=== PATIENT | male | born 1960 | race Two or more races ===

== ENCOUNTER 2016-03-02 14:31 | Inpatient (IN) | payer OTHER ==
[2016-03-02] VITALS: BP 91/69
[~2016-03-02] VITALS: Ht 165.1 cm; Wt 65.8 kg
[2016-03-02 15:06] LABS: BASOPHILS # (AUTO) 0.1 /CMM (0.0-0.2); BASOPHILS % (AUTO) 0.6 % (0.0-2.0); DIFF TOTAL % 100 %; EOSINOPHILS # (AUTO) 0.1 /CMM (0.0-0.7); EOSINOPHILS % (AUTO) 0.8 % (0.0-6.0); HEMATOCRIT 34 % (39-51); HEMOGLOBIN 10.7 g/dL (13.5-17.5); LYMPHOCYTES # (AUTO) 1.5 /CMM (0.8-4.8); MEAN CORPUSCULAR HEMOGLOBIN 27 PG (26.0-33.0); MEAN CORPUSCULAR HGB CONC 32 g/dl (31.0-36.0); MEAN CORPUSCULAR VOLUME 86 fL (80-96); MONOCYTES # (AUTO) 0.6 /CMM (0.1-1.30); MONOCYTES % (AUTO) 4.7 % (2.0-12.0); NEUTROPHILS # (AUTO) 11.3 /CMM (1.8-8.9); NEUTROPHILS % (AUTO) 82.9 % (43.0-81.0); PLATELET COUNT (AUTO) 480 /CMM (150-450); RED BLOOD CELL COUNT(AUTO) 3.92 MIL/uL (4.5-6.0); WHITE BLOOD COUNT (AUTO) 13.6 K/uL (4.3-11.0)
[2016-03-02] MEDS ORDERED: AMIN30LI4 PO (15:14)
[2016-03-02] MEDS ORDERED: ACET-868 PO (15:14)
[2016-03-02] MEDS ORDERED: GABA-532 PO (15:14)
[2016-03-02] MEDS ORDERED: HYDR-3028 PO (15:14)
[2016-03-02] MEDS ORDERED: ASCO500T8 PO (15:14)
[2016-03-02] MEDS ORDERED: MELA3TAB PO (15:14)
[2016-03-02] MEDS ORDERED: FERR325T28 PO (15:14)
[2016-03-02] MEDS ORDERED: HYDR-3326 PO (15:14)
[2016-03-02] MEDS ORDERED: ACET-2605 PO (15:14)
[2016-03-02] MEDS ORDERED: ALBU2.5V12 IH (15:14)
[2016-03-02] MEDS ORDERED: SUMA25TA PO (15:14)
[2016-03-02] MEDS ORDERED: HEPA10009 SQ (15:14)
[2016-03-02] MEDS ORDERED: FINA5TAB11 PO (15:14)
[2016-03-02] MEDS ORDERED: TRAM50TA2 PO (15:14)
[2016-03-02] MEDS ORDERED: CHLO15MO2 MM (15:14)
[2016-03-02] MEDS ORDERED: MAGN400O6 PO (15:14)
[2016-03-02] MEDS ORDERED: LANS30CA56 PO (15:14)
[2016-03-02] MEDS ORDERED: MIDO5TAB PO (15:14)
[2016-03-02] MEDS ORDERED: MULT-24 PO (15:14)
[2016-03-02] MEDS ORDERED: DOCU-270 PO (15:14)
[2016-03-02 15:16] LABS: CALCIUM, SERUM 8.9 mg/dL (8.5-10.1); CREATININE 1.4 mg/dL (0.6-1.3)
[2016-03-02 15:20] LABS: INR 1.05 (0.87-1.13)
[2016-03-02 15:22] LABS: BILIRUBIN,DIRECT 0.1 mg/dL (0.0-0.2); BILIRUBIN,TOTAL 0.4 mg/dL (0.2-1.0); INDIRECT BILIRUBIN 0.3 mg/dL (0.0-1.1); TOTAL PROTEIN, SERUM 8.1 g/dL (6.4-8.2)
[2016-03-02 15:23] LABS: KETONES,URINE Negative (NEGATIVE); LEUKOCYTE ESTERASE ,URINE Large (NEGATIVE); PH,URINE 6.5 (5.0-8.0)
[2016-03-02 15:24] LABS: TROPONIN I 0.021 ng/mL (0.00-0.056)
[2016-03-02 15:24] LABS: ADD UA MICROSCOPIC YES
[2016-03-02 15:25] LABS: ADD URINE CULTURE YES
[2016-03-02] MEDS ORDERED: IV NS 0.9% 500 ML BAG IV ONE ×2 (15:30→17:00)
[2016-03-02] MEDS ORDERED: IV NS 0.9% 500 ML IV ONE (15:30)
[2016-03-02 15:40] LABS: LACTIC ACID 1.6 mmol/L (0.4-2.0)
[2016-03-02] MEDS ORDERED: IV NS 0.9% 1,000 ML ONE ×2 (16:37→21:54)
[2016-03-02] MEDS ORDERED: IV NS 0.9% 1,000 ML BAG IV ONE (17:00)
[2016-03-02 17:45] LABS: CALCIUM, SERUM 8.3 mg/dL (8.5-10.1); CREATININE 1.5 mg/dL (0.6-1.3)
[2016-03-02] MEDS ORDERED: CEFTRIAXONE 1GM BAG (ER ONLY) 1 GM/50 ML PIGGYBACK IV ONE (18:00)
[2016-03-02] MEDS ORDERED: CEFTRIAXONE 1GM BAG (ER ONLY) 50 ML IV ONE (18:03)
[2016-03-02] MEDS ORDERED: DOSING PER PHARMACY-TOBRA INHALATION 1 EA XX PRN ×2 (18:30→19:30)
[2016-03-02] MEDS ORDERED: IV NS 0.9% 1,000 ML IV PRN (18:35)
[2016-03-02] MEDS ORDERED: MAG HYDROX/AL HYDROX/SIMETH 30 ML UDC PO PRN (19:00)
[2016-03-02] MEDS ORDERED: ONDANSETRON HCL/PF 4 MG/2 ML VIAL IVP PRN (19:00)
[2016-03-02] MEDS ORDERED: hydrOXYzine PAMOATE 50 MG CAPSULE PO PRN (19:00)
[2016-03-02] MEDS ORDERED: TOBRAMYCIN 80 MG/2 ML VIAL INH ONE (19:00)
[2016-03-02] MEDS ORDERED: PIPERACILLIN /TAZOBACTAM 3.375 G in IV D5W 50 ML IV ONE (19:00)
[2016-03-02] MEDS ORDERED: MAGNESIUM HYDROXIDE 30 ML UDC PO PRN (19:00)
[2016-03-02] MEDS ORDERED: ZOLPIDEM TARTRATE 5 MG TABLET PO PRN (19:00)
[2016-03-02] MEDS ORDERED: Z GUARD REMEDY 2 OZ OINT TP PRN (19:00)
[2016-03-02] MEDS ORDERED: FEE PK DOSING 1 MIN EA MC ONE (19:12)
[2016-03-02] MEDS ORDERED: hydrOXYzine PAMOATE 25 MG CAPSULE PO PRN (20:18)
[2016-03-02 21:00] VITALS: BP 71/37
[2016-03-02] MEDS: GABAPENTIN 100 MG CAPSULE PO SCH (21:29)
[2016-03-02] MEDS: MIDODRINE HCL (5MG) 5 MG TABLET PO SCH (21:29)
[2016-03-02] MEDS: CHLORHEXIDINE GLUCONATE 15 ML UDC MM SCH (21:29)
[2016-03-02] MEDS: DOCUSATE SODIUM 100 MG CAPSULE PO SCH (21:30)
[2016-03-02] MEDS: ENOXAPARIN SODIUM 40 MG/0.4 ML DISP.SYRIN SQ SCH (21:31)
[2016-03-02] MEDS ORDERED: SECONDARY IV SET 1 EA INFUS.SET MC ONE (21:45)
[2016-03-02] MEDS ORDERED: IV SET PRIMARY PUMP SET 1 EA INFUS.SET MC ONE (21:45)
[2016-03-02] MEDS: VANCOMYCIN 0.75 GM in IV D5W 250 ML IV SCH (21:58)
[2016-03-02] MEDS: ALBUTEROL FS 2.5 MG/0.5 ML VIAL.NEB IH SCH (23:17)
[2016-03-02 23:57] VITALS: BP 91/69
[2016-03-03] VITALS (9 sets, daily range): BP systolic 71–136; BP diastolic 41–76
[2016-03-03] MEDS: ACETAMINOPHEN 325 MG TABLET PO PRN ×4 (00:04→21:01)
[2016-03-03] MEDS ORDERED: SECONDARY IV SET 1 EA INFUS.SET MC ONE ×2 (00:13→14:50)
[2016-03-03] MEDS: PIPERACILLIN /TAZOBACTAM 3.375 G in IV D5W 50 ML IV SCH ×4 (00:37→17:17)
[2016-03-03] MEDS: GABAPENTIN 100 MG CAPSULE PO SCH ×3 (05:46→21:01)
[2016-03-03] MEDS: MIDODRINE HCL (5MG) 5 MG TABLET PO SCH ×3 (05:46→21:01)
[2016-03-03] MEDS: HYDROCODONE/APAP 5/325MG 1 EACH TABLET PO PRN (06:11)
[2016-03-03 06:48] LABS: BASOPHILS # (AUTO) 0.1 /CMM (0.0-0.2); BASOPHILS % (AUTO) 0.4 % (0.0-2.0); DIFF TOTAL % 100 %; EOSINOPHILS % (AUTO) 0.3 % (0.0-6.0); HEMATOCRIT 31 % (39-51); HEMOGLOBIN 10.6 g/dL (13.5-17.5); LYMPHOCYTES # (AUTO) 1.6 /CMM (0.8-4.8); LYMPHOCYTES % (AUTO) 10.1 % (20.0-44.0); MEAN CORPUSCULAR HEMOGLOBIN 29 PG (26.0-33.0); MEAN CORPUSCULAR HGB CONC 34 g/dl (31.0-36.0); MEAN CORPUSCULAR VOLUME 85 fL (80-96); MONOCYTES # (AUTO) 0.8 /CMM (0.1-1.30); MONOCYTES % (AUTO) 5.2 % (2.0-12.0); NEUTROPHILS # (AUTO) 13.3 /CMM (1.8-8.9); PLATELET COUNT (AUTO) 298 /CMM (150-450); RED BLOOD CELL COUNT(AUTO) 3.62 MIL/uL (4.5-6.0); WHITE BLOOD COUNT (AUTO) 15.8 K/uL (4.3-11.0)
[2016-03-03 07:06] LABS: CALCIUM, SERUM 8.8 mg/dL (8.5-10.1); CREATININE 1.1 mg/dL (0.6-1.3); POTASSIUM 3.9 mmol/L (3.5-5.1)
[2016-03-03] MEDS: ALBUTEROL FS 2.5 MG/0.5 ML VIAL.NEB IH SCH ×3 (07:30→23:16)
[2016-03-03] MEDS: TOBRAMYCIN 80 MG/2 ML VIAL INH SCH ×2 (07:30→19:34)
[2016-03-03] MEDS: PROSOURCE / PROSTAT (PYXIS) 30 ML UDC PO SCH ×2 (08:32→16:30)
[2016-03-03] MEDS: FINASTERIDE (5 MG) 5 MG TABLET PO SCH (08:32)
[2016-03-03] MEDS: PANTOPRAZOLE 40 MG TABLET.DR PO SCH (08:32)
[2016-03-03] MEDS: FERROUS SULFATE (325 MG) 325 MG/TAB TABLET PO SCH ×3 (08:32→16:30)
[2016-03-03] MEDS: ASCORBIC ACID 500 MG TABLET PO SCH (08:32)
[2016-03-03] MEDS: CHLORHEXIDINE GLUCONATE 15 ML UDC MM SCH ×2 (08:32→21:00)
[2016-03-03] MEDS: TRAMADOL HCL 50 MG TABLET PO SCH ×3 (08:32→16:30)
[2016-03-03] MEDS: VANCOMYCIN 0.75 GM in IV D5W 250 ML IV SCH (08:35)
[2016-03-03] MEDS: IV NS 0.9% 1,000 ML IV PRN ×2 (08:43→11:26)
[2016-03-03 09:15] LABS: CHOLESTEROL 114 mg/dL (<200); HDL CHOLESTEROL 39 mg/dL (40-60); IRON, SERUM 13 ug/dl (50-175); LDL 57 mg/dL (0-99); PERCENT SATURATION 6 % (14-33); THYROID STIMULATING HORMONE 0.465 uIU/mL (0.358-3.74); TOTAL IRON BINDING CAPACITY 227 ug/dl (250-450); TRIGLYCERIDES 74 mg/dL (30-150)
[2016-03-03 09:22] LABS: TROPONIN I < 0.017 ng/mL (0.00-0.056)
[2016-03-03] MEDS ORDERED: HYDROGEL DRESSING 90 GM TUBE TP PRN (11:00)
[2016-03-03] MEDS: METRONIDAZOLE 500MG/ NS 100ML 250 MG in PREMIX 1 EA IV SCH ×2 (12:47→18:28)
[2016-03-03] MEDS: HYDROGEL DRESSING 90 GM TUBE TP SCH (14:25)
[2016-03-03] MEDS: SOD FERRIC GLUC 125 MG in IV NS 0.9% 100 ML IV SCH (14:57)
[2016-03-03] MEDS: MEROPENEM 500 MG in IV NS 0.9% 50 ML IV SCH (20:58)
[2016-03-03] MEDS: DOCUSATE SODIUM 100 MG CAPSULE PO SCH (21:00)
[2016-03-03] MEDS: ACIDOPHILUS/BULGARICUS 1 EACH TAB.CHEW PO SCH (21:00)
[2016-03-03] MEDS: ENOXAPARIN SODIUM 40 MG/0.4 ML DISP.SYRIN SQ SCH (21:03)
[2016-03-03] MEDS: VANCOMYCIN HCL 125 MG/2.5 ML ORAL.SUSP PO SCH (21:05)
[2016-03-04] MEDS: IV NS 0.9% 1,000 ML IV PRN ×3 (00:11→21:45)
[2016-03-04] MEDS: METRONIDAZOLE 500MG/ NS 100ML 250 MG in PREMIX 1 EA IV SCH ×4 (00:14→17:09)
[2016-03-04] MEDS: HYDROCODONE/APAP 5/325MG 1 EACH TABLET PO PRN ×3 (00:19→21:47)
[2016-03-04] MEDS: MEROPENEM 500 MG in IV NS 0.9% 50 ML IV SCH ×3 (04:12→21:49)
[2016-03-04] MEDS: GABAPENTIN 100 MG CAPSULE PO SCH ×3 (04:15→21:47)
[2016-03-04] MEDS: MIDODRINE HCL (5MG) 5 MG TABLET PO SCH ×3 (04:15→21:46)
[2016-03-04 07:11] LABS: TROPONIN I < 0.017 ng/mL (0.00-0.056)
[2016-03-04] MEDS: ALBUTEROL FS 2.5 MG/0.5 ML VIAL.NEB IH SCH ×3 (07:15→23:33)
[2016-03-04 07:16] LABS: ALANINE AMINOTRANSFERASE 16 U/L (12-78); ALBUMIN 2.5 g/dL (3.4-5.0); ANION GAP 12 (5-14); ASPARTATE AMINOTRANSFERASE 21 U/L (15-37); BILIRUBIN,TOTAL 0.2 mg/dL (0.2-1.0); CALCIUM, SERUM 8.4 mg/dL (8.5-10.1); CARBON DIOXIDE 24 mmol/L (21-32); CHLORIDE 107 mmol/L (98-107); CREATININE 0.7 mg/dL (0.6-1.3); GFR 117 mL/min (>60); GLUCOSE 111 mg/dL (74-106); PHOSPHORUS 2.7 mg/dL (2.5-4.9); SODIUM SERUM 141 mmol/L (136-145); TOTAL PROTEIN, SERUM 7.2 g/dL (6.4-8.2); UREA NITROGEN, BLOOD 13 mg/dL (7-18)
[2016-03-04 07:25] LABS: BASOPHILS % (AUTO) 0.4 % (0.0-2.0); DIFF TOTAL % 100 %; EOSINOPHILS # (AUTO) 0.1 /CMM (0.0-0.7); EOSINOPHILS % (AUTO) 1.5 % (0.0-6.0); HEMATOCRIT 27 % (39-51); LYMPHOCYTES # (AUTO) 1.1 /CMM (0.8-4.8); LYMPHOCYTES % (AUTO) 15.8 % (20.0-44.0); MEAN CORPUSCULAR HEMOGLOBIN 29 PG (26.0-33.0); MEAN CORPUSCULAR HGB CONC 34 g/dl (31.0-36.0); MEAN CORPUSCULAR VOLUME 86 fL (80-96); MONOCYTES # (AUTO) 0.6 /CMM (0.1-1.30); MONOCYTES % (AUTO) 8.5 % (2.0-12.0); NEUTROPHILS # (AUTO) 5.3 /CMM (1.8-8.9); NEUTROPHILS % (AUTO) 73.8 % (43.0-81.0); PLATELET COUNT (AUTO) 235 /CMM (150-450); WHITE BLOOD COUNT (AUTO) 7.2 K/uL (4.3-11.0)
[2016-03-04] MEDS: TOBRAMYCIN 80 MG/2 ML VIAL INH SCH ×2 (07:35→23:33)
[2016-03-04 07:50] LABS: POTASSIUM 2.7 mmol/L (3.5-5.1)
[2016-03-04 08:00] VITALS: BP 99/54
[2016-03-04] MEDS: ACIDOPHILUS/BULGARICUS 1 EACH TAB.CHEW PO SCH ×3 (08:30→17:08)
[2016-03-04] MEDS: FINASTERIDE (5 MG) 5 MG TABLET PO SCH (08:31)
[2016-03-04] MEDS: PANTOPRAZOLE 40 MG TABLET.DR PO SCH (08:31)
[2016-03-04] MEDS: TRAMADOL HCL 50 MG TABLET PO SCH ×3 (08:31→17:09)
[2016-03-04] MEDS: ASCORBIC ACID 500 MG TABLET PO SCH (08:31)
[2016-03-04] MEDS: FERROUS SULFATE (325 MG) 325 MG/TAB TABLET PO SCH (08:31)
[2016-03-04] MEDS: CHLORHEXIDINE GLUCONATE 15 ML UDC MM SCH ×2 (08:31→21:45)
[2016-03-04] MEDS: PROSOURCE / PROSTAT (PYXIS) 30 ML UDC PO SCH ×2 (08:34→17:00)
[2016-03-04] MEDS: VANCOMYCIN HCL 125 MG/2.5 ML ORAL.SUSP PO SCH ×5 (08:34→17:00)
[2016-03-04] MEDS: POTASSIUM CHLORIDE 20 MEQ TAB.PRT.SR PO SCH ×4 (09:16→13:12)
[2016-03-04 09:35] VITALS: BP 99/54
[2016-03-04] MEDS: HYDROGEL DRESSING 90 GM TUBE TP SCH (11:46)
[2016-03-04] MEDS ORDERED: SECONDARY IV SET 1 EA INFUS.SET MC ONE (12:20)
[2016-03-04] MEDS: SOD FERRIC GLUC 125 MG in IV NS 0.9% 100 ML IV SCH (13:51)
[2016-03-04 16:00] VITALS: BP 129/79
[2016-03-04 20:00] VITALS: BP 126/75
[2016-03-04 20:19] VITALS: BP 126/75
[2016-03-04] MEDS: DOCUSATE SODIUM 100 MG CAPSULE PO SCH (21:47)
[2016-03-04] MEDS: ENOXAPARIN SODIUM 40 MG/0.4 ML DISP.SYRIN SQ SCH (21:52)
[2016-03-05] MEDS: GABAPENTIN 100 MG CAPSULE PO SCH ×3 (04:55→22:20)
[2016-03-05] MEDS: HYDROCODONE/APAP 5/325MG 1 EACH TABLET PO PRN (04:56)
[2016-03-05] MEDS: MEROPENEM 500 MG in IV NS 0.9% 50 ML IV SCH ×2 (04:57→13:23)
[2016-03-05] MEDS: MIDODRINE HCL (5MG) 5 MG TABLET PO SCH ×3 (04:57→22:22)
[2016-03-05 06:44] LABS: BASOPHILS % (AUTO) 0.3 % (0.0-2.0); DIFF TOTAL % 100 %; EOSINOPHILS # (AUTO) 0.2 /CMM (0.0-0.7); EOSINOPHILS % (AUTO) 3.2 % (0.0-6.0); HEMATOCRIT 29 % (39-51); HEMOGLOBIN 9.6 g/dL (13.5-17.5); LYMPHOCYTES # (AUTO) 1.4 /CMM (0.8-4.8); LYMPHOCYTES % (AUTO) 19.8 % (20.0-44.0); MEAN CORPUSCULAR HEMOGLOBIN 29 PG (26.0-33.0); MEAN CORPUSCULAR HGB CONC 33 g/dl (31.0-36.0); MEAN CORPUSCULAR VOLUME 86 fL (80-96); MONOCYTES # (AUTO) 0.5 /CMM (0.1-1.30); MONOCYTES % (AUTO) 7.1 % (2.0-12.0); NEUTROPHILS # (AUTO) 4.8 /CMM (1.8-8.9); NEUTROPHILS % (AUTO) 69.6 % (43.0-81.0); PLATELET COUNT (AUTO) 322 /CMM (150-450); RED BLOOD CELL COUNT(AUTO) 3.37 MIL/uL (4.5-6.0); WHITE BLOOD COUNT (AUTO) 6.9 K/uL (4.3-11.0)
[2016-03-05 06:47] LABS: CALCIUM, SERUM 8.9 mg/dL (8.5-10.1); CREATININE 0.7 mg/dL (0.6-1.3); POTASSIUM 3.3 mmol/L (3.5-5.1)
[2016-03-05] MEDS: ALBUTEROL FS 2.5 MG/0.5 ML VIAL.NEB IH SCH ×3 (07:01→23:27)
[2016-03-05] MEDS: IV NS 0.9% 1,000 ML IV PRN (07:07)
[2016-03-05] MEDS: TOBRAMYCIN 80 MG/2 ML VIAL INH SCH (07:19)
[2016-03-05 08:00] VITALS: BP 132/87
[2016-03-05] MEDS: PANTOPRAZOLE 40 MG TABLET.DR PO SCH (08:03)
[2016-03-05] MEDS: CHLORHEXIDINE GLUCONATE 15 ML UDC MM SCH ×2 (08:55→22:20)
[2016-03-05] MEDS: ASCORBIC ACID 500 MG TABLET PO SCH (08:55)
[2016-03-05] MEDS: ACIDOPHILUS/BULGARICUS 1 EACH TAB.CHEW PO SCH ×3 (08:55→17:22)
[2016-03-05] MEDS: TRAMADOL HCL 50 MG TABLET PO SCH ×3 (08:55→17:22)
[2016-03-05] MEDS: FINASTERIDE (5 MG) 5 MG TABLET PO SCH (08:55)
[2016-03-05] MEDS: PROSOURCE / PROSTAT (PYXIS) 30 ML UDC PO SCH ×2 (08:57→17:00)
[2016-03-05] MEDS: POTASSIUM CHLORIDE 20 MEQ TAB.PRT.SR PO SCH ×3 (08:58→11:00)
[2016-03-05] MEDS ORDERED: POTASSIUM CHLORIDE 20 MEQ TAB.PRT.SR PO ONE (09:30)
[2016-03-05] MEDS: HYDROGEL DRESSING 90 GM TUBE TP SCH (13:24)
[2016-03-05 16:00] VITALS: BP 125/85
[2016-03-05] MEDS ORDERED: IV NS 0.9% 250 ML IV ONE (16:07)
[2016-03-05] MEDS: SOD FERRIC GLUC 125 MG in IV NS 0.9% 100 ML IV SCH (16:08)
[2016-03-05] MEDS ORDERED: ACIDOPHILUS/BULGARICUS 1 EACH TAB.CHEW PO SCH (17:00)
[2016-03-05] MEDS: LEVOFLOXACIN (500MG) 500 MG TABLET PO SCH (17:22)
[2016-03-05 20:00] VITALS: BP 129/90
[2016-03-05] MEDS: DOCUSATE SODIUM 100 MG CAPSULE PO SCH (22:22)
[2016-03-05] MEDS: ENOXAPARIN SODIUM 40 MG/0.4 ML DISP.SYRIN SQ SCH (22:23)
[2016-03-06] MEDS: GABAPENTIN 100 MG CAPSULE PO SCH ×3 (05:50→21:01)
[2016-03-06] MEDS: MIDODRINE HCL (5MG) 5 MG TABLET PO SCH ×3 (05:51→21:00)
[2016-03-06 06:00] VITALS: BP 116/72
[2016-03-06] MEDS: HYDROCODONE/APAP 5/325MG 1 EACH TABLET PO PRN ×2 (06:09→20:10)
[2016-03-06 06:39] LABS: BASOPHILS % (AUTO) 0.4 % (0.0-2.0); DIFF TOTAL % 100 %; EOSINOPHILS # (AUTO) 0.2 /CMM (0.0-0.7); EOSINOPHILS % (AUTO) 3.8 % (0.0-6.0); HEMATOCRIT 33 % (39-51); HEMOGLOBIN 10.7 g/dL (13.5-17.5); LYMPHOCYTES # (AUTO) 1.5 /CMM (0.8-4.8); LYMPHOCYTES % (AUTO) 24.4 % (20.0-44.0); MEAN CORPUSCULAR HEMOGLOBIN 28 PG (26.0-33.0); MEAN CORPUSCULAR HGB CONC 33 g/dl (31.0-36.0); MEAN CORPUSCULAR VOLUME 86 fL (80-96); MONOCYTES # (AUTO) 0.4 /CMM (0.1-1.30); MONOCYTES % (AUTO) 6.9 % (2.0-12.0); NEUTROPHILS % (AUTO) 64.5 % (43.0-81.0); PLATELET COUNT (AUTO) 319 /CMM (150-450); RED BLOOD CELL COUNT(AUTO) 3.81 MIL/uL (4.5-6.0); WHITE BLOOD COUNT (AUTO) 6.2 K/uL (4.3-11.0)
[2016-03-06 06:40] LABS: CALCIUM, SERUM 9.4 mg/dL (8.5-10.1); CREATININE 0.6 mg/dL (0.6-1.3); POTASSIUM 3.2 mmol/L (3.5-5.1)
[2016-03-06 08:00] VITALS: BP 118/71
[2016-03-06] MEDS: ALBUTEROL FS 2.5 MG/0.5 ML VIAL.NEB IH SCH ×3 (08:01→20:30)
[2016-03-06] MEDS: PROSOURCE / PROSTAT (PYXIS) 30 ML UDC PO SCH ×2 (09:00→17:00)
[2016-03-06] MEDS: ASCORBIC ACID 500 MG TABLET PO SCH (09:24)
[2016-03-06] MEDS: ACIDOPHILUS/BULGARICUS 1 EACH TAB.CHEW PO SCH ×3 (09:24→17:13)
[2016-03-06] MEDS: CHLORHEXIDINE GLUCONATE 15 ML UDC MM SCH ×2 (09:24→21:00)
[2016-03-06] MEDS: PANTOPRAZOLE 40 MG TABLET.DR PO SCH (09:25)
[2016-03-06] MEDS: FINASTERIDE (5 MG) 5 MG TABLET PO SCH (09:25)
[2016-03-06] MEDS: TRAMADOL HCL 50 MG TABLET PO SCH ×3 (09:25→17:14)
[2016-03-06] MEDS: HYDROGEL DRESSING 90 GM TUBE TP SCH (09:26)
[2016-03-06] MEDS: POTASSIUM CHLORIDE 20 MEQ TAB.PRT.SR PO SCH ×3 (10:08→12:36)
[2016-03-06] MEDS: SOD FERRIC GLUC 125 MG in IV NS 0.9% 100 ML IV SCH (14:29)
[2016-03-06 16:00] VITALS: BP 130/81
[2016-03-06] MEDS: LEVOFLOXACIN (500MG) 500 MG TABLET PO SCH (17:13)
[2016-03-06 20:00] VITALS: BP 118/78
[2016-03-06] MEDS: DOCUSATE SODIUM 100 MG CAPSULE PO SCH (21:00)
[2016-03-06] MEDS: ENOXAPARIN SODIUM 40 MG/0.4 ML DISP.SYRIN SQ SCH (21:01)
[2016-03-07] MEDS: GABAPENTIN 100 MG CAPSULE PO SCH ×2 (05:01→12:29)
[2016-03-07] MEDS: MIDODRINE HCL (5MG) 5 MG TABLET PO SCH ×2 (05:02→12:33)
[2016-03-07] MEDS: HYDROCODONE/APAP 5/325MG 1 EACH TABLET PO PRN (05:05)
[2016-03-07 06:59] LABS: CALCIUM, SERUM 9.7 mg/dL (8.5-10.1); CREATININE 0.7 mg/dL (0.6-1.3); PHOSPHORUS 4.6 mg/dL (2.5-4.9); POTASSIUM 3.4 mmol/L (3.5-5.1)
[2016-03-07] MEDS: ALBUTEROL FS 2.5 MG/0.5 ML VIAL.NEB IH SCH (07:31)
[2016-03-07 08:00] VITALS: BP 105/70
[2016-03-07] MEDS: ASCORBIC ACID 500 MG TABLET PO SCH (08:44)
[2016-03-07] MEDS: PANTOPRAZOLE 40 MG TABLET.DR PO SCH (08:44)
[2016-03-07] MEDS: CHLORHEXIDINE GLUCONATE 15 ML UDC MM SCH (08:44)
[2016-03-07] MEDS: ACIDOPHILUS/BULGARICUS 1 EACH TAB.CHEW PO SCH ×2 (08:44→12:33)
[2016-03-07] MEDS: TRAMADOL HCL 50 MG TABLET PO SCH ×2 (08:44→12:33)
[2016-03-07] MEDS: PROSOURCE / PROSTAT (PYXIS) 30 ML UDC PO SCH (08:44)
[2016-03-07] MEDS: FINASTERIDE (5 MG) 5 MG TABLET PO SCH (08:44)
[2016-03-07] MEDS: HYDROGEL DRESSING 90 GM TUBE TP SCH (08:45)
[2016-03-07] MEDS ORDERED: POTASSIUM CHLORIDE 20 MEQ TAB.PRT.SR PO SCH (12:30)
[2016-03-07 12:33] VITALS: BP 90/55
[2016-03-07] MEDS ORDERED: LEVO500T15 PO (13:22)
== END 2016-03-07 16:30 | DRG 871 ==
LOC: ER 14:38 → TELE 20:05 → MED 03-03 11:51
PROVIDERS: ADMIT Internal Medicine; ATTEND Internal Medicine
DX: A41.9 Sepsis, unspecified organism (principal); N17.0 Acute kidney failure with tubular necrosis; R53.2 Functional quadriplegia; L89.153 Pressure ulcer of sacral region, stage 3; N39.0 Urinary tract infection, site not specified; J96.10 Chronic respiratory failure, unspecified whether with hypoxia or hypercapnia; E44.0 Moderate protein-calorie malnutrition; J44.9 Chronic obstructive pulmonary disease, unspecified; Z86.73 Personal history of transient ischemic attack (TIA), and cerebral infarction without residual deficits; J40 Bronchitis, not specified as acute or chronic; Z93.0 Tracheostomy status; Z93.1 Gastrostomy status; D63.8 Anemia in other chronic diseases classified elsewhere; E86.0 Dehydration; B96.20 Unspecified Escherichia coli [E. coli] as the cause of diseases classified elsewhere; E78.5 Hyperlipidemia, unspecified; E87.6 Hypokalemia; I10 Essential (primary) hypertension; I25.10 Atherosclerotic heart disease of native coronary artery without angina pectoris; K21.9 Gastro-esophageal reflux disease without esophagitis; R13.10 Dysphagia, unspecified; Z87.891 Personal history of nicotine dependence; D50.9 Iron deficiency anemia, unspecified; I95.9 Hypotension, unspecified; L89.619 Pressure ulcer of right heel, unspecified stage; Y24.9XXS Unspecified firearm discharge, undetermined intent, sequela; Z87.898 Personal history of other specified conditions; J04.10 Acute tracheitis without obstruction; Z68.24 Body mass index [BMI] 24.0-24.9, adult; R65.20 Severe sepsis without septic shock
CPT/HCPCS: 31720; 36415; 71010-TC; 80048-TC; 80053-TC; 80061-TC; 80076-TC; 80202-TC; 81000-TC; 82272-TC; 82306; 82728-TC; 83540-TC; 83605-TC; 83735-TC; 84100-TC; 84439-TC; 84443-TC; 84484-TC; 85025-TC; 85730-TC; 87040-TC; 87045-TC; 87081-TC; 87086-TC; 87186-TC; 93307-TC; 97001-TC; A4216; A4606; A4623; A6248; A6253; A6402; J0696; J1650; J2185; J2543; J2916; J3260; J3370; J3490; J7030; J7040; J7050; J7060; Q0177; Z7610

== ENCOUNTER 2016-09-05 01:01 | Inpatient (IN) | payer MEDICAID, OTHER ==
[~2016-09-05] VITALS: Ht 172.7 cm; Wt 72.6 kg
[2016-09-05] VITALS (72 sets, daily range): BP systolic 52–154; BP diastolic 28–92
[~2016-09-05 01:01] MED LIST: ACET-2605 PO; ACET-868 PO; ALBU2.5V13 IH; AMIN30LI4 PO; ASCO500T8 PO; CHLO15MO2 MM; DOCU-270 PO; FERR325T28 PO; FINA5TAB11 PO; GABA-532 PO; HEPA10009 SQ; HYDR-3028 PO; HYDR-3326 PO; LANS30CA56 PO; LEVO500T15 PO; MAGN400O6 PO; MELA3TAB PO; MIDO5TAB PO; MULT-24 PO; SUMA25TA PO; TRAM50TA2 PO
--- NOTE | 2016-09-05 01:05 | NUR ---
56 yo female bb ra from [facility]. pt is alert x o, non verbal. pt skin is warm, pt is noted to be tachy in the 120's, hypotensive. md notified. pt gowned, place don teletypesetter monitor. rr even and unlabored. noted trachea. 20g left fa iv started by ems. awaiting orders from provider, will continue to monitor
[2016-09-05] MEDS ORDERED: IV NS 0.9% 500 ML IV ONE (01:11)
[2016-09-05] MEDS ORDERED: IV NS 0.9% 2,000 ML ONE (01:11)
[2016-09-05] MEDS ORDERED: SECONDARY IV SET 1 EA INFUS.SET MC ONE (01:12)
[2016-09-05] MEDS ORDERED: IV SET PRIMARY PUMP SET 1 EA INFUS.SET MC ONE ×5 (01:12→05:25)
--- NOTE | 2016-09-05 01:12 | NUR ---
md glenroy elias bed side for eval
--- NOTE | 2016-09-05 01:21 | NUR ---
medicated pt as ordered
[2016-09-05] MEDS ORDERED: CEFTRIAXONE 1GM BAG (ER ONLY) 50 ML IV ONE ×2 (01:25→01:30)
[2016-09-05] MEDS ORDERED: IV NS 0.9% 1,000 ML BAG IV ONE ×3 (01:30→10:00)
[2016-09-05 01:39] LABS: BASOPHILS % (AUTO) 0.1 % (0.0-2.0); HEMATOCRIT 34 % (39-51); HEMOGLOBIN 11.5 g/dL (13.5-17.5); LYMPHOCYTES # (AUTO) 1.7 /CMM (0.8-4.8); LYMPHOCYTES % (AUTO) 5.5 % (20.0-44.0); MEAN CORPUSCULAR HEMOGLOBIN 29 PG (26.0-33.0); MEAN CORPUSCULAR HGB CONC 34 g/dl (31.0-36.0); MEAN CORPUSCULAR VOLUME 87 fL (80-96); MONOCYTES % (AUTO) 3.2 % (2.0-12.0); NEUTROPHILS % (AUTO) 91.2 % (43.0-81.0); PLATELET COUNT (AUTO) 458 /CMM (150-450); RDW COEFFICIENT OF VARIATION 14.8 (11.5-15.0); RED BLOOD CELL COUNT(AUTO) 3.94 MIL/uL (4.5-6.0)
[2016-09-05 01:44] LABS: WHITE BLOOD COUNT (AUTO) 30.7 K/uL (4.3-11.0)
[2016-09-05 01:47] LABS: ABG BASE EXCESS -5.1 mmol/L; ABG OXYGEN SATURATION 95.5 % (92.0-98.5); ABG PCO2 28.7 mmHg (35.0-45.0); ABG PH 7.421 (7.350-7.450); ABG PO2 85.8 mmHg (75.0-100.0); COHb 0.1 % (0.5-1.5); MetHb 0.7 % (0.0-1.5); O2Hb 94.7 % (94.0-97.0); SITE, ABG Right Radial; VENT MODE, BG Nasal Cannula; VT, ABG 24 mL
[2016-09-05 01:49] LABS: APPEARANCE,URINE SL CLOUDY (CLEAR); BILIRUBIN,URINE NEGATIVE (NEGATIVE); BLOOD, URINE NEGATIVE Ery/uL (NEGATIVE); COLOR,URINE YELLOW (YELLOW); KETONES,URINE NEGATIVE (NEGATIVE); LEUKOCYTE ESTERASE ,URINE 1+ (NEGATIVE); NITRITE, URINE POSITIVE (NEGATIVE); PROTEIN,URINE NEGATIVE (NEGATIVE); UGLUCOSE NEGATIVE (NEGATIVE); UROBILINOGEN,URINE 0.2 EU/dL (0.2)
--- NOTE | 2016-09-05 01:51 | NUR ---
pt transported to ct via gurney by radiology team
[2016-09-05 01:54] LABS: CALCIUM, SERUM 8.5 mg/dL (8.5-10.1); CARBON DIOXIDE 18 mmol/L (21-32); CHLORIDE 104 mmol/L (98-107); CREATININE 2.9 mg/dL (0.6-1.3); GLUCOSE 137 mg/dL (74-106); POTASSIUM 4.2 mmol/L (3.5-5.1); SODIUM SERUM 136 mmol/L (136-145); UREA NITROGEN, BLOOD 31 mg/dL (7-18)
[2016-09-05 01:55] LABS: INR 1.18 (0.87-1.13); PROTHROMBIN TIME 12.8 SECS (9.5-12.7)
[2016-09-05 01:57] LABS: BACTERIA,URINE 3+ /HPF (None Seen); CALCIUM OXALATE CRYSTALS,UR Many /HPF (None Seen); RBC,URINE 0-2 /HPF (0-2); SQUAMOUS EPITHELIAL CELL,UR Rare /HPF (None Seen)
[2016-09-05 01:58] LABS: MUCUS,URINE Few /LPF (None Seen)
[2016-09-05 01:59] LABS: TROPONIN I < 0.017 ng/mL (0.00-0.056)
[2016-09-05 02:02] LABS: BAND % (MANUAL) 2 % (0.0-5.0); LYMPHOCYTES % (MANUAL) 12 % (16-48); MONOCYTES % (MANUAL) 8 % (0-11.0); NEUTROPHILS % (MANUAL) 78 (42-76)
[2016-09-05 02:06] LABS: ALANINE AMINOTRANSFERASE 11 U/L (12-78); ALBUMIN 2.7 g/dL (3.4-5.0); ALKALINE PHOSPHATASE 101 U/L (46-116); ASPARTATE AMINOTRANSFERASE 11 U/L (15-37); B-TYPE NATRIURETIC PEPTIDE 3149 PG/ML (0-125); BILIRUBIN,DIRECT 0.1 mg/dL (0.0-0.2); BILIRUBIN,TOTAL 0.5 mg/dL (0.2-1.0); TOTAL PROTEIN, SERUM 7.4 g/dL (6.4-8.2)
--- NOTE | 2016-09-05 02:45 | NUR ---
pt is now awake, alert x 3, md notified
[2016-09-05] MEDS ORDERED: IV NS 0.9% 1,000 ML ONE ×2 (02:49→04:53)
[2016-09-05] MEDS ORDERED: IV SET PRIMARY 1 EA INFUS.SET MC ONE (02:49)
[2016-09-05] MEDS ORDERED: PIPERACILLIN /TAZOBACTAM 3.375 G in IV D5W 50 ML IV ONE (03:00)
[2016-09-05] MEDS ORDERED: PIPERACILLIN /TAZOBACTAM 3.375 G VIAL IV ONE (03:02)
[2016-09-05] MEDS ORDERED: IV NS 0.9% 1,000 ML IV PRN (03:08)
--- NOTE | 2016-09-05 03:17 | NUR ---
pt urine out [id number] ml, notified
[2016-09-05] MEDS ORDERED: HYDROCODONE/APAP 10/325MG 1 EA TABLET PO PRN (03:30)
[2016-09-05] MEDS ORDERED: MAGNESIUM HYDROXIDE 30 ML UDC PO PRN (03:30)
[2016-09-05] MEDS ORDERED: HYDROCODONE/APAP 5/325MG 1 EACH TABLET PO PRN (03:30)
[2016-09-05] MEDS ORDERED: MAG HYDROX/AL HYDROX/SIMETH 30 ML UDC PO PRN (03:30)
[2016-09-05] MEDS ORDERED: VANCOMYCIN 1 GM in IV D5W 250 ML IV ONE (04:00)
[2016-09-05 04:04] LABS: THYROID STIMULATING HORMONE 0.912 uIU/mL (0.358-3.74)
--- NOTE | 2016-09-05 04:41 | NUR ---
TRANSPORTED PT TO ICU BED WITHOUT INCIDENT
[2016-09-05 04:48] LABS: MAGNESIUM 1.6 mg/dL (1.8-2.4); PHOSPHORUS 3.9 mg/dL (2.5-4.9)
[2016-09-05] MEDS ORDERED: IV D5W 500 ML IV ONE (04:53)
[2016-09-05] MEDS ORDERED: NOREPINEPHRINE 4 MG/4 ML AMPUL IV ONE (04:53)
[2016-09-05] MEDS: IV NS 0.9% 1,000 ML IV PRN ×3 (05:02→21:34)
[2016-09-05] MEDS: NOREPINEPHRINE 8 MG in IV D5W 500 ML IV PRN ×2 (05:03→13:40)
--- NOTE | 2016-09-05 05:05 | NUR ---
MORTAR CARRIER DF RECEIVED PT FROM ER PT ADMIT FOR SEPSIS UTI. PT A/OX4 CALM,COOPERATIVE,DENIES PAIN. 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 PT WITH LEFT EYE BLINDNESS. PT WITH TRACH CUFF DEFLATED PER PT HE IS IN THE PROCESS OF DECANULATION PLAN AND HAS NOT REQUIRED VENTILATION SUPPORT. PT NSR ON MONITOR PT WITH HYPOTENSION OF 85/44, 71/42 LEVOPHED GTT TO BE STARTED AT 5MCG. PT REPORTS HE EATS PO FOODS DIET ORDERED.PT WITH SACRAL WOUND CLEANSED AND MEPILEX APPLIED.
[2016-09-05] MEDS ORDERED: IV D5W 250 ML IV ONE (05:25)
[2016-09-05] MEDS ORDERED: VANCOMYCIN 1 GM VIAL ONE (05:25)
[2016-09-05] MEDS ORDERED: PIPERACILLIN /TAZOBACTAM 2.25 G in IV D5W 50 ML IV SCH (06:00)
--- NOTE | 2016-09-05 06:50 | NUR ---
CHILD & ADOLESCENT PSYCHIATRIST DF PT LEVOPHED GTT TITRATED OFF SEE IV FLOW SHEET LAST BP OF 154/89.
--- NOTE | 2016-09-05 08:00 | NUR ---
STOCK BUYER; ASSESSMENT RECEIVED PT AWAKE AND ORIENTED X3. PT DENIES ANY PAIN AT THIS TIME. PT HAS TRACH , CAPPED. PT CURRENTLY OFF OF LEVOPHED. NOTED PT WITH FEVER OF 101. COOLING MEASURES APPLIED WILL REVIEW MEDICATIONS. NOTED JOHNSON CATH NOT DRAINING, CATHETER IRRIGATED NO FLUID RETURN. F/C REPLACED. NOTED ABOUT 350ML OUT ONCE NEW JOHNSON INSERTED. URINE APPEARS PURULENT, CLOUDY. WILL SENT URINE FOR CULTURE. PT HAD LARGE BM PERICARE DONE. WILL CONTINUE TO MONITOR CLOSELY.
[2016-09-05 08:13] LABS: IRON, SERUM 11 ug/dl (50-175); TOTAL IRON BINDING CAPACITY 179 ug/dl (250-450)
[2016-09-05 08:27] LABS: FERRITIN 266 ng/mL (8-388)
[2016-09-05] MEDS ORDERED: FEE PK DOSING 1 MIN EA MC ONE (08:54)
[2016-09-05] MEDS ORDERED: PANTOPRAZOLE 40 MG VIAL IV SCH (09:00)
[2016-09-05] MEDS: FAMOTIDINE/PF INJ 20 MG/2 ML VIAL IV SCH (09:56)
[2016-09-05] MEDS: HEPARIN SODIUM, PORCINE 5000 UNITS/1 ML VIAL SQ SCH ×2 (09:56→21:47)
[2016-09-05] MEDS: ACETAMINOPHEN 325 MG TABLET PO PRN ×2 (09:59→20:02)
[2016-09-05] MEDS: PIPERACILLIN /TAZOBACTAM 3.375 G in IV D5W 50 ML IV SCH ×2 (11:33→17:20)
[2016-09-05] MEDS: BOOST GLUCOSE CONTROL VANILLA 237 ML BOX PO SCH (17:00)
[2016-09-05] MEDS: FERROUS SULFATE (325 MG) 325 MG/TAB TABLET PO SCH (17:20)
--- NOTE | 2016-09-05 19:48 | NUR ---
RECRUITMENT SPECIALIST. INITIAL ASSESSMENT.RECEIVED THE PT REST ON THE BED. AWAKE, ALERT, FOLLOW COMMANDS. TRAFFIC RATE CLERK SHOWING S TACH. TRACH INTACT. PORTEX 6. PT ON ROOM AIR. IV RTUPPER ARM PICCLINE. IVF NS 125ML/H.HOB ELEVATED. FC PATENT.TURN AND REPOSITION Q2H. WILL CONTINUE [id number] VITALS.
[2016-09-06] VITALS (83 sets, daily range): BP systolic 79–150; BP diastolic 40–101
[2016-09-06] MEDS: PIPERACILLIN /TAZOBACTAM 3.375 G in IV D5W 50 ML IV SCH ×5 (00:52→23:56)
[2016-09-06] MEDS ORDERED: IV D5W 500 ML IV ONE (00:56)
[2016-09-06] MEDS ORDERED: NOREPINEPHRINE 4 MG/4 ML AMPUL IV ONE (00:56)
[2016-09-06] MEDS: NOREPINEPHRINE 8 MG in IV D5W 500 ML IV PRN ×2 (01:08→15:10)
[2016-09-06] MEDS: ACETAMINOPHEN 325 MG TABLET PO PRN (03:27)
--- NOTE | 2016-09-06 03:55 | NUR ---
SAP BOBJ DEVELOPER. TEMPERATURE 100.8. TYLENOL GIVEN.
--- NOTE | 2016-09-06 03:55 | NUR ---
CERAMIC RESEARCH ENGINEER. AM CARE. ORAL CARE, BED BATH GIVEN. REMAINING SAME PT ON ROOM AIR. SAT 98%. TRACH INTACT. TEMPERATURE 100.8. TYLENOL GIVEN. PER ORDERED. FC PATENT. IV RT UPPER ARM PICC LINE. IVF NS 125ML/H. HOB ELEVATED. WOUND DRESSING DONE. FC PATENT. TURN AND REPOSITION Q2H. WILL CONTINUE TO MONITOR VITALS.
[2016-09-06 04:33] LABS: BASOPHILS # (AUTO) 0.2 /CMM (0.0-0.2); BASOPHILS % (AUTO) 0.8 % (0.0-2.0); HEMATOCRIT 25 % (39-51); HEMOGLOBIN 8.6 g/dL (13.5-17.5); LYMPHOCYTES # (AUTO) 1.1 /CMM (0.8-4.8); MEAN CORPUSCULAR HEMOGLOBIN 29 PG (26.0-33.0); MEAN CORPUSCULAR HGB CONC 34 g/dl (31.0-36.0); MEAN CORPUSCULAR VOLUME 86 fL (80-96); MONOCYTES # (AUTO) 0.7 /CMM (0.1-1.30); MONOCYTES % (AUTO) 3.2 % (2.0-12.0); NEUTROPHILS # (AUTO) 20.3 /CMM (1.8-8.9); PLATELET COUNT (AUTO) 336 /CMM (150-450); RED BLOOD CELL COUNT(AUTO) 2.95 MIL/uL (4.5-6.0); WHITE BLOOD COUNT (AUTO) 22.4 K/uL (4.3-11.0)
[2016-09-06] MEDS: IV NS 0.9% 1,000 ML IV PRN ×2 (05:02→16:46)
[2016-09-06 05:08] LABS: TROPONIN I 0.021 ng/mL (0.00-0.056)
[2016-09-06 05:30] LABS: ALBUMIN 2.1 g/dL (3.4-5.0); BILIRUBIN,TOTAL 0.3 mg/dL (0.2-1.0); CALCIUM, SERUM 7.8 mg/dL (8.5-10.1); CREATININE 1.5 mg/dL (0.6-1.3); MAGNESIUM 1.5 mg/dL (1.8-2.4); PHOSPHORUS 2.6 mg/dL (2.5-4.9); TOTAL PROTEIN, SERUM 6.3 g/dL (6.4-8.2)
[2016-09-06 05:33] LABS: POTASSIUM 2.6 mmol/L (3.5-5.1)
[2016-09-06 05:36] LABS: LYMPHOCYTES % (MANUAL) 5 % (16-48); MONOCYTES % (MANUAL) 5 % (0-11.0); NEUTROPHILS % (MANUAL) 90 (42-76)
[2016-09-06] MEDS ORDERED: VANCOMYCIN 1 GM in IV D5W 250 ML IV SCH (06:00)
[2016-09-06] MEDS ORDERED: POTASSIUM CHLORIDE 20 MEQ TAB.PRT.SR PO ONE ×3 (06:17→06:30)
[2016-09-06] MEDS ORDERED: POTASSIUM CL. PREMIX PERIPHER. 0 ML ONE (06:17)
[2016-09-06] MEDS ORDERED: SECONDARY IV SET 1 EA INFUS.SET MC ONE (06:17)
[2016-09-06] MEDS ORDERED: IV SET PRIMARY PUMP SET 1 EA INFUS.SET MC ONE (06:52)
[2016-09-06] MEDS ORDERED: Magnesium 1GM/D5W 100ML PREMIX 100 ML IV ONE (06:52)
[2016-09-06] MEDS: Magnesium 1GM/D5W 100ML PREMIX 100 ML IV SCH ×2 (06:58→08:19)
[2016-09-06] MEDS: MULTIVITAMINS,THERAGRAN 1 UDTAB TABLET PO SCH (08:19)
[2016-09-06] MEDS: FERROUS SULFATE (325 MG) 325 MG/TAB TABLET PO SCH ×2 (08:19→16:24)
[2016-09-06] MEDS: ASCORBIC ACID 500 MG TABLET PO SCH (08:19)
[2016-09-06] MEDS: HEPARIN SODIUM, PORCINE 5000 UNITS/1 ML VIAL SQ SCH ×2 (08:20→20:35)
[2016-09-06] MEDS: BOOST GLUCOSE CONTROL VANILLA 237 ML BOX PO SCH ×3 (08:48→16:24)
[2016-09-06] MEDS: POTASSIUM CHLORIDE 20 MEQ TAB.PRT.SR PO SCH ×3 (08:48→10:42)
--- NOTE | 2016-09-06 09:07 | NUR ---
WOUND CARE CONSULT: PT PRESENTS WITH SACRAL UNSTAGEABLE ULCER AND RT MEDIAL FOOT DEEP TISSUE INJURY(INTACT), PRESENT ON ADMISSION. DR LOLY CHATTERJEE, SURGEON ON CASE. PT ON FIRST STEP MATTRESS. ALL SKIN PROTECTION MEASURES IN PLACE. WOUND RECOMMENDATIONS DISCUSSED WITH NURSING STAFF. WILL SEE PRN. CAMARENA IN AGREEMENT WITH PLAN OF CARE. Addendum: 09/06/16 at 0910 by MARSHALL PENNINGTON WNDNU Amended: Links added.
[2016-09-06] MEDS: FAMOTIDINE/PF INJ 20 MG/2 ML VIAL IV SCH (09:26)
[2016-09-06] MEDS ORDERED: HYDROGEL DRESSING 90 GM TUBE TP PRN (09:30)
[2016-09-06] MEDS ORDERED: SILVER NITRATE APPLICATOR 1 EA BOX TP ONE (10:30)
[2016-09-06] MEDS ORDERED: LIDOCAINE 1%-EPI 1:100,000 20 ML VIAL TP ONE (10:30)
[2016-09-06] MEDS: HYDROGEL DRESSING 90 GM TUBE TP SCH (10:42)
--- NOTE | 2016-09-06 10:46 | NUR ---
TRACTOR TRAILER DRIVER NOTE 0720: Received patient awake. A/Ox3. Paraplegic. ST 100's on the monitor. Noted with temp 100.0, refused cooling measures and said he just took Tylenol. With Ortega cath intact. Noted with large amount of clear yellow urine drained to BSD. Trache plugged, patient on room air, no respiratory distress noted at this time. 0830: S/E by Wound care nurse, noted still with loose stool. Applied Flexiseal. 0845: S/E by Dr. Vela, no new order at this time. Made aware for patient still with diarrhea. Held Heparin for plan of wound debridement today. Prepared stuffs at bedside. 1045: Microbiology called and informed CDiff +, aware, on medication for CDiff. Isolation precaution maintained and observed.
[2016-09-06] MEDS: VANCOMYCIN HCL 125 MG/2.5 ML ORAL.SUSP PO SCH ×3 (11:31→23:56)
[2016-09-06] MEDS: VANCOMYCIN 0.75 GM in IV D5W 250 ML IV SCH (17:07)
--- NOTE | 2016-09-06 19:00 | NUR ---
RN INITIAL NOTES RECEIVED PT AWAKE ON BED, A/O X3, BLIND ON LEFT EYE. ON ROOM AIR, SATURATING WELL, PORTEX 6 TRACH IS [address]UGGED. CURRENTLY [address] ON THE MONITOR, HR 100-110'S. JOHNSON CATH NOTED. FLEXISEAL WITH DARK BROWN LIQUID OUTPUT NOTED. RIGHT UPPER ARM PICC WITH ND @ 125MLS/HR AND LEVO DRIP @ 6MCG/MIN, LEFT WRIST 20G AND RIGHT HAND 20G, ALL FLUSHED AND PATENT, NO S/S OF INFILTRATION/INFECTION, DRESSINGS CDI. BED LOW AND LOCKED, SIDERAILS UP, CALL LIGHT WITHIN REACH. WILL MONITOR
[2016-09-06] MEDS: MUPIROCIN OINT 2% 22 GM TUBE SCH (20:34)
[2016-09-07] VITALS (98 sets, daily range): BP systolic 71–134; BP diastolic 19–101
[2016-09-07] MEDS: IV NS 0.9% 1,000 ML IV PRN (02:13)
[2016-09-07 05:07] LABS: HEMATOCRIT 25 % (39-51); HEMOGLOBIN 8.5 g/dL (13.5-17.5); LYMPHOCYTES # (AUTO) 1.3 /CMM (0.8-4.8); LYMPHOCYTES % (AUTO) 8.1 % (20.0-44.0); MEAN CORPUSCULAR HEMOGLOBIN 29 PG (26.0-33.0); MEAN CORPUSCULAR HGB CONC 34 g/dl (31.0-36.0); MEAN CORPUSCULAR VOLUME 86 fL (80-96); MONOCYTES # (AUTO) 0.5 /CMM (0.1-1.30); MONOCYTES % (AUTO) 3.4 % (2.0-12.0); NEUTROPHILS # (AUTO) 14.1 /CMM (1.8-8.9); NEUTROPHILS % (AUTO) 88.5 % (43.0-81.0); PLATELET COUNT (AUTO) 284 /CMM (150-450); RED BLOOD CELL COUNT(AUTO) 2.95 MIL/uL (4.5-6.0)
[2016-09-07] MEDS: VANCOMYCIN HCL 125 MG/2.5 ML ORAL.SUSP PO SCH ×4 (05:16→23:37)
[2016-09-07] MEDS: PIPERACILLIN /TAZOBACTAM 3.375 G in IV D5W 50 ML IV SCH ×2 (05:16→11:57)
[2016-09-07 05:27] LABS: CALCIUM, SERUM 7.9 mg/dL (8.5-10.1); CREATININE 0.9 mg/dL (0.6-1.3); MAGNESIUM 1.5 mg/dL (1.8-2.4); PHOSPHORUS 1.7 mg/dL (2.5-4.9)
[2016-09-07 05:56] LABS: POTASSIUM 2.4 mmol/L (3.5-5.1)
[2016-09-07] MEDS: VANCOMYCIN 0.75 GM in IV D5W 250 ML IV SCH ×2 (06:19→17:20)
[2016-09-07] MEDS ORDERED: Magnesium 1GM/D5W 100ML PREMIX PIGGYBACK IV ONE ×2 (06:30→08:00)
[2016-09-07] MEDS ORDERED: POTASSIUM CHLORIDE 20 MEQ TAB.PRT.SR PO ONE ×3 (06:30→11:00)
[2016-09-07] MEDS ORDERED: NEUTRA PHOS 1 POWD.PACKET PO ONE ×2 (06:30→08:00)
[2016-09-07] MEDS ORDERED: POTASSIUM CL. PREMIX PERIPHER. 50 ML IV SCH ×2 (06:30→07:30)
--- NOTE | 2016-09-07 06:30 | NUR ---
RN CLOSING NOTES NOTIFIED PRODUCT MANAGEMENT ANALYST JAVID TSAI ACNP ABOUT POTASSIUM 2.4, PHOS 1.7, AND MAG 1.5. ORDERS RECEIVED: KCL PO 60 MEQ, KCL IV 40MEQ, MAG IV 2G, AND NEUTRA PHOS 2 PACKETS. PATIENT REMAINS STABLE OF THE MOMENT. ALL DUE MEDS GIVEN, AM CARE PROVIDED. WILL ENDORSE CONTINUITY OF CARE TO AM RN
[2016-09-07] MEDS: POTASSIUM CL. PREMIX PERIPHER. 50 ML IV SCH ×4 (07:30→10:53)
[2016-09-07] MEDS: Magnesium 1GM/D5W 100ML PREMIX 100 ML IV SCH ×6 (07:30→11:57)
[2016-09-07] MEDS: BOOST GLUCOSE CONTROL VANILLA 237 ML BOX PO SCH ×3 (08:08→17:20)
[2016-09-07] MEDS: ASCORBIC ACID 500 MG TABLET PO SCH (08:09)
[2016-09-07] MEDS: HYDROGEL DRESSING 90 GM TUBE TP SCH (08:09)
[2016-09-07] MEDS: FERROUS SULFATE (325 MG) 325 MG/TAB TABLET PO SCH ×2 (08:09→17:23)
[2016-09-07] MEDS: MUPIROCIN OINT 2% 22 GM TUBE SCH ×2 (08:10→21:15)
[2016-09-07] MEDS: MULTIVITAMINS,THERAGRAN 1 UDTAB TABLET PO SCH (08:15)
[2016-09-07] MEDS: HEPARIN SODIUM, PORCINE 5000 UNITS/1 ML VIAL SQ SCH (08:15)
[2016-09-07] MEDS: FAMOTIDINE/PF INJ 20 MG/2 ML VIAL IV SCH (09:44)
--- NOTE | 2016-09-07 10:29 | NUR ---
HANDLE ATTACHER NOTE 0720: Received patient awake, A/Ox3. With trache plugged, on room air, tolerated well. No c/o any discomfort at this time. SR 90's on the monitor. With ALBERTO PICC intact, IVF infusing well. On Levo @ 4mg, SBP >100, titrated as ordered. With Ortega cath intact, noted with large amount of pale yellow urine with sediments drained to BSD. With Flexiseal intact, still noted with loose ching stool. On isolation precaution for CDiff and MRSA nares, maintained and observed. 0930: S/E by Julia DUNN and made aware re: patient still on Levo @ 2mcg, no debridement today per [facility]. Heparin given. 1015: Clarified with Dr. Mcwilliams re: MgSo4 to be given 2more bags.
[2016-09-07] MEDS: Potassium Chloride 40 MEQ in IV NS 0.9% 1,000 ML IV PRN ×2 (13:52→23:37)
[2016-09-07] MEDS: MEROPENEM 500 MG in IV NS 0.9% 50 ML IV SCH ×2 (15:47→23:04)
[2016-09-07] MEDS: ONDANSETRON HCL/PF 4 MG/2 ML VIAL IVP PRN (16:43)
[2016-09-07 17:17] LABS: CALCIUM, SERUM 7.5 mg/dL (8.5-10.1); CREATININE 0.8 mg/dL (0.6-1.3); MAGNESIUM 2.3 mg/dL (1.8-2.4); POTASSIUM 3.1 mmol/L (3.5-5.1)
[2016-09-07] MEDS: NOREPINEPHRINE 8 MG in IV D5W 500 ML IV PRN (18:38)
--- NOTE | 2016-09-07 20:00 | NUR ---
Received patient A/O X 4.Verbally responsive.Denies any discomfort at present.Afebrile.On RA saturation 96%. Trach plugged .SR per monitor.Levophed drip infusing at 2 mcg/min for BP support and will titrate accordingly. Both IVF and Levophed drip infusing via smitha picc line.Site intact.FC to gravity draining clear yellow urine. Flexi seal draining dark brown liquid stool.C-diff and MRSA isolation precaution implemented.Turned and repositioned.
[2016-09-07] MEDS: ENOXAPARIN SODIUM 40 MG/0.4 ML DISP.SYRIN SQ SCH (21:14)
[2016-09-08] VITALS (56 sets, daily range): BP systolic 79–149; BP diastolic 45–101
[2016-09-08] MEDS: ONDANSETRON HCL/PF 4 MG/2 ML VIAL IVP PRN (00:33)
[2016-09-08 04:51] LABS: BASOPHILS % (AUTO) 0.2 % (0.0-2.0); EOSINOPHILS # (AUTO) 0.2 /CMM (0.0-0.7); EOSINOPHILS % (AUTO) 1.5 % (0.0-6.0); HEMATOCRIT 31 % (39-51); HEMOGLOBIN 10.4 g/dL (13.5-17.5); LYMPHOCYTES # (AUTO) 1.6 /CMM (0.8-4.8); LYMPHOCYTES % (AUTO) 10.2 % (20.0-44.0); MEAN CORPUSCULAR HEMOGLOBIN 29 PG (26.0-33.0); MEAN CORPUSCULAR HGB CONC 34 g/dl (31.0-36.0); MEAN CORPUSCULAR VOLUME 87 fL (80-96); MONOCYTES # (AUTO) 0.5 /CMM (0.1-1.30); MONOCYTES % (AUTO) 3.2 % (2.0-12.0); NEUTROPHILS # (AUTO) 13.2 /CMM (1.8-8.9); NEUTROPHILS % (AUTO) 84.9 % (43.0-81.0); PLATELET COUNT (AUTO) 315 /CMM (150-450); RDW COEFFICIENT OF VARIATION 15.2 (11.5-15.0); RED BLOOD CELL COUNT(AUTO) 3.53 MIL/uL (4.5-6.0); WHITE BLOOD COUNT (AUTO) 15.5 K/uL (4.3-11.0)
[2016-09-08 04:59] LABS: CALCIUM, SERUM 8.2 mg/dL (8.5-10.1); CREATININE 0.8 mg/dL (0.6-1.3); MAGNESIUM 1.8 mg/dL (1.8-2.4); POTASSIUM 3.5 mmol/L (3.5-5.1)
[2016-09-08] MEDS: VANCOMYCIN HCL 125 MG/2.5 ML ORAL.SUSP PO SCH ×4 (05:26→23:43)
[2016-09-08] MEDS: VANCOMYCIN 0.75 GM in IV D5W 250 ML IV SCH (05:26)
--- NOTE | 2016-09-08 06:36 | NUR ---
Patient resting.Denies pain.No further vomiting noted.Levophed drip remains at 2 mcg/min.BP still unstable.AM care done.Turned and repositioned.Adequate urine output.Flexi seal intact and patent with moderate liquid dark brown stool. Continue monitoring.Kept comfortable.
[2016-09-08] MEDS: MEROPENEM 500 MG in IV NS 0.9% 50 ML IV SCH ×3 (06:56→23:32)
[2016-09-08] MEDS: BOOST GLUCOSE CONTROL VANILLA 237 ML BOX PO SCH (08:05)
[2016-09-08] MEDS: MULTIVITAMINS,THERAGRAN 1 UDTAB TABLET PO SCH (08:05)
[2016-09-08] MEDS: MUPIROCIN OINT 2% 22 GM TUBE SCH ×2 (08:06→21:14)
[2016-09-08] MEDS: ASCORBIC ACID 500 MG TABLET PO SCH (08:06)
[2016-09-08] MEDS: HYDROGEL DRESSING 90 GM TUBE TP SCH (08:06)
[2016-09-08] MEDS: FERROUS SULFATE (325 MG) 325 MG/TAB TABLET PO SCH ×2 (08:20→16:08)
--- NOTE | 2016-09-08 08:43 | NUR ---
RETAIL PRESENTATION SPECIALIST NOTE 0720: Received patient awake, A/Ox3. With trache plugged. On room air, tolerated well. No respiratory distress noted at this time. With Ortega cath intact, noted with pale yellow with sediments urine drained to BSD. With Flexiseal intact, still noted with loose ching stool drained to BSD. No c/o any discomfort at this time. ST 100-110's on the monitor. On Levo @ 2mcg, titrated off for now for SBP 120's, will continue to monitor BP. ALBERTO PICC intact, IVF with KCl infusing as ordered. On isolation precaution for MRSA nares, CDiff and ESBL urine, maintained and observed. 0830: S/E by Dr. Mcwilliams, remained off pressor at this time. No new order at this time.
[2016-09-08] MEDS: FAMOTIDINE/PF INJ 20 MG/2 ML VIAL IV SCH (09:05)
[2016-09-08] MEDS: Potassium Chloride 40 MEQ in IV NS 0.9% 1,000 ML IV PRN (10:04)
[2016-09-08] MEDS: MIDODRINE HCL (5MG) 5 MG TABLET PO SCH ×2 (12:50→16:08)
[2016-09-08] MEDS ORDERED: NEUTRA PHOS 1 POWD.PACKET NG ONE (15:30)
--- NOTE | 2016-09-08 16:45 | NUR ---
HOME ENERGY CONSULTANT NOTE 1200: S/E by Karen DUNN, made aware patient off Levo x2 hours and had to place back on 2mcg after 2 hours x 15min for SBP 70's but SBP 110's when on Levo. Placed on Midodrine and SBP remained >90's without Levophed. With order for transfer to Tele. CN aware. 1630: Transferred to [facility] via bed and via ACLS protocol. No any significant changes during the transfer. VSS remained stable. Report given to Carmenza DEAL for RICKY. Accompanied by girlfriend. Kept clean, warm and dry. Needs attended. SBP remained >100.
[2016-09-08] MEDS: LACTOBACILLUS RHAMNOSUS GG 1 EACH CAP.SPRINK PO SCH (18:00)
[2016-09-08] MEDS: VANCOMYCIN 1 GM in IV D5W 250 ML IV SCH (18:00)
--- NOTE | 2016-09-08 19:08 | NUR ---
RN CLOSING NOTES PATIENT REMAINS STABLE THROUGHOUT THE REMAINDER OF SHIFT . ALL DUE MEDS GIVEN, NOON CARE PROVIDED. WILL ENDORSE CONTINUITY OF CARE TO PM RN
--- NOTE | 2016-09-08 19:22 | NUR ---
RN NOTE RN CONTACTED PHARMACY IN REGARDS TO THE PATIENTS. VANCOCIN ORAL DISPENSE MEDICATION IN REGARDS TO LATE ADMINISTRATION. MEDICATION TO AVAILABLE AT THIS TIME . PHARMACY CONTACTED THEY STATE THAT THEY WILL BRING THE MEDICATION SOON POSSIBLE. PM NURSE INFORMED OF THIS ISSUE
--- NOTE | 2016-09-08 20:00 | NUR ---
RN NOTES ALERT AND ORIENTED. VERBALLY RESPONSIVE TO STIMULI. DENIES ANY PAIN WHEN ASKED. PT ON TRACH, CAPPED. ON ROOM AIR. TOLERATING WELL. RIGHT UPPER ARM PICC LINE NOTED, INTACT AND PATENT WITH IVF INFUSING WELL AT 40CC/ HR. JOHNSON CATH INTACT AND DWELLING WELL. SAFETY MEASURES MAINTAINED. WILL CONTINUE TO MONITOR.
[2016-09-08] MEDS: ENOXAPARIN SODIUM 40 MG/0.4 ML DISP.SYRIN SQ SCH (21:00)
--- NOTE | 2016-09-08 22:52 | NUR ---
RN NOTES SPOKE WITH DOCTOR LOLY AND MADE AWARE THAT PT HAS POSSIBLE WOUND DEBRIDEMENT SONIA IN AM. DR. SALCIDO AGREED AND OKAYED TO HOLD LOVENOX TONIGHT. NOTED NAD CARRIED OUT.
[2016-09-09] VITALS: BP 133/85
[2016-09-09 04:00] VITALS: BP_SYST 133; BP_SYST 137; BP_DIAS 85; BP_DIAS 94
[2016-09-09] MEDS: VANCOMYCIN 1 GM in IV D5W 250 ML IV SCH ×2 (05:35→19:56)
[2016-09-09] MEDS: VANCOMYCIN HCL 125 MG/2.5 ML ORAL.SUSP PO SCH ×4 (05:35→23:55)
[2016-09-09 06:50] LABS: BASOPHILS % (AUTO) 0.2 % (0.0-2.0); EOSINOPHILS # (AUTO) 0.4 /CMM (0.0-0.7); EOSINOPHILS % (AUTO) 3.1 % (0.0-6.0); HEMATOCRIT 30 % (39-51); LYMPHOCYTES # (AUTO) 1.9 /CMM (0.8-4.8); LYMPHOCYTES % (AUTO) 15.9 % (20.0-44.0); MEAN CORPUSCULAR HEMOGLOBIN 29 PG (26.0-33.0); MEAN CORPUSCULAR HGB CONC 34 g/dl (31.0-36.0); MEAN CORPUSCULAR VOLUME 87 fL (80-96); MONOCYTES # (AUTO) 0.5 /CMM (0.1-1.30); MONOCYTES % (AUTO) 4.5 % (2.0-12.0); NEUTROPHILS # (AUTO) 9.2 /CMM (1.8-8.9); NEUTROPHILS % (AUTO) 76.3 % (43.0-81.0); PLATELET COUNT (AUTO) 309 /CMM (150-450); RDW COEFFICIENT OF VARIATION 15.1 (11.5-15.0); RED BLOOD CELL COUNT(AUTO) 3.41 MIL/uL (4.5-6.0); WHITE BLOOD COUNT (AUTO) 12.1 K/uL (4.3-11.0)
[2016-09-09] MEDS: MEROPENEM 500 MG in IV NS 0.9% 50 ML IV SCH ×3 (06:55→22:16)
[2016-09-09 07:01] LABS: CREATININE 0.9 mg/dL (0.6-1.3); MAGNESIUM 1.4 mg/dL (1.8-2.4); PHOSPHORUS 2.8 mg/dL (2.5-4.9); POTASSIUM 3.3 mmol/L (3.5-5.1)
--- NOTE | 2016-09-09 07:28 | NUR ---
RN NOTES PT REMAINS STABLE THROUGHOUT THE SHIFT. ENDORSED TO THE AM NURSE.
[2016-09-09 08:00] VITALS: BP 100/70
--- NOTE | 2016-09-09 08:00 | NUR ---
RN NOTES PT PRESENTS ALERT AND ORIENTED. VERBALLY RESPONSIVE TO STIMULI. DENIES ANY PAIN WHEN ASKED. PT ON TRACH, CAPPED. ON ROOM AIR. TOLERATING WELL. RIGHT UPPER ARM PICC LINE NOTED, INTACT AND PATENT WITH IVF INFUSING WELL AT 40CC/ HR. JOHNSON CATH INTACT AND DWELLING WELL. SAFETY MEASURES MAINTAINED. WILL CONTINUE TO MONITOR.
[2016-09-09] MEDS: FERROUS SULFATE (325 MG) 325 MG/TAB TABLET PO SCH ×2 (09:28→18:06)
[2016-09-09] MEDS: ASCORBIC ACID 500 MG TABLET PO SCH (09:28)
[2016-09-09] MEDS: FAMOTIDINE/PF INJ 20 MG/2 ML VIAL IV SCH (09:28)
[2016-09-09] MEDS: LACTOBACILLUS RHAMNOSUS GG 1 EACH CAP.SPRINK PO SCH ×2 (09:28→18:06)
[2016-09-09] MEDS: MUPIROCIN OINT 2% 22 GM TUBE SCH ×2 (09:29→22:12)
[2016-09-09] MEDS: MULTIVITAMINS,THERAGRAN 1 UDTAB TABLET PO SCH (09:40)
[2016-09-09] MEDS: HYDROGEL DRESSING 90 GM TUBE TP SCH (09:40)
--- NOTE | 2016-09-09 11:21 | NUR ---
RN NOTE MEDICATION NOT ADMINISTERED DUE TO THE MEDICATION NOT BEING AVAILABLE FOR ADMINISTRATION PHARMACY CALLED X3. STATED MEDICATION WOULD BE PROVIDED HOWEVER MEDICATION STILL HAS YET TO ARRIVE. CHARGE NURSE SOON NOTIFIED. PT B/P STABLE NO ISSUE ARISE RN WILL CONTINUE TO MONITOR
[2016-09-09] MEDS: MIDODRINE HCL (5MG) 5 MG TABLET PO SCH ×3 (11:24→18:05)
[2016-09-09 12:00] VITALS: BP 133/95
[2016-09-09] MEDS: Magnesium 1GM/D5W 100ML PREMIX 100 ML IV SCH ×4 (12:20→18:07)
[2016-09-09 16:00] VITALS: BP 130/90
--- NOTE | 2016-09-09 17:18 | NUR ---
RN NOTE PER PATIENT REQUEST PLEASE HOLD PO MEDICATION UNTIL PATIENT WAKES UP FOR DINNER . STATES PATIENT HAD DIFFICULTY SLEEPING LAST NIGHT. RN ACKNOWLEDGES REQUEST
--- NOTE | 2016-09-09 18:16 | NUR ---
RN NOTE LATE ADMINISTRATION OF ANTIBIOTICS DUE TO LAST BAG OF MAGNESIUM RUNNING CURRENTLY NO COMPLAINTS FROM PATIENT AT THIS TIME PATIENT FINISHED DINNER NO ISSUES NOTED NO COMPLAINTS ALL NEEDS ATTEND , ON ROOM AIR , GIRLFRIEND PRESENT IN THE ROOM WITH THE PATIENT AT THIS TIME. CALL LIGHT WITHIN REACH. WILL ENDORE ANY ADDITIONAL MEDICATION ADMINISTRATIONS TO THE NIGHTSHIFT RN
--- NOTE | 2016-09-09 19:21 | NUR ---
RN NOTE RN CONTACTED PHARMACY IN REGARDS TO THE PATIENT PM VANCOMYCIN SCHEDULED FOR 1800, PHARMACY STATES THAT THEY WERE WAITING TO SEND THE VANCOMYCIN PENDING TOUGH . RN NOTIFIED THEM THAT RECENT VANC TROUGH WAS 13 . PHARMACY STATES THAT THE WILL SEND THE REQUESTED ANTIBIOTIC SOON POSSIBLE
--- NOTE | 2016-09-09 19:45 | NUR ---
RN INITIAL NOTE RECEIVED PT IN NO ACUTE DISTRESS IN BED. PT IS A/O X 3 AND ABLE TO MAKE NEEDS KNOWN. PT IS ON RA AND TOLERATING WELL WITH O2 SAT @ 98%. PT IS ON TELE WITH SR-ST ON THE MONITOR. PT HAS F/C THAT IS CLEAN DRY INTACT AND PATENT WITH CLEAR YELLOW URINE DRAINING. PT HAS FLEX SEAL THAT IS CLEAN DRY INTACT. PT HAS ALBERTO MIDLINE THAT IS CLEAN DRY INTACT AND PATENT WITH NS @ 40KCL @ 40ML/HR. BED IN LOW LOCK POSITION WITH RIALS UP X 2. CALL LIGHT WITHIN REACH AND ALL SAFETY MEASURES ENSURED AND CARRIED OUT. WILL CONTINUE TO MONITOR FOR ANY CHANGES IN CONDITION.
--- NOTE | 2016-09-09 19:56 | NUR ---
RN NOTE DELAY IN VANCOMYCIN [id number] DUE TO DRUG NOT BEING AVAILABLE ANTIBIOTIC CURRENTLY HANGING AT THIS TIME PATIENT STABLE NO ISSUE PRESENT REPORT GIVEN TO PM NURSE. PM NURSE ACKNOWLEDGES DELAY IN DRUG ADMINISTRATION. NIGHTSHIFT RN WILL CONTINUE TO FOLLOW
[2016-09-09 20:00] VITALS: BP 97/59
[2016-09-09] MEDS: ENOXAPARIN SODIUM 40 MG/0.4 ML DISP.SYRIN SQ SCH (22:12)
[2016-09-10] VITALS: BP 92/57
[2016-09-10 04:00] VITALS: BP 100/73
[2016-09-10] MEDS: VANCOMYCIN 1 GM in IV D5W 250 ML IV SCH ×2 (05:31→18:03)
[2016-09-10] MEDS: VANCOMYCIN HCL 125 MG/2.5 ML ORAL.SUSP PO SCH ×3 (05:32→18:03)
[2016-09-10] MEDS: MEROPENEM 500 MG in IV NS 0.9% 50 ML IV SCH ×3 (06:36→22:32)
--- NOTE | 2016-09-10 06:40 | NUR ---
RN CLOSING NOTE PT REMAINS IN NO ACUTE DISTRESS IN BED. PT DID NOT HAVE ANY SIGNIFICANT CHANGE IN CONDITION DURING SHIFT. ALL NEEDS MET, ALL ORDERS CARRIED OUT. WILL ENDORSE REPORT TO AM RN FOR CONTINUITY OF CARE.
[2016-09-10 07:12] LABS: BASOPHILS % (AUTO) 0.2 % (0.0-2.0); EOSINOPHILS # (AUTO) 0.5 /CMM (0.0-0.7); EOSINOPHILS % (AUTO) 4.5 % (0.0-6.0); HEMATOCRIT 28 % (39-51); HEMOGLOBIN 9.4 g/dL (13.5-17.5); LYMPHOCYTES # (AUTO) 1.7 /CMM (0.8-4.8); LYMPHOCYTES % (AUTO) 14.8 % (20.0-44.0); MEAN CORPUSCULAR HEMOGLOBIN 29 PG (26.0-33.0); MEAN CORPUSCULAR HGB CONC 33 g/dl (31.0-36.0); MEAN CORPUSCULAR VOLUME 87 fL (80-96); MONOCYTES # (AUTO) 0.5 /CMM (0.1-1.30); MONOCYTES % (AUTO) 4.6 % (2.0-12.0); NEUTROPHILS # (AUTO) 8.8 /CMM (1.8-8.9); NEUTROPHILS % (AUTO) 75.9 % (43.0-81.0); PLATELET COUNT (AUTO) 334 /CMM (150-450); RDW COEFFICIENT OF VARIATION 15.5 (11.5-15.0); RED BLOOD CELL COUNT(AUTO) 3.26 MIL/uL (4.5-6.0); WHITE BLOOD COUNT (AUTO) 11.6 K/uL (4.3-11.0)
--- NOTE | 2016-09-10 07:15 | NUR ---
RN INITIAL NOTE PATIENT RECEIVED IN BED. PT EASILY AROUSED, ABLE TO MAKE NEEDS KNOWN. NO S/S OF PAIN OR DISCOMFORT. RESPIRATIONS ARE EVEN AND UNLABORED. NO S/S OF RESPIRATORY DISTRESS OR SOB. SATING WELL ON ROOM AIR. RIGHT UPPER ARM MIDLINE FLUSHED, PATENT. JOHNSON CATHETER AND FLEX SEAL DRAINING TO GRAVITY. SKIN IS WARM AND DRY TO TOUCH. SAFETY PRECAUTIONS IMPLEMENTED, BED IN LOCKED, LOW POSITION. CALL LIGHT WITHIN EASY REACH. WILL MONITOR CLOSELY.
[2016-09-10 07:44] LABS: CREATININE 0.9 mg/dL (0.6-1.3); MAGNESIUM 1.7 mg/dL (1.8-2.4)
[2016-09-10 08:00] VITALS: BP 126/86
[2016-09-10] MEDS: ASCORBIC ACID 500 MG TABLET PO SCH (08:18)
[2016-09-10] MEDS: LACTOBACILLUS RHAMNOSUS GG 1 EACH CAP.SPRINK PO SCH ×2 (08:18→18:03)
[2016-09-10] MEDS: FERROUS SULFATE (325 MG) 325 MG/TAB TABLET PO SCH ×2 (08:19→18:03)
[2016-09-10] MEDS: MUPIROCIN OINT 2% 22 GM TUBE SCH ×2 (08:19→22:32)
[2016-09-10] MEDS: HYDROGEL DRESSING 90 GM TUBE TP SCH (08:19)
[2016-09-10] MEDS: FAMOTIDINE/PF INJ 20 MG/2 ML VIAL IV SCH (08:19)
[2016-09-10] MEDS: MIDODRINE HCL (5MG) 5 MG TABLET PO SCH ×3 (08:20→17:00)
[2016-09-10] MEDS: MULTIVITAMINS,THERAGRAN 1 UDTAB TABLET PO SCH (08:25)
[2016-09-10 09:07] LABS: POTASSIUM 2.6 mmol/L (3.5-5.1)
[2016-09-10] MEDS: Potassium Chloride 40 MEQ in IV NS 0.9% 1,000 ML IV PRN (09:33)
[2016-09-10] MEDS: Magnesium 1GM/D5W 100ML PREMIX 100 ML IV SCH ×2 (11:46→12:26)
[2016-09-10 12:00] VITALS: BP 153/90
[2016-09-10] MEDS: POTASSIUM CL. PREMIX PERIPHER. 50 ML IV SCH ×4 (12:59→16:27)
[2016-09-10 16:00] VITALS: BP 119/72
[2016-09-10] MEDS ORDERED: FEE PK DOSING 1 MIN EA MC ONE (19:00)
[2016-09-10 20:00] VITALS: BP_SYST 103; BP_DIAS 65; BP_DIAS 66
[2016-09-10] MEDS: ENOXAPARIN SODIUM 40 MG/0.4 ML DISP.SYRIN SQ SCH (22:30)
[2016-09-10] MEDS: VANCOMYCIN 0.75 GM in IV D5W 250 ML IV SCH (22:30)
[2016-09-11] VITALS: BP_SYST 115; BP_DIAS 70; BP_DIAS 71
[2016-09-11] MEDS: VANCOMYCIN HCL 125 MG/2.5 ML ORAL.SUSP PO SCH ×4 (00:21→18:29)
[2016-09-11 04:00] VITALS: BP_SYST 97; BP_SYST 99; BP_DIAS 65
[2016-09-11 05:49] LABS: BASOPHILS # (AUTO) 0.2 /CMM (0.0-0.2); BASOPHILS % (AUTO) 0.9 % (0.0-2.0); EOSINOPHILS # (AUTO) 0.6 /CMM (0.0-0.7); EOSINOPHILS % (AUTO) 3.3 % (0.0-6.0); HEMATOCRIT 29 % (39-51); HEMOGLOBIN 9.7 g/dL (13.5-17.5); LYMPHOCYTES # (AUTO) 2.1 /CMM (0.8-4.8); LYMPHOCYTES % (AUTO) 11.7 % (20.0-44.0); MEAN CORPUSCULAR HEMOGLOBIN 30 PG (26.0-33.0); MEAN CORPUSCULAR HGB CONC 34 g/dl (31.0-36.0); MEAN CORPUSCULAR VOLUME 87 fL (80-96); MONOCYTES # (AUTO) 0.1 /CMM (0.1-1.30); MONOCYTES % (AUTO) 0.7 % (2.0-12.0); NEUTROPHILS # (AUTO) 14.8 /CMM (1.8-8.9); NEUTROPHILS % (AUTO) 83.4 % (43.0-81.0); PLATELET COUNT (AUTO) 388 /CMM (150-450); RDW COEFFICIENT OF VARIATION 14.9 (11.5-15.0); WHITE BLOOD COUNT (AUTO) 17.8 K/uL (4.3-11.0)
[2016-09-11] MEDS: VANCOMYCIN 0.75 GM in IV D5W 250 ML IV SCH ×2 (06:00→12:12)
[2016-09-11 06:03] LABS: CALCIUM, SERUM 8.3 mg/dL (8.5-10.1); CREATININE 0.9 mg/dL (0.6-1.3); MAGNESIUM 1.8 mg/dL (1.8-2.4); PHOSPHORUS 3.2 mg/dL (2.5-4.9); POTASSIUM 2.9 mmol/L (3.5-5.1)
--- NOTE | 2016-09-11 07:10 | NUR ---
DIRECTOR OF REVENUE CYCLE MANAGEMENT INITIAL NOTES: REC'D PT ASLEEP ON BED, EASILY AROUSABLE, NOT IN ANY DISTRESS. ON ROOM AIR, NO SOB. ON TELEMONITOR, HAS ALBERTO PICC LINE PATENT & INTACT W/ NS 1L + 40 MEQS KCL X 40 CC/HR INFUSING WELL. HAS PATENT & INTACT FC & FLEXISEAL (LEVEL 400ML). PROVIDED COMFORT MEASURES. CALL LIGHT W/IN REACH. BED KEPT LOW & IN LOCKED POS. ISOLATION PREC OBSERVED. WILL CONTINUE TO MONITOR.
[2016-09-11 08:00] VITALS: BP 93/60
[2016-09-11] MEDS: MEROPENEM 500 MG in IV NS 0.9% 50 ML IV SCH (08:17)
[2016-09-11] MEDS: ASCORBIC ACID 500 MG TABLET PO SCH (08:26)
[2016-09-11] MEDS: LACTOBACILLUS RHAMNOSUS GG 1 EACH CAP.SPRINK PO SCH ×2 (08:26→16:27)
[2016-09-11] MEDS: FERROUS SULFATE (325 MG) 325 MG/TAB TABLET PO SCH ×2 (08:26→16:27)
[2016-09-11] MEDS: FAMOTIDINE/PF INJ 20 MG/2 ML VIAL IV SCH (08:26)
[2016-09-11] MEDS: MIDODRINE HCL (5MG) 5 MG TABLET PO SCH ×3 (08:27→16:27)
[2016-09-11] MEDS: HYDROGEL DRESSING 90 GM TUBE TP SCH (08:28)
[2016-09-11] MEDS: Z GUARD REMEDY 2 OZ OINT TP PRN (08:28)
[2016-09-11] MEDS: MUPIROCIN OINT 2% 22 GM TUBE SCH ×2 (08:37→20:55)
[2016-09-11 12:00] VITALS: BP 123/83
[2016-09-11] MEDS: POTASSIUM CHLORIDE 20 MEQ TAB.PRT.SR PO SCH ×3 (12:11→15:42)
[2016-09-11] MEDS: MULTIVITAMINS,THERAGRAN 1 UDTAB TABLET PO SCH (12:13)
--- NOTE | 2016-09-11 13:35 | NUR ---
RN NOTES: AFSHIN DUNN MADE AWARE OF WBC 17.8.
[2016-09-11] MEDS ORDERED: MEROPENEM 1 G in IV NS 0.9% 100 ML IV SCH (15:00)
[2016-09-11 16:00] VITALS: BP 109/82
[2016-09-11] MEDS ORDERED: POTASSIUM CHLORIDE 20 MEQ TAB.PRT.SR PO SCH (16:00)
--- NOTE | 2016-09-11 18:20 | NUR ---
RN NOTES: PT SEEN AND EXAMINED BY SHAUN PEPE. INFORMED HER ABOUT PT C/O ITCHINESS AND RASHES ON HIS BODY W/ NO NEW ORDERS.
[2016-09-11] MEDS: Potassium Chloride 40 MEQ in IV NS 0.9% 1,000 ML IV PRN (18:29)
[2016-09-11] MEDS ORDERED: FEE PK DOSING 1 MIN EA MC ONE (19:06)
--- NOTE | 2016-09-11 19:09 | NUR ---
MEDICARE CONTACT SPECIALIST CLOSING NOTES: NO ACUTE CHANGES NOTED W/IN SHIFT. ALBERTO PICC LINE KEPT PATENT & INTACT W/ NS 1L + 40 MEQS KCL X 40 CC/HR INFUSING WELL. FC & FLEXISEAL KEPT HAS PATENT & INTACT. KEPT WELL RESTED. NEEDS ATTENDED. CALL LIGHT W/IN REACH. BED KEPT LOW & IN LOCKED POS. ISOLATION PREC OBSERVED. ENDORSED TO PM RN FOR RICKY.
[2016-09-11 20:00] VITALS: BP 119/81
[2016-09-11] MEDS: GENTAMICIN 500 MG in IV D5W 100 ML IV SCH (20:53)
[2016-09-11] MEDS: METRONIDAZOLE 500 MG TABLET PO SCH (20:53)
[2016-09-11] MEDS: ENOXAPARIN SODIUM 40 MG/0.4 ML DISP.SYRIN SQ SCH (20:56)
[2016-09-12] VITALS: BP 108/73
[2016-09-12] MEDS: VANCOMYCIN HCL 125 MG/2.5 ML ORAL.SUSP PO SCH ×4 (00:13→17:51)
[2016-09-12] MEDS: ZOLPIDEM TARTRATE 5 MG TABLET PO PRN (01:03)
[2016-09-12 04:00] VITALS: BP 97/65
[2016-09-12] MEDS: METRONIDAZOLE 500 MG TABLET PO SCH ×3 (05:59→21:01)
[2016-09-12 06:30] LABS: CALCIUM, SERUM 8.1 mg/dL (8.5-10.1); CREATININE 0.9 mg/dL (0.6-1.3); MAGNESIUM 1.6 mg/dL (1.8-2.4); PHOSPHORUS 2.9 mg/dL (2.5-4.9); POTASSIUM 3.4 mmol/L (3.5-5.1)
[2016-09-12 06:41] LABS: BASOPHILS % (AUTO) 0.1 % (0.0-2.0); EOSINOPHILS # (AUTO) 0.8 /CMM (0.0-0.7); EOSINOPHILS % (AUTO) 4.5 % (0.0-6.0); HEMATOCRIT 29 % (39-51); HEMOGLOBIN 9.9 g/dL (13.5-17.5); LYMPHOCYTES # (AUTO) 2.5 /CMM (0.8-4.8); MEAN CORPUSCULAR HEMOGLOBIN 29 PG (26.0-33.0); MEAN CORPUSCULAR HGB CONC 34 g/dl (31.0-36.0); MEAN CORPUSCULAR VOLUME 86 fL (80-96); MONOCYTES # (AUTO) 0.5 /CMM (0.1-1.30); MONOCYTES % (AUTO) 2.8 % (2.0-12.0); NEUTROPHILS # (AUTO) 13.2 /CMM (1.8-8.9); NEUTROPHILS % (AUTO) 77.6 % (43.0-81.0); PLATELET COUNT (AUTO) 483 /CMM (150-450); RDW COEFFICIENT OF VARIATION 15.6 (11.5-15.0); RED BLOOD CELL COUNT(AUTO) 3.39 MIL/uL (4.5-6.0)
--- NOTE | 2016-09-12 06:49 | NUR ---
SAY NOTES 0600 CONDITION UNCHANGED. NO SIGNS OF DISTRESS. REMAINS ON ROOM AIR. NEEDS ATTENDED. CALL LIGHT WITHIN REACH. Addendum: 09/12/16 at 0653 by FRANCIS VALENZUELA RN REMAINS ON FLEXISEAL AND JOHNSON CATH
--- NOTE | 2016-09-12 07:10 | NUR ---
SUPERINTENDENT PRODUCTION INITIAL NOTES: REC'D PT AWAKE ON BED, NOT IN ANY DISTRESS. ON ROOM AIR, NO SOB. TRACH CLOSED. ON TELEMONITOR, SR. HAS ALBERTO PICC LINE PATENT & INTACT W/ NS 1L + 40 MEQS KCL X 40 CC/HR INFUSING WELL. HAS PATENT & INTACT FC & FLEXISEAL (LEVEL 360 ML). PROVIDED COMFORT MEASURES. CALL LIGHT W/IN REACH. BED KEPT LOW & IN LOCKED POS. ISOLATION PREC OBSERVED. WILL CONTINUE TO MONITOR.
[2016-09-12 07:20] LABS: GENTAMICIN,TROUGH 4.2 ug/ml (0.2-2.0)
[2016-09-12 08:00] VITALS: BP 106/74
[2016-09-12] MEDS: FAMOTIDINE/PF INJ 20 MG/2 ML VIAL IV SCH (08:33)
[2016-09-12] MEDS: ASCORBIC ACID 500 MG TABLET PO SCH (08:33)
[2016-09-12] MEDS: MULTIVITAMINS,THERAGRAN 1 UDTAB TABLET PO SCH (08:33)
[2016-09-12] MEDS: FERROUS SULFATE (325 MG) 325 MG/TAB TABLET PO SCH ×2 (08:33→17:51)
[2016-09-12] MEDS: LACTOBACILLUS RHAMNOSUS GG 1 EACH CAP.SPRINK PO SCH ×2 (08:33→17:51)
[2016-09-12] MEDS: MIDODRINE HCL (5MG) 5 MG TABLET PO SCH ×3 (08:34→17:52)
[2016-09-12] MEDS: HYDROGEL DRESSING 90 GM TUBE TP SCH (08:34)
[2016-09-12] MEDS: Z GUARD REMEDY 2 OZ OINT TP PRN (08:34)
[2016-09-12] MEDS: MUPIROCIN OINT 2% 22 GM TUBE SCH ×2 (08:35→21:03)
[2016-09-12] MEDS: Magnesium 1GM/D5W 100ML PREMIX 100 ML IV SCH ×2 (11:56→13:12)
[2016-09-12 12:00] VITALS: BP 110/75
[2016-09-12 16:00] VITALS: BP 97/66
--- NOTE | 2016-09-12 19:11 | NUR ---
BIG DATA SOLUTIONS ARCHITECT CLOSING NOTES: NO ACUTE CHANGES NOTED W/IN SHIFT. ALBERTO PICC LINE KEPT PATENT & INTACT W/ NS 1L + 40 MEQS KCL X 40 CC/HR INFUSING WELL. FC & FLEXISEAL (LEVEL 440) KEPT PATENT & INTACT. KEPT WELL RESTED. NEEDS ATTENDED. CALL LIGHT W/IN REACH. BED KEPT LOW & IN LOCKED POS. ISOLATION PREC OBSERVED. ENDORSED TO PM RN FOR RICKY.
--- NOTE | 2016-09-12 19:35 | NUR ---
RECYCLING OPERATOR NOTE RECEIVED PT IN BED AWAKE. A/O X 3, NO SOB, NO DISTRESS OR DISCOMFORT NOTED. DENIES PAIN. IVF NS WITH 40 MEQ KCL INFUSING AT 40 ML/HR, NO S/S OF INFILTRATION NOTED ALBERTO MIDLINE. ON TELE SR HR 83 WITH OCCASIONAL PVC. F/C INTACT AND PATENT DRAINING YELLOWISH COLOR URINE AND ALSO FLEX SEAL INTACT AND PATENT DRAINING SOFT SEMI LIQUID STOOL. REPOSITION HIM FOR SKIN MANAGEMENT. DRESSING ON SACRUM I/D/C. SIDE RAILS UP X 2 AND CALL LIGHT WITHIN REACH. VSS. CONTINUE TO MONITOR HIM.
--- NOTE | 2016-09-12 19:36 | NUR ---
BOLT THREADER NOTE PT HAS TRACH PORTEX 8 WHICH IS CAPED.
[2016-09-12 20:00] VITALS: BP 133/85
[2016-09-12] MEDS: ENOXAPARIN SODIUM 40 MG/0.4 ML DISP.SYRIN SQ SCH (21:02)
[2016-09-12] MEDS: GENTAMICIN 500 MG in IV D5W 100 ML IV SCH (21:03)
[2016-09-12] MEDS: Potassium Chloride 40 MEQ in IV NS 0.9% 1,000 ML IV PRN (21:03)
[2016-09-13] VITALS (7 sets, daily range): BP systolic 72–119; BP diastolic 39–76
[2016-09-13] MEDS: VANCOMYCIN HCL 125 MG/2.5 ML ORAL.SUSP PO SCH ×4 (00:18→17:16)
[2016-09-13] MEDS: ZOLPIDEM TARTRATE 5 MG TABLET PO PRN (01:05)
[2016-09-13] MEDS: METRONIDAZOLE 500 MG TABLET PO SCH ×3 (06:10→21:59)
--- NOTE | 2016-09-13 06:41 | NUR ---
MANAGER MINING NOTE NO CHANGE IN CONDITION. PT ASLEEP, AROUSABLE. NO DISTRESS OR DISCOMFORT NOTED. DENIES PAIN. IVF INFUSING WELL. ON TELE SR. SIDE RAILS UP X 2 AND CALL LIGHT WITHIN REACH. WILL ENDORSE TO DAY SHIFT NURSE FOR CONTINUE TO CARE.
[2016-09-13 06:55] LABS: BASOPHILS % (AUTO) 0.3 % (0.0-2.0); EOSINOPHILS # (AUTO) 0.8 /CMM (0.0-0.7); EOSINOPHILS % (AUTO) 6.9 % (0.0-6.0); HEMATOCRIT 27 % (39-51); HEMOGLOBIN 9.3 g/dL (13.5-17.5); LYMPHOCYTES # (AUTO) 2.3 /CMM (0.8-4.8); LYMPHOCYTES % (AUTO) 18.9 % (20.0-44.0); MEAN CORPUSCULAR HEMOGLOBIN 29 PG (26.0-33.0); MEAN CORPUSCULAR HGB CONC 34 g/dl (31.0-36.0); MEAN CORPUSCULAR VOLUME 87 fL (80-96); MONOCYTES # (AUTO) 0.4 /CMM (0.1-1.30); MONOCYTES % (AUTO) 3.4 % (2.0-12.0); NEUTROPHILS # (AUTO) 8.5 /CMM (1.8-8.9); NEUTROPHILS % (AUTO) 70.5 % (43.0-81.0); PLATELET COUNT (AUTO) 448 /CMM (150-450); RDW COEFFICIENT OF VARIATION 15.5 (11.5-15.0); RED BLOOD CELL COUNT(AUTO) 3.16 MIL/uL (4.5-6.0); WHITE BLOOD COUNT (AUTO) 12.1 K/uL (4.3-11.0)
[2016-09-13 07:14] LABS: CALCIUM, SERUM 8.1 mg/dL (8.5-10.1); PHOSPHORUS 3.8 mg/dL (2.5-4.9); POTASSIUM 3.4 mmol/L (3.5-5.1)
[2016-09-13] MEDS: MULTIVITAMINS,THERAGRAN 1 UDTAB TABLET PO SCH (09:22)
[2016-09-13] MEDS: ASCORBIC ACID 500 MG TABLET PO SCH (09:22)
[2016-09-13] MEDS: LACTOBACILLUS RHAMNOSUS GG 1 EACH CAP.SPRINK PO SCH ×2 (09:22→17:16)
[2016-09-13] MEDS: FERROUS SULFATE (325 MG) 325 MG/TAB TABLET PO SCH ×2 (09:22→17:16)
[2016-09-13] MEDS: FAMOTIDINE/PF INJ 20 MG/2 ML VIAL IV SCH (09:23)
[2016-09-13] MEDS: MIDODRINE HCL (5MG) 5 MG TABLET PO SCH ×3 (09:24→17:16)
[2016-09-13] MEDS: HYDROGEL DRESSING 90 GM TUBE TP SCH (09:24)
[2016-09-13] MEDS: MUPIROCIN OINT 2% 22 GM TUBE SCH ×2 (09:24→21:59)
[2016-09-13] MEDS ORDERED: ERTA1VIA IJ (17:04)
[2016-09-13] MEDS ORDERED: PERMETHRIN 5% CRM 60 GM TUBE TP ONE (18:30)
--- NOTE | 2016-09-13 19:20 | NUR ---
RN INITIAL NOTES RECEIVED PATIENT IN BED, AWAKE AND ALERT, PATIENT DENIES ANY PAIN AND DISCOMFORT. FAMILY AT BEDSIDE. PATIENT FOR DISCHARGE TODAY ENDORSED, PATIENT AND FAMILY REFUSING DISCHARGE. CN MADE AWARE. PATIENT IS SR ON TELE WITH HR OF 95. PATIENT WITH TRACH, C/D/I, MIDLINE, CAPPED. WITH ALBERTO PICC LINE, FLUSHED AND PATENT, IVF ORDERED. F/C INTACT WITH CLEAR AND YELLOW URINE. FLEXISEAL INTACT, LIQUID STOOL DRAINING. PATIENT ON ISOLATION PRECAUTION, CLOSELY OBSERVED. PATIENT'S NEEDS ANTICIPATED AND MET. SAFETY AND COMFORT ENSURED. BED IN LOW AND LOCKED POSITION. CALL LIGHT IN REACH. WILL MONITOR.
--- NOTE | 2016-09-13 20:00 | NUR ---
rn SPOKE TO PT AND FAMILY, PT REFUSING TO BE D/C TO [facility], PER PATIENT AND FAMILY ITS OK TO BE DISCHARGED TO ANY OTHER FACILITY. SPOKE TO PAVITHRA, COOK TORTILLA, AWARE, WILL RESOLVE TOMORROW, PAGEAlvarado DAS AND LEFT MESSAGE
[2016-09-13] MEDS: Potassium Chloride 40 MEQ in IV NS 0.9% 1,000 ML IV PRN (21:58)
[2016-09-13] MEDS: GENTAMICIN 500 MG in IV D5W 100 ML IV SCH (21:58)
[2016-09-13] MEDS: ENOXAPARIN SODIUM 40 MG/0.4 ML DISP.SYRIN SQ SCH (22:07)
[2016-09-14] VITALS: BP 90/60
[2016-09-14] MEDS: VANCOMYCIN HCL 125 MG/2.5 ML ORAL.SUSP PO SCH ×4 (00:24→17:38)
[2016-09-14 04:00] VITALS: BP 79/48
[2016-09-14] MEDS: METRONIDAZOLE 500 MG TABLET PO SCH ×2 (05:55→12:11)
--- NOTE | 2016-09-14 06:36 | NUR ---
RN CLOSING NOTES PATIENT WITH NO ACUTE CHANGE IN CONDITION OBSERVED OVERNIGHT. REMAINS SR ON TELE. PATIENT'S FAMILY AT BEDSIDE. PATIENT'S NEEDS ANTICIPATED AND MET. SAFETY AND COMFORT ENSURED. BED IN LOW AND LOCKED POSITION. ALL DUE MEDS GIVEN ORDERED. F/C REMAINS INTACT, DRAINING VIA GRAVITY. FLEXISEAL IN PLACE, STILL WITH LIQUID STOOL. IVF ORDERED ON ALBERTO PICC LINE. STRICT ISOLATION PRECAUTIONS OBSERVED AT ALL TIMES. ELIMITE CREAM APPLIED ORDERED AND ENDORSED, WILL ENDORSE ACCORDINGLY TO AM SHIFT FOR SHOWER AND FOR CONTINUITY OF CARE.
[2016-09-14 08:00] VITALS: BP 92/52
--- NOTE | 2016-09-14 08:00 | NUR ---
TELE1/RN AM SHIFT INITIAL NOTES RECEIVED PT AWAKE SITTING IN BED WITH SIGNIFICANT OTHER AT BEDSIDE. NO ACUTE CHANGE OF CONDITION NOTED. PT A/O X 3, TRACHED BUT CAPPED, ABLE TO VERBALIZED NEEDS, DENIES ANY PAIN OR COMPLAINT. ON ROOM AIR SATURATING @ 98%, LUNG SOUNDS CLEAR. ON TELE WITH SINUS RHYTHM, HR 93. WITH ON GOING IV INFUSION OF KCLOR 40MEQ @ 40CC/HR, PICC LING PATENT WITH POSITIVE BLOOD RETURN, FLUSHED, NO S/S OF INFECTION. JOHNSON CATHETER INTACT WITH YELLOW URINE OUTPUT AND RECTAL TUBE IN PLACED NOTED WITH LIQUID BROWN FECAL OUTPUT. PT IS COMFORTABLE AT THIS TIME. SCHEDULED AM MEDS TO BE GIVEN. CL WITHIN REACHED, SAFETY MAINTAINED AND ISOLATION OBSERVED. ON GOING MONITORING.
[2016-09-14] MEDS: MUPIROCIN OINT 2% 22 GM TUBE SCH (08:23)
[2016-09-14] MEDS: FAMOTIDINE/PF INJ 20 MG/2 ML VIAL IV SCH (08:24)
[2016-09-14] MEDS: MULTIVITAMINS,THERAGRAN 1 UDTAB TABLET PO SCH (08:24)
[2016-09-14] MEDS: ASCORBIC ACID 500 MG TABLET PO SCH (08:24)
[2016-09-14] MEDS: FERROUS SULFATE (325 MG) 325 MG/TAB TABLET PO SCH ×2 (08:26→16:46)
[2016-09-14] MEDS: MIDODRINE HCL (5MG) 5 MG TABLET PO SCH ×3 (08:26→16:48)
[2016-09-14] MEDS: HYDROGEL DRESSING 90 GM TUBE TP SCH (08:26)
[2016-09-14] MEDS: LACTOBACILLUS RHAMNOSUS GG 1 EACH CAP.SPRINK PO SCH ×2 (08:27→16:46)
[2016-09-14 12:00] VITALS: BP 99/63
--- NOTE | 2016-09-14 12:30 | NUR ---
TELE1/RN ROUNDS - EULALIO, SHAUN PT SEEN & EXAMINED BY EULALIO DUNN. NO NEW ORDERS RECEIVED AT THIS TIME. NO CHANGE OF CONDITION. MONITORING CONTINUED.
[2016-09-14 16:00] VITALS: BP 110/71
[2016-09-14 16:48] VITALS: BP 110/71
--- NOTE | 2016-09-14 18:07 | NUR ---
TELE1/RN REPORT - [facility] REPORT GIVEN TO VIRGIE FARMER RN, FACILITY REQUESTING TO KEEP PICC LINE, JOHNSON CATHETER AND RECTAL TUBE. AWAITING FOR [employer]. MONITORING CONTINUED.
--- NOTE | 2016-09-14 19:04 | NUR ---
TELE1/WOMEN'S SWIM COACH - [facility] REPORT GIVEN TO TRANSPORT PERSONNEL, DISCHARGE DOCUMENTS GIVEN TO TRANSPORT PERSONNEL. DISCHARGE INSTRUCTIONS GIVEN TO PT, VERBALIZED UNDERSTANDING, NO PERSONAL BELONGINGS, INVENTORY LOG SIGNED OFF. JOHNSON CATHETER, RECTAL TUBE AND PICC LINE KEPT INTACT PER SNF REQUEST. IB BANDS REMOVED. PT LEFT UNIT IN STABLE CONDITION VIA GURNEY ACCOMPANIED BY (2) TRANSPORT PERSONNEL AND PT'S SIGNIFICANT OTHER.
== END 2016-09-14 19:07 | DRG 720 ==
LOC: ER 01:02 → ICUOV 03:30 → ICU 03:36 → TELE1 09-08 16:33
PROVIDERS: ADMIT Nurse Practitioner Acute Care; ATTEND Nurse Practitioner Acute Care
PROC: B548ZZA Ultrasonography of Superior Vena Cava, Guidance (ICD-10-PCS; 2016-09-05)
PROC: 02HV33Z Insertion of Infusion Device into Superior Vena Cava, Percutaneous Approach (ICD-10-PCS; 2016-09-05)
PROC: 30233N1 Transfusion of Nonautologous Red Blood Cells into Peripheral Vein, Percutaneous Approach (ICD-10-PCS; 2016-09-07)
PROC: 0JB70ZZ Excision of Back Subcutaneous Tissue and Fascia, Open Approach (ICD-10-PCS; principal; 2016-09-10)
DX: A41.9 Sepsis, unspecified organism (principal); N17.0 Acute kidney failure with tubular necrosis; I21.4 Non-ST elevation (NSTEMI) myocardial infarction; R65.21 Severe sepsis with septic shock; G93.41 Metabolic encephalopathy; E43 Unspecified severe protein-calorie malnutrition; L89.154 Pressure ulcer of sacral region, stage 4; J15.6 Pneumonia due to other Gram-negative bacteria; J96.10 Chronic respiratory failure, unspecified whether with hypoxia or hypercapnia; A04.7 Enterocolitis due to Clostridium difficile; J15.9 Unspecified bacterial pneumonia; Z93.0 Tracheostomy status; B96.20 Unspecified Escherichia coli [E. coli] as the cause of diseases classified elsewhere; D50.9 Iron deficiency anemia, unspecified; K21.9 Gastro-esophageal reflux disease without esophagitis; Z16.12 Extended spectrum beta lactamase (ESBL) resistance; Z79.899 Other long term (current) drug therapy; Z87.891 Personal history of nicotine dependence; D64.9 Anemia, unspecified; K62.89 Other specified diseases of anus and rectum; F19.10 Other psychoactive substance abuse, uncomplicated; Z74.01 Bed confinement status; N39.0 Urinary tract infection, site not specified; R13.10 Dysphagia, unspecified; N18.9 Chronic kidney disease, unspecified; J44.0 Chronic obstructive pulmonary disease with (acute) lower respiratory infection; E78.5 Hyperlipidemia, unspecified; E83.42 Hypomagnesemia; D68.59 Other primary thrombophilia; E87.6 Hypokalemia; G82.20 Paraplegia, unspecified; Z22.322 Carrier or suspected carrier of Methicillin resistant Staphylococcus aureus; D63.8 Anemia in other chronic diseases classified elsewhere; L89.890 Pressure ulcer of other site, unstageable; H54.42 Blindness, left eye, normal vision right eye; E83.51 Hypocalcemia; I12.9 Hypertensive chronic kidney disease with stage 1 through stage 4 chronic kidney disease, or unspecified chronic kidney disease; K59.00 Constipation, unspecified; N31.9 Neuromuscular dysfunction of bladder, unspecified
CPT/HCPCS: 36415; 36569; 36600; 70450-TC; 71010-TC; 72128-TC; 80048-TC; 80053-TC; 80061-TC; 80076-TC; 80170-TC; 80202-TC; 81000-TC; 82728-TC; 83540-TC; 83605-TC; 83735-TC; 83880; 84100-TC; 84443-TC; 84484-TC; 85025-TC; 85730-TC; 86850-TC; 86921-TC; 87040-TC; 87070-TC; 87081-TC; 87086-TC; 87186-TC; 87400; 93307-TC; A4216; A4606; A4624; A6248; A6253; A6402; A6403; C1751; J0696; J1580; J1644; J1650; J2185; J2405; J2543; J3370; J3475; J3480; J3490; J7030; J7040; J7050; J7060; P9016-BL; Z7610

== ENCOUNTER 2016-12-18 17:11 | Inpatient (IN) | payer MEDICAID ==
[2016-12-18] VITALS (12 sets, daily range): BP systolic 63–142; BP diastolic 31–97
[~2016-12-18] VITALS: Ht 172.7 cm; Wt 84.8 kg
[~2016-12-18 17:11] MED LIST changes: +ERTA1VIA IJ; -LEVO500T15 PO
--- NOTE | 2016-12-18 17:17 | NUR ---
Pt CELINA SUMMERS from SNF, reports pt has blood in bass bag. Pt states that the bag got yanked while SNF staff was bathing him. Hx parapeligia, pt reports no pain. Holden blood noted in bass system. Pt denies CP, SOB, dizziness, n/v, no other complaints, no distress noted.
[2016-12-18] MEDS ORDERED: ACETAMINOPHEN ES 500 MG TABLET PO ONE ×2 (17:30)
[2016-12-18] MEDS ORDERED: IV NS 0.9% 1,000 ML BAG IV ONE (17:30)
[2016-12-18] MEDS ORDERED: VANCOMYCIN 1 GM in IV D5W 250 ML IV ONE (17:30)
[2016-12-18] MEDS ORDERED: PIPERACILLIN /TAZOBACTAM 3.375 G in IV D5W 50 ML IV ONE (17:30)
[2016-12-18] MEDS ORDERED: PIPERACILLIN /TAZOBACTAM 3.375 G VIAL IV ONE ×2 (17:48→23:34)
[2016-12-18] MEDS ORDERED: ACETAMINOPHEN ES 500 MG TABLET ONE (17:48)
[2016-12-18] MEDS ORDERED: VANCOMYCIN 1 GM VIAL ONE (17:48)
[2016-12-18] MEDS ORDERED: MULT1TAB11 PO (17:51)
[2016-12-18] MEDS ORDERED: DEXL30CA3 PO (17:51)
[2016-12-18] MEDS ORDERED: NA P133E RC (17:51)
[2016-12-18] MEDS ORDERED: GABA-534 PO (17:51)
[2016-12-18] MEDS ORDERED: BISA10SU8 RC (17:51)
[2016-12-18] MEDS ORDERED: ACID1TAB12 PO (17:51)
[2016-12-18 17:52] LABS: BASOPHILS % (AUTO) 3.2 % (0.0-2.0); EOSINOPHILS # (AUTO) 0.1 /CMM (0.0-0.7); EOSINOPHILS % (AUTO) 5.8 % (0.0-6.0); HEMATOCRIT 37 % (39-51); HEMOGLOBIN 12.4 g/dL (13.5-17.5); LYMPHOCYTES # (AUTO) 0.5 /CMM (0.8-4.8); MEAN CORPUSCULAR HEMOGLOBIN 29 PG (26.0-33.0); MEAN CORPUSCULAR HGB CONC 34 g/dl (31.0-36.0); MEAN CORPUSCULAR VOLUME 87 fL (80-96); MONOCYTES % (AUTO) 0.4 % (2.0-12.0); NEUTROPHILS # (AUTO) 0.8 /CMM (1.8-8.9); NEUTROPHILS % (AUTO) 54.6 % (43.0-81.0); PLATELET COUNT (AUTO) 251 /CMM (150-450); RDW COEFFICIENT OF VARIATION 13.8 (11.5-15.0); RED BLOOD CELL COUNT(AUTO) 4.26 MIL/uL (4.5-6.0)
[2016-12-18 17:54] LABS: WHITE BLOOD COUNT (AUTO) 1.5 K/uL (4.3-11.0)
[2016-12-18 17:57] LABS: PROTHROMBIN TIME 10.4 SECS (9.5-12.7)
[2016-12-18 17:59] LABS: ALANINE AMINOTRANSFERASE 16 U/L (12-78); ALBUMIN 3.3 g/dL (3.4-5.0); ALKALINE PHOSPHATASE 142 U/L (46-116); ASPARTATE AMINOTRANSFERASE 20 U/L (15-37); BILIRUBIN,DIRECT 0.1 mg/dL (0.0-0.2); BILIRUBIN,TOTAL 0.4 mg/dL (0.2-1.0); CALCIUM, SERUM 8.7 mg/dL (8.5-10.1); CARBON DIOXIDE 31 mmol/L (21-32); CHLORIDE 103 mmol/L (98-107); CREATININE 1.5 mg/dL (0.6-1.3); GLUCOSE 89 mg/dL (74-106); SODIUM SERUM 145 mmol/L (136-145); TOTAL PROTEIN, SERUM 8.1 g/dL (6.4-8.2); UREA NITROGEN, BLOOD 23 mg/dL (7-18)
[2016-12-18 18:01] LABS: POTASSIUM 2.6 mmol/L (3.5-5.1); TROPONIN I 0.065 ng/mL (0.00-0.056)
[2016-12-18 18:18] LABS: APPEARANCE,URINE Cloudy (CLEAR); BILIRUBIN,URINE LARGE (NEGATIVE); BLOOD, URINE Large Ery/uL (NEGATIVE); COLOR,URINE Red (YELLOW); KETONES,URINE 15 (NEGATIVE); LEUKOCYTE ESTERASE ,URINE Large (NEGATIVE); NITRITE, URINE Negative (NEGATIVE); PH,URINE 8.5 (5.0-8.0); PROTEIN,URINE >=300 mg/dl (NEGATIVE); UGLUCOSE Negative (NEGATIVE)
[2016-12-18 18:23] LABS: BACTERIA,URINE Few /HPF (None Seen); RBC,URINE TOO NUMEROUS TO COUN /HPF (0-2); SQUAMOUS EPITHELIAL CELL,UR Rare /HPF (None Seen)
[2016-12-18 18:24] LABS: BAND % (MANUAL) 2 % (0.0-5.0); BASOPHILS % (MANUAL) 2 % (0.0-2.0); EOSINOPHILS % (MANUAL) 4 % (0-4); LYMPHOCYTES % (MANUAL) 35 % (16-48); MONOCYTES % (MANUAL) 5 % (0-11.0); NEUTROPHILS % (MANUAL) 52 (42-76)
--- NOTE | 2016-12-18 18:46 | NUR ---
Pt vomited and deficated. Cleaned pt and linens.
--- NOTE | 2016-12-18 19:10 | NUR ---
Pt became hypotensive. Placed in [place], started 2nd IV left FA. Pressure bag placed on NS for more rapid infusion. aware.
[2016-12-18] MEDS ORDERED: NOREPINEPHRINE 4 MG/4 ML AMPUL IV ONE ×2 (19:34→23:34)
--- NOTE | 2016-12-18 19:40 | NUR ---
CALLED NURSING SUP. FOR ICU BED
--- NOTE | 2016-12-18 19:45 | NUR ---
ASHLY PAGED, DIGITAL SERVICE ENGINEER
--- NOTE | 2016-12-18 19:45 | NUR ---
DR CRONIN AT BEDSIDE FOR CENTRAL LINE PLACEMENT.
--- NOTE | 2016-12-18 19:50 | NUR ---
STARTED ON THE LEVOPHED DRIP AT 2MCG/MIN TO THE RIGHT SUBCLAVIAN CENTRAL LINE FOR BP 58/32 , WILL TITRATE PER PROTOCOL, CLOSE CARDIAC AND VS MONITORING. PATIENT IS RESPONSIVE, VERBAL AND TACTILE STIMULI.
[2016-12-18] MEDS ORDERED: Medication Not On Formulary EA (Melatonin 3 MG) PO PRN (20:30)
[2016-12-18] MEDS ORDERED: ZOLPIDEM TARTRATE 5 MG TABLET PO PRN (20:30)
[2016-12-18] MEDS ORDERED: SUMATRIPTAN SUCCINATE 25 MG TABLET PO PRN (20:30)
[2016-12-18] MEDS ORDERED: MAGNESIUM HYDROXIDE 30 ML UDC PO PRN (20:30)
[2016-12-18] MEDS ORDERED: BISACODYL SUPP (10 MG) 10 MG/SUPP.RECT SUPP.RECT RC PRN (20:30)
[2016-12-18] MEDS ORDERED: ONDANSETRON HCL/PF 4 MG/2 ML VIAL IVP PRN (20:30)
[2016-12-18] MEDS ORDERED: NOREPINEPHRINE 8 MG in IV D5W 500 ML IV PRN (21:00)
--- NOTE | 2016-12-18 21:00 | NUR ---
BRANCH OFFICE ADMINISTRATOR INITIAL NOTE RECEIVED REPORT FROM EDGARDO COWAN RN. PT BEING ADMITTED TO ICU FOR SEVERE SEPSIS. PT ARRIVED TO ICU VIA STRETCHER WITH RN AND EMT. PT IS A/A/O X4. ON 4L NC. LUNG SOUNDS CRACKLES. BOWEL SOUNDS PRESENT. JOHNSON INTACT AND DRAINING BLOODY URINE. RECTAL TEMP 101.7, COOLING MEASURES INITIATED. SACRAL WOUND, PICTURE TAKEN AND DRESSING APPLIED. PULSES PRESENT. IV PATENT AND INTACT. BED IN LOW LOCKED POSITION. CALL LIGHT WITHIN REACH. WILL CONTINUE TO MONITOR.
--- NOTE | 2016-12-18 21:01 | NUR ---
TRANSPORTED PT VIA STRETCHER PER ACLS PROTOCOL TO ICU 256, NAD NOTED. SAY ELLIS AT BEDSIDE.
[2016-12-18] MEDS ORDERED: CHLORHEXIDINE GLUCONATE 15 ML UDC MM ONE (21:17)
[2016-12-18] MEDS ORDERED: GABAPENTIN 300 MG CAPSULE ONE (21:18)
[2016-12-18] MEDS ORDERED: DOCUSATE SODIUM 100 MG CAPSULE PO ONE (21:18)
[2016-12-18] MEDS ORDERED: MIDODRINE HCL (5MG) 5 MG TABLET ONE (21:19)
[2016-12-18] MEDS: IV NS 0.9% 1,000 ML IV SCH (21:25)
[2016-12-18] MEDS: DOCUSATE SODIUM 100 MG CAPSULE PO SCH (21:25)
[2016-12-18] MEDS: GABAPENTIN 300 MG CAPSULE PO SCH (21:25)
[2016-12-18] MEDS: CHLORHEXIDINE GLUCONATE 15 ML UDC MM SCH (21:25)
[2016-12-18] MEDS: MIDODRINE HCL (5MG) 5 MG TABLET PO SCH (21:27)
[2016-12-18] MEDS ORDERED: POTASSIUM CHLORIDE 10 MEQ TABLET.SA PO ONE (21:30)
[2016-12-18] MEDS ORDERED: POTASSIUM CHLORIDE 10 MEQ TABLET.SA ONE (21:30)
[2016-12-18 22:10] LABS: ALBUMIN 2.6 g/dL (3.4-5.0); BILIRUBIN,DIRECT 0.7 mg/dL (0.0-0.2); BILIRUBIN,TOTAL 1.2 mg/dL (0.2-1.0); TOTAL PROTEIN, SERUM 6.4 g/dL (6.4-8.2)
[2016-12-18] MEDS ORDERED: HYDROCODONE/APAP 5/325MG 1 EACH TABLET ONE (22:43)
[2016-12-18] MEDS: HYDROCODONE/APAP 5/325MG 1 EACH TABLET PO PRN (22:44)
[2016-12-18] MEDS ORDERED: ACETAMINOPHEN 325 MG TABLET ONE (23:35)
[2016-12-18] MEDS: ACETAMINOPHEN 325 MG TABLET PO PRN ×2 (23:36→23:45)
[2016-12-18] MEDS: PIPERACILLIN /TAZOBACTAM 3.375 G in IV D5W 50 ML IV SCH (23:45)
[2016-12-19] VITALS (112 sets, daily range): BP systolic 58–143; BP diastolic 27–81
[2016-12-19] MEDS: NOREPINEPHRINE 16 MG in IV D5W 500 ML IV PRN ×4 (01:20→20:27)
[2016-12-19] MEDS ORDERED: POTASSIUM CHLORIDE 10 MEQ TABLET.SA ONE (01:24)
[2016-12-19] MEDS ORDERED: POTASSIUM CHLORIDE 10 MEQ TABLET.SA PO SCH (01:30)
--- NOTE | 2016-12-19 02:00 | NUR ---
DESIGN TECHNOLOGY PROFESSOR PT REMAINS WITH LOW URINE OUTPUT. JOHNSON HAS BEEN IRRIGATED AND URINE OUTPUT IS MINIMAL. PT IS ON IVF NS @ 125 ML/HR. BP LOW IN 80'S MAXED ON LEVOPHED. WILL CONTINUE TO MONITOR.
--- NOTE | 2016-12-19 02:30 | NUR ---
MEDICAL ACCOUNTANT CALLED DR LOPEZ TO REPORT LOW URINE OUTPUT. DR LOPEZ REQUESTED FOR JOHNSON TO BE CHANGED DUE TO UTI. ONCE JOHNSON WAS RE INSERTED, 550 CC HEMATURIA OUTPUT WAS NOTED. WILL DOCUMENT. BP IS 105/51
[2016-12-19] MEDS ORDERED: GABAPENTIN 300 MG CAPSULE ONE (04:19)
[2016-12-19] MEDS ORDERED: PIPERACILLIN /TAZOBACTAM 3.375 G VIAL IV ONE (04:19)
[2016-12-19] MEDS ORDERED: MIDODRINE HCL (5MG) 5 MG TABLET ONE (04:20)
--- NOTE | 2016-12-19 04:30 | NUR ---
DIRECTOR OF RELIGIOUS ACTIVITIES PT IN BED RESTING AND EASILY AROUSABLE. PT IS A/A/O X4. LUNG SOUNDS CRACKLES. BOWEL SOUNDS PRESENT. JOHNSON DRAINING HEMATURIA. BED IN LOW LOCKED POSITION. CALL LIGHT WITHIN REACH. WILL CONTINUE TO MONITOR.
[2016-12-19 04:41] LABS: HEMATOCRIT 31 % (39-51); HEMOGLOBIN 10.6 g/dL (13.5-17.5); LYMPHOCYTES # (AUTO) 0.3 /CMM (0.8-4.8); MEAN CORPUSCULAR HEMOGLOBIN 30 PG (26.0-33.0); MEAN CORPUSCULAR HGB CONC 34 g/dl (31.0-36.0); MEAN CORPUSCULAR VOLUME 87 fL (80-96); MONOCYTES # (AUTO) 0.1 /CMM (0.1-1.30); MONOCYTES % (AUTO) 0.3 % (2.0-12.0); NEUTROPHILS # (AUTO) 24.5 /CMM (1.8-8.9); NEUTROPHILS % (AUTO) 98.7 % (43.0-81.0); PLATELET COUNT (AUTO) 201 /CMM (150-450); RDW COEFFICIENT OF VARIATION 14.1 (11.5-15.0); RED BLOOD CELL COUNT(AUTO) 3.54 MIL/uL (4.5-6.0); WHITE BLOOD COUNT (AUTO) 24.8 K/uL (4.3-11.0)
[2016-12-19] MEDS: IV NS 0.9% 1,000 ML IV SCH ×3 (04:41→15:50)
[2016-12-19 04:59] LABS: CALCIUM, SERUM 7.5 mg/dL (8.5-10.1); CREATININE 2.2 mg/dL (0.6-1.3); MAGNESIUM 1.7 mg/dL (1.8-2.4); PHOSPHORUS 1.3 mg/dL (2.5-4.9)
[2016-12-19] MEDS: MIDODRINE HCL (5MG) 5 MG TABLET PO SCH ×3 (05:01→20:31)
[2016-12-19] MEDS: GABAPENTIN 300 MG CAPSULE PO SCH ×3 (05:02→20:31)
[2016-12-19] MEDS: PIPERACILLIN /TAZOBACTAM 3.375 G in IV D5W 50 ML IV SCH ×4 (05:02→23:13)
[2016-12-19 05:03] LABS: POTASSIUM 1.8 mmol/L (3.5-5.1)
[2016-12-19 05:23] LABS: BAND % (MANUAL) 13 % (0.0-5.0); LYMPHOCYTES % (MANUAL) 3 % (16-48); MONOCYTES % (MANUAL) 4 % (0-11.0); NEUTROPHILS % (MANUAL) 80 (42-76)
--- NOTE | 2016-12-19 05:45 | NUR ---
BUSINESS CENTER MANAGER SPOKE WITH DR LOPEZ REGARDING CRITICAL LABS. DUE TO CHANGES IN LABS. REQUESTING A RE DRAW, PERIPHERAL DRAW FOR ALL MORNING LABS. WILL NOTIFY LAB .
[2016-12-19] MEDS ORDERED: PHENYLEPHRINE 20 MG in IV D5W 250 ML IV PRN (07:00)
[2016-12-19 07:36] LABS: HEMATOCRIT 30 % (39-51); HEMOGLOBIN 10.5 g/dL (13.5-17.5); LYMPHOCYTES # (AUTO) 0.4 /CMM (0.8-4.8); LYMPHOCYTES % (AUTO) 1.4 % (20.0-44.0); MEAN CORPUSCULAR HEMOGLOBIN 30 PG (26.0-33.0); MEAN CORPUSCULAR HGB CONC 35 g/dl (31.0-36.0); MEAN CORPUSCULAR VOLUME 86 fL (80-96); MONOCYTES # (AUTO) 0.8 /CMM (0.1-1.30); MONOCYTES % (AUTO) 2.8 % (2.0-12.0); NEUTROPHILS # (AUTO) 27.4 /CMM (1.8-8.9); NEUTROPHILS % (AUTO) 95.8 % (43.0-81.0); PLATELET COUNT (AUTO) 203 /CMM (150-450); RDW COEFFICIENT OF VARIATION 14.3 (11.5-15.0); RED BLOOD CELL COUNT(AUTO) 3.49 MIL/uL (4.5-6.0); WHITE BLOOD COUNT (AUTO) 28.6 K/uL (4.3-11.0)
--- NOTE | 2016-12-19 08:00 | NUR ---
PT AOX4, LEVO IN PROGRESS AT 40 MICS. PT JUAN DANIEL FEELING DIZZY OR LIGHTHEADED, DENIES SOB AND CHEST PAIN.
[2016-12-19 08:01] LABS: ALBUMIN 2.3 g/dL (3.4-5.0); CALCIUM, SERUM 7.9 mg/dL (8.5-10.1); CREATININE 2.4 mg/dL (0.6-1.3); MAGNESIUM 1.7 mg/dL (1.8-2.4); PHOSPHORUS 1.4 mg/dL (2.5-4.9); TOTAL PROTEIN, SERUM 6.2 g/dL (6.4-8.2)
[2016-12-19 08:12] LABS: POTASSIUM 1.7 mmol/L (3.5-5.1)
[2016-12-19] MEDS ORDERED: FEE PK DOSING 1 MIN EA MC ONE (08:16)
[2016-12-19] MEDS ORDERED: POTASSIUM PHOSPHATE MM 15 MMOL in IV D5W 250 ML IV SCH (08:30)
[2016-12-19] MEDS ORDERED: ACETAMINOPHEN ES 500 MG TABLET PO PRN (08:30)
[2016-12-19 08:41] LABS: TROPONIN I 3.657 ng/mL (0.00-0.056)
[2016-12-19] MEDS: POTASSIUM CL. PREMIX PERIPHER. 50 ML IV SCH ×13 (08:46→20:58)
[2016-12-19] MEDS: HYDROCORTISONE SOD SUCCINATE 100 MG/2 ML VIAL IV SCH ×3 (08:46→17:11)
[2016-12-19] MEDS: CHLORHEXIDINE GLUCONATE 15 ML UDC MM SCH ×2 (08:46→20:30)
[2016-12-19] MEDS: Magnesium 1GM/D5W 100ML PREMIX 100 ML IV SCH ×2 (08:46→09:59)
[2016-12-19] MEDS: ASCORBIC ACID 500 MG TABLET PO SCH (08:47)
[2016-12-19] MEDS: FERROUS SULFATE (325 MG) 325 MG/TAB TABLET PO SCH ×3 (08:47→17:12)
[2016-12-19] MEDS: ACIDOPHILUS/BULGARICUS 1 EACH TAB.CHEW PO SCH ×3 (08:47→17:11)
[2016-12-19] MEDS: MULTIVITAMINS,THERAGRAN 1 UDTAB TABLET PO SCH (08:47)
[2016-12-19] MEDS: FINASTERIDE (5 MG) 5 MG TABLET PO SCH (08:47)
[2016-12-19] MEDS: HEPARIN SODIUM, PORCINE 5000 UNITS/1 ML VIAL SQ SCH ×2 (08:48→20:32)
[2016-12-19] MEDS: TRAMADOL HCL 50 MG TABLET PO SCH ×3 (08:52→17:12)
[2016-12-19] MEDS ORDERED: Medication Not On Formulary EA (Dexlansoprazole (Dexilant) 30 MG) PO SCH (09:00)
[2016-12-19 09:09] LABS: THYROID STIMULATING HORMONE 0.385 uIU/mL (0.358-3.74)
--- NOTE | 2016-12-19 09:30 | NUR ---
DR CALDERA IS HERE TO SEE PT. LABS DISCUSSED WITH REPLACE ELECTROLYTES. IVF INCREASED TO 250 ML/H.
[2016-12-19] MEDS: POTASSIUM PHOSPHATE MM 7.5 MMOL in IV D5W 100 ML IV SCH ×2 (11:00→14:13)
[2016-12-19] MEDS: HYDROCODONE/APAP 5/325MG 1 EACH TABLET PO PRN ×2 (11:20→20:30)
[2016-12-19] MEDS ORDERED: PANTOPRAZOLE 40 MG TABLET.DR PO ONE (11:30)
[2016-12-19 12:00] LABS: BAND % (MANUAL) 22 % (0.0-5.0); EOSINOPHILS % (MANUAL) 0 % (0-4); LYMPHOCYTES % (MANUAL) 1 % (16-48); METAMYELOCYTES % 2 % (0-0); MONOCYTES % (MANUAL) 1 % (0-11.0); MYELOCYTES % 2 % (0-0); NEUTROPHILS % (MANUAL) 72 (42-76)
--- NOTE | 2016-12-19 12:00 | NUR ---
ABD CT ORDERS CLARIFIED. WILL CHANGE TO CT ABD. AND PELVIC WO CONTRAST. PT NPO SINCE 8 AM
--- NOTE | 2016-12-19 14:00 | NUR ---
HEMATURIA SUBSIDED, OCCASIONAL BLOOD CLOTS STILL PRESENT.
[2016-12-19] MEDS ORDERED: IV NS 0.9% 1,000 ML IV SCH (16:00)
--- NOTE | 2016-12-19 16:00 | NUR ---
FULL BED BATH AND SKIN CARE. TLC DRESSING CHANGED.
[2016-12-19 16:19] LABS: CALCIUM, SERUM 7.9 mg/dL (8.5-10.1); CREATININE 2.3 mg/dL (0.6-1.3)
[2016-12-19 16:20] LABS: POTASSIUM 2.4 mmol/L (3.5-5.1)
[2016-12-19] MEDS ORDERED: PHENYLEPHRINE 80 MG in IV NS 0.9% 250 ML IV PRN (16:30)
--- NOTE | 2016-12-19 17:00 | NUR ---
K IS 2.6, LACTIC ACID 4.1 MYRON NOTIFIED WILL REPEAT AT 2400
[2016-12-19] MEDS: ACETAMINOPHEN 325 MG TABLET PO PRN (17:12)
--- NOTE | 2016-12-19 17:30 | NUR ---
PT TO CT, TOLERATED PROCEDURE WELL.
[2016-12-19] MEDS ORDERED: VANCOMYCIN 1 GM in IV D5W 250 ML IV SCH (18:00)
--- NOTE | 2016-12-19 19:30 | NUR ---
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 PT IN BED. A/A/O X4. LUNG SOUNDS CRACKLES. BOWEL SOUNDS HYPOACTIVE. JOHNSON INTACT AND DRAINING CLEAR YELLOW URINE. IV PATENT AND INTACT. PULSES PRESENT. BED IN LOW LOCKED POSITION. CALL LIGHT WITHIN REACH. WILL CONTINUE TO MONITOR.
[2016-12-19] MEDS: IV NS 0.9% 1,000 ML IV PRN (20:26)
[2016-12-19] MEDS: DOCUSATE SODIUM 100 MG CAPSULE PO SCH (21:56)
[2016-12-19 22:22] LABS: RETICULOCYTE COUNT 3.1 % (0.6-2.5)
[2016-12-19 22:47] LABS: THYROID STIMULATING HORMONE 0.449 uIU/mL (0.358-3.74); URIC ACID 8.3 mg/dL (2.6-7.2)
[2016-12-20] VITALS (86 sets, daily range): BP systolic 86–145; BP diastolic 26–104
[2016-12-20] MEDS: IV NS 0.9% 1,000 ML IV PRN ×2 (00:39→05:13)
[2016-12-20 00:40] LABS: CALCIUM, SERUM 8.1 mg/dL (8.5-10.1); CARBON DIOXIDE 21 mmol/L (21-32); CHLORIDE 108 mmol/L (98-107); CREATININE 2.1 mg/dL (0.6-1.3); GLUCOSE 219 mg/dL (74-106); SODIUM SERUM 145 mmol/L (136-145); UREA NITROGEN, BLOOD 32 mg/dL (7-18)
[2016-12-20 00:52] LABS: POTASSIUM 2.3 mmol/L (3.5-5.1)
--- NOTE | 2016-12-20 01:00 | NUR ---
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 K 2.3, LACTIC ACID 3.9. CALLED ANDONIAN. ORDERS RECEIVED FOR 6 BAGS OF POTASSIUM IV. AND ADD MAG AND PHOS TO PREVIOUSLY DRAWN BLOOD. WILL CARRY OUT ORDERS. PT REMAINS A/A/O X4.
[2016-12-20] MEDS ORDERED: POTASSIUM CL. PREMIX PERIPHER. 50 ML ONE (01:08)
[2016-12-20] MEDS ORDERED: POTASSIUM CHLORIDE 10 MEQ TABLET.SA ONE (01:09)
[2016-12-20] MEDS ORDERED: POTASSIUM CL. PREMIX PERIPHER. 250 ML ONE (01:11)
[2016-12-20] MEDS: POTASSIUM CL. PREMIX PERIPHER. 50 ML IV SCH ×6 (01:13→06:14)
[2016-12-20 01:21] LABS: MAGNESIUM 2.4 mg/dL (1.8-2.4); PHOSPHORUS 2.6 mg/dL (2.5-4.9)
--- NOTE | 2016-12-20 04:00 | NUR ---
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 EASILY AROUSABLE. RIGHT TLC DRESSING CHANGED, SITE IS BLEEDING. PT TOLERATED WELL. POTASSIUM REMAINS TRANSFUSING. WILL CONTINUE TO MONITOR.
[2016-12-20 04:22] LABS: BASOPHILS % (AUTO) 0.2 % (0.0-2.0); HEMATOCRIT 31 % (39-51); HEMOGLOBIN 10.4 g/dL (13.5-17.5); LYMPHOCYTES # (AUTO) 0.8 /CMM (0.8-4.8); LYMPHOCYTES % (AUTO) 2.6 % (20.0-44.0); MEAN CORPUSCULAR HEMOGLOBIN 29 PG (26.0-33.0); MEAN CORPUSCULAR HGB CONC 34 g/dl (31.0-36.0); MEAN CORPUSCULAR VOLUME 87 fL (80-96); MONOCYTES # (AUTO) 1.1 /CMM (0.1-1.30); MONOCYTES % (AUTO) 3.4 % (2.0-12.0); NEUTROPHILS # (AUTO) 30.6 /CMM (1.8-8.9); NEUTROPHILS % (AUTO) 93.8 % (43.0-81.0); PLATELET COUNT (AUTO) 164 /CMM (150-450); RDW COEFFICIENT OF VARIATION 14.5 (11.5-15.0); RED BLOOD CELL COUNT(AUTO) 3.53 MIL/uL (4.5-6.0)
[2016-12-20 04:34] LABS: ALBUMIN 2.4 g/dL (3.4-5.0); BILIRUBIN,TOTAL 0.5 mg/dL (0.2-1.0); CALCIUM, SERUM 8.2 mg/dL (8.5-10.1); CREATININE 1.9 mg/dL (0.6-1.3); MAGNESIUM 2.6 mg/dL (1.8-2.4); PHOSPHORUS 2.5 mg/dL (2.5-4.9); TOTAL PROTEIN, SERUM 6.8 g/dL (6.4-8.2)
[2016-12-20 04:43] LABS: WHITE BLOOD COUNT (AUTO) 32.6 K/uL (4.3-11.0)
[2016-12-20 04:52] LABS: POTASSIUM 2.3 mmol/L (3.5-5.1)
[2016-12-20 04:53] LABS: TROPONIN I 1.377 ng/mL (0.00-0.056)
[2016-12-20] MEDS: PIPERACILLIN /TAZOBACTAM 3.375 G in IV D5W 50 ML IV SCH ×3 (05:13→17:33)
[2016-12-20] MEDS: MIDODRINE HCL (5MG) 5 MG TABLET PO SCH ×3 (05:14→21:09)
[2016-12-20] MEDS: NOREPINEPHRINE 16 MG in IV D5W 500 ML IV PRN ×2 (05:14→16:19)
[2016-12-20] MEDS: GABAPENTIN 300 MG CAPSULE PO SCH ×3 (05:14→21:09)
[2016-12-20 05:15] LABS: BAND % (MANUAL) 17 % (0.0-5.0); LYMPHOCYTES % (MANUAL) 2 % (16-48); MONOCYTES % (MANUAL) 2 % (0-11.0); NEUTROPHILS % (MANUAL) 79 (42-76)
[2016-12-20] MEDS: HYDROCODONE/APAP 5/325MG 1 EACH TABLET PO PRN ×3 (05:51→21:10)
--- NOTE | 2016-12-20 07:05 | NUR ---
RN INITIAL NOTES RECEIVED PT AWAKE, A/OX4. ON 02 AT 4LPM VIA NC. NO RESPIRATORY DISTRESS NOTED. NO SOB NOTED. DENIES ANY PAIN AT THIS TIME. IV LINES IN PLACE. RIGHT SUBCLAVIAN TLC IN PLACE. IVF: NS AT 250ML/HR INFUSING. ON LEVO AT 20MCG/MIN. WILL MONITOR BP, WILL TITRATE ACCORDINGLY. FC IN PLACE. NO HEMATURIA NOTED. BLE ELEVATED. PT COMFORTABLE. CALL LIGHT WITHIN REACH. WILL MONITOR.
[2016-12-20] MEDS ORDERED: Potassium Chloride 20 MEQ in IV NS 0.9% 1,000 ML IV PRN (08:00)
[2016-12-20 08:03] LABS: CALCIUM, SERUM 7.8 mg/dL (8.5-10.1); CREATININE 1.8 mg/dL (0.6-1.3)
[2016-12-20 08:05] LABS: POTASSIUM 2.4 mmol/L (3.5-5.1)
[2016-12-20] MEDS: ASCORBIC ACID 500 MG TABLET PO SCH (08:20)
[2016-12-20] MEDS: TRAMADOL HCL 50 MG TABLET PO SCH ×3 (08:20→16:19)
[2016-12-20] MEDS: CHLORHEXIDINE GLUCONATE 15 ML UDC MM SCH ×2 (08:20→21:09)
[2016-12-20] MEDS: MULTIVITAMINS,THERAGRAN 1 UDTAB TABLET PO SCH (08:20)
[2016-12-20] MEDS: FINASTERIDE (5 MG) 5 MG TABLET PO SCH (08:20)
[2016-12-20] MEDS: PANTOPRAZOLE 40 MG TABLET.DR PO SCH (08:20)
[2016-12-20] MEDS: FERROUS SULFATE (325 MG) 325 MG/TAB TABLET PO SCH ×3 (08:20→16:18)
[2016-12-20] MEDS: ACIDOPHILUS/BULGARICUS 1 EACH TAB.CHEW PO SCH ×3 (08:20→16:18)
[2016-12-20] MEDS: HYDROCORTISONE SOD SUCCINATE 100 MG/2 ML VIAL IV SCH ×3 (08:20→16:18)
[2016-12-20 08:30] LABS: ALBUMIN 2.3 g/dL (3.4-5.0); BILIRUBIN,DIRECT 0.2 mg/dL (0.0-0.2); BILIRUBIN,TOTAL 0.5 mg/dL (0.2-1.0); TOTAL PROTEIN, SERUM 6.5 g/dL (6.4-8.2)
[2016-12-20] MEDS: METRONIDAZOLE 500MG/ NS 100ML 500 MG in PREMIX 1 EA IV SCH ×3 (08:49→23:28)
--- NOTE | 2016-12-20 10:00 | NUR ---
RN NOTES SEEN AND EXAMINED BY DR. CALDERA. PT REMAINS ON LEVO AT 20MCG/MIN. MD AWARE OF CURRENT LAB VALUES AND CXR RESULT. WBC 32.6. AFEBRILE. ON IV ATBS. TROPONIN 1.377, TRENDING DOWN. POTASSIUM 2.4. GIVEN TOTAL OF 120MEQ YESTERDAY AND 60MEQ LAST NIGHT. ON UIVF. MD ORDERED NS+ KCL 20MEQ AT 250ML/HR. NOTED AND CARRIED OUT. WILL MONITOR.
--- NOTE | 2016-12-20 10:40 | NUR ---
RN NOTES SEEN AND EXAMINED BY DR. DANIEL. PT TOLERATED 02 AT 4LPM VIA NC. NO RESPIRATORY DISTRESS NOTED. NO SOB NOTED. DENIES ANY PAIN. MD AWARE OF CURRENT LAB VALUES AND CXR RESULT. ORDERED BLS CX. WILL MONITOR.
[2016-12-20] MEDS: POTASSIUM CHLORIDE 20 MEQ TAB.PRT.SR PO SCH ×5 (11:20→15:06)
--- NOTE | 2016-12-20 11:55 | NUR ---
RN NOTES SEEN AND EXAMINED BY MYRON ELIZABETH NP. AWARE OF LAB VALUES: WBC 32.6, HGB 10.4, HCT 31, PLATELET 164. SODIUM 147, POTASSIUM 2.4, CHLORIDE 112, BUN 31, CREA 1.8. ON NS +KCL 20MEQ AT 250ML/HR. LINE PRODUCER DC IVF AND ORDERED KCL 20MEQ X5 DOSES. ALSO AWARE OF CXR RESULT. NO BOWEL MOVEMENT NOTED SINCE ADMISSION. NO ORDERED LACTULOSE AND RESTARTED PT'S DIET ORDER. NOTED AND CARRIED OUT. PT AWARE.
[2016-12-20] MEDS: LACTULOSE 10 G/15 ML UDC (PYXIS) PO PRN (12:19)
[2016-12-20 12:58] LABS: CREATININE, URINE 27.8 MG/DL (30.0-125.0)
--- NOTE | 2016-12-20 13:00 | NUR ---
RN NOTES SEEN AND EXAMINED BY DR. OLIVARES. AWARE OF PT'S CURRENT STATUS, MEDS AND LAB VALUES. NO ORDER MADE AT THIS TIME.
[2016-12-20] MEDS ORDERED: VANCOMYCIN 1 GM in IV D5W 250 ML IV SCH (16:00)
[2016-12-20 16:24] LABS: CALCIUM, SERUM 7.9 mg/dL (8.5-10.1); CREATININE 1.6 mg/dL (0.6-1.3)
[2016-12-20 16:57] LABS: POTASSIUM 2.8 mmol/L (3.5-5.1)
--- NOTE | 2016-12-20 17:00 | NUR ---
RN NOTES CALLED MYRON ELIZABETH NP REGARDING RPT BMP RESULT. POTASSIUM 2.8 FROM 2.4. PT GIVEN KCL 20MEQ X 5 DOSES PO. NO DIARRHEA NOTED. LACTIC ACID 2.7. FINANCIAL INTERN ORDERED IVF: NS+KCL 20MEQ AT 150ML/HR AND RPT BMP AT MIDNIGHT. PT AWARE.
--- NOTE | 2016-12-20 17:15 | NUR ---
RN NOTES RECEIVE A CALL FROM [employer]. PT POSITIVE FOR MRSA NARES. MYRON ELIZABETH NP NOTIFIED AND ORDERED CONTACT ISOLATION AND BACTROBAN. NOTED AND CARRIED OUT.
[2016-12-20] MEDS ORDERED: VANCOMYCIN 0.75 GM in IV D5W 250 ML IV SCH (18:00)
[2016-12-20] MEDS: Potassium Chloride 20 MEQ in IV NS 0.9% 1,000 ML IV PRN (18:06)
--- NOTE | 2016-12-20 18:53 | NUR ---
RN CLOSING NOTES PT REMAINS STABLE. NO SIGNIFICANT CHANGE NOTED. ON 02 AT 4LPM VIA NC. NO RESPIRATORY DISTRESS NOTED. NO SOB NOTED. DENIES ANY PAIN. RIGHT SUBCLAVIAN TLC IN PLACE. TOLERATING IVF WELL. FC IN PLACE. ADEQUATE OUTPUT NOTED. NO HEMATURIA NOTED. BLE ELEVATED. TX PROVIDED. ON KCI. PT COMFORTABLE. CALL LIGHT WITHIN REACH. WILL ENDORSE TO CONTINUITY OF CARE.
--- NOTE | 2016-12-20 20:30 | NUR ---
received pt from day shift, alert, follows commands, paraplegic, SR, receiving levo at 6mcg, on 4L 02 sat well, tolerates diet, f/c good output, lactulose given, pt had not had BM since admission, abdomen distended, KUB ordered, debridement consent singed, v/s stable, no pain, pt turned and repositioned.
[2016-12-20] MEDS: CEFTRIAXONE 1 G in IV D5W 50 ML IV SCH (21:08)
[2016-12-20] MEDS: MUPIROCIN OINT 2% 22 GM TUBE SCH (21:09)
[2016-12-20] MEDS: DOCUSATE SODIUM 100 MG CAPSULE PO SCH (21:10)
[2016-12-20] MEDS: VANCOMYCIN HCL 125 MG/2.5 ML ORAL.SUSP PO SCH (21:13)
[2016-12-21] VITALS (84 sets, daily range): BP systolic 85–149; BP diastolic 49–96
[2016-12-21 00:44] LABS: CALCIUM, SERUM 7.8 mg/dL (8.5-10.1); CREATININE 1.4 mg/dL (0.6-1.3); POTASSIUM 3.2 mmol/L (3.5-5.1)
--- NOTE | 2016-12-21 01:02 | NUR ---
pt is resting in the bed, on levo at 6mcg, v/s stable, no pain, pt turned and repositioned q2hrs.
[2016-12-21] MEDS: Potassium Chloride 20 MEQ in IV NS 0.9% 1,000 ML IV PRN ×3 (03:16→16:45)
[2016-12-21] MEDS: GABAPENTIN 300 MG CAPSULE PO SCH ×3 (04:35→20:28)
[2016-12-21] MEDS: MIDODRINE HCL (5MG) 5 MG TABLET PO SCH ×3 (04:37→20:34)
[2016-12-21 04:44] LABS: HEMATOCRIT 28 % (39-51); HEMOGLOBIN 9.6 g/dL (13.5-17.5); LYMPHOCYTES # (AUTO) 0.8 /CMM (0.8-4.8); LYMPHOCYTES % (AUTO) 2.5 % (20.0-44.0); MEAN CORPUSCULAR HEMOGLOBIN 30 PG (26.0-33.0); MEAN CORPUSCULAR HGB CONC 35 g/dl (31.0-36.0); MEAN CORPUSCULAR VOLUME 87 fL (80-96); MONOCYTES # (AUTO) 0.6 /CMM (0.1-1.30); MONOCYTES % (AUTO) 1.8 % (2.0-12.0); NEUTROPHILS # (AUTO) 29.7 /CMM (1.8-8.9); NEUTROPHILS % (AUTO) 95.7 % (43.0-81.0); PLATELET COUNT (AUTO) 105 /CMM (150-450); RDW COEFFICIENT OF VARIATION 14.9 (11.5-15.0); RED BLOOD CELL COUNT(AUTO) 3.22 MIL/uL (4.5-6.0)
--- NOTE | 2016-12-21 04:48 | NUR ---
pt is resting in the bed, no acute distress overnight, SR, levo at 6mcg, one BM, good urine output, stool for Cdiff sent, v/s stable, no pain, pt cleaned, changed and repositioned q2hrs.
[2016-12-21 05:00] LABS: ALBUMIN 2.2 g/dL (3.4-5.0); BILIRUBIN,DIRECT 0.1 mg/dL (0.0-0.2); BILIRUBIN,TOTAL 0.4 mg/dL (0.2-1.0); CALCIUM, SERUM 8.2 mg/dL (8.5-10.1); CREATININE 1.3 mg/dL (0.6-1.3); MAGNESIUM 2.3 mg/dL (1.8-2.4); PHOSPHORUS 2.3 mg/dL (2.5-4.9); POTASSIUM 3.2 mmol/L (3.5-5.1); TOTAL PROTEIN, SERUM 6.5 g/dL (6.4-8.2)
[2016-12-21 05:19] LABS: BAND % (MANUAL) 4 % (0.0-5.0); LYMPHOCYTES % (MANUAL) 4 % (16-48); MONOCYTES % (MANUAL) 2 % (0-11.0); NEUTROPHILS % (MANUAL) 90 (42-76)
--- NOTE | 2016-12-21 07:05 | NUR ---
RN INITIAL NOTES RECEIVED PT ASLEEP, EASILY AROUSABLE. ON 02 AT 4LPM VIA NC. NO RESPIRATORY DISTRESS NOTED. DENIES ANY PAIN. RIGHT SUBCLAVIAN TLC IN PLACE. ON LEVO AT 4MCG/MIN. WILL MONITOR BP. ON IVF: NS+KCL 20MEQ AT 150ML/HR. FC IN PLACE. NO HEMATURIA NOTED. BLE ELEVATED. PT COMFORTABLE. CALL LIGHT WITHIN REACH. WILL MONITOR.
[2016-12-21] MEDS: METRONIDAZOLE 500MG/ NS 100ML 500 MG in PREMIX 1 EA IV SCH ×3 (08:05→23:14)
[2016-12-21] MEDS: VANCOMYCIN HCL 125 MG/2.5 ML ORAL.SUSP PO SCH ×4 (08:05→20:21)
[2016-12-21] MEDS: CHLORHEXIDINE GLUCONATE 15 ML UDC MM SCH ×2 (08:05→20:15)
[2016-12-21] MEDS: ASCORBIC ACID 500 MG TABLET PO SCH (08:06)
[2016-12-21] MEDS: HYDROCORTISONE SOD SUCCINATE 100 MG/2 ML VIAL IV SCH ×3 (08:06→16:17)
[2016-12-21] MEDS: MULTIVITAMINS,THERAGRAN 1 UDTAB TABLET PO SCH (08:06)
[2016-12-21] MEDS: FINASTERIDE (5 MG) 5 MG TABLET PO SCH (08:06)
[2016-12-21] MEDS: TRAMADOL HCL 50 MG TABLET PO SCH ×3 (08:06→16:17)
[2016-12-21] MEDS: FERROUS SULFATE (325 MG) 325 MG/TAB TABLET PO SCH ×3 (08:06→16:17)
[2016-12-21] MEDS: ACIDOPHILUS/BULGARICUS 1 EACH TAB.CHEW PO SCH ×3 (08:06→16:17)
[2016-12-21] MEDS: PANTOPRAZOLE 40 MG TABLET.DR PO SCH (08:06)
[2016-12-21 08:16] LABS: CARCINOEMBRYONIC AG (CEA) 3.3 ng/mL (0.0-4.7)
--- NOTE | 2016-12-21 08:18 | NUR ---
WOUND CARE CONSULT PATIENT SEEN AND SKIN INTEGRITY ASSESSMENT DONE. PLEASE SEE SAP BOBJ DEVELOPER ASSESSMENT IN PCS FOR TODAY ALONG WITH ALL RECOMMENDATIONS. RECOMMEND SURGICAL CONSULT WHICH HAS BEEN DONE BY LOLY CHATTERJEE. WOUND TREATMENT ORDERS DISCUSSED WITH SURGEON AND SURGEON IN AGREEMENT. PATIENT WITH YOUSUF AT 12, 1ST STEP LOW AIRLOSS MATTRESS IN USE FOR TMT AND SKIN MANAGEMENT. CONTINUE TURNING SCHED Q 2 HOURS PATIENT CONDITION PERMITS, CONTINUE USE OF Z GUARD FOR SKIN/MOISTURE MANAGEMENT AND CONTINUE HEEL FLOATING. ALL DISCUSSED WITH NURSING AT THE BEDSIDE. MD IN AGREEMENT WITH PLAN OF CARE. Addendum: 12/21/16 at 0821 by MINI FUNG WNDNU Amended: Links added.
[2016-12-21] MEDS: MUPIROCIN OINT 2% 22 GM TUBE SCH ×2 (08:19→20:16)
[2016-12-21] MEDS ORDERED: POTASSIUM PHOSPHATE MM 15 MMOL in IV D5W 250 ML IV SCH (08:30)
--- NOTE | 2016-12-21 08:30 | NUR ---
RN NOTES SEEN AND EXAMINED BY DR. CALDERA. AWARE OF LAB VALUES: WBC 31, POTASSIUM 3.2, PHOSPHORUS 2.3. ON NS+KCL 20MEQ AT 150ML/HR. ON LEVO AT 2MCG/MIN. MD ORDERED POTASSIUM PHOSPHATE AND KCL 20MEQ X2 DOSES. NOTED AND CARRIED OUT. PT AWARE.
--- NOTE | 2016-12-21 08:50 | NUR ---
RN NOTES CALLED DR. ROCHE REGARDING ABDOMEN XRAY RESULT DISCUSSED BY DR. ANAYA FROM RADIOLOGY. LEFT A MESSAGE. AWAITING CALL BACK.
[2016-12-21] MEDS: POTASSIUM PHOSPHATE MM 7.5 MMOL in IV D5W 100 ML IV SCH ×2 (09:10→12:17)
[2016-12-21] MEDS: POTASSIUM CHLORIDE 20 MEQ TAB.PRT.SR PO SCH ×2 (09:10→10:09)
[2016-12-21] MEDS: HYDROCODONE/APAP 5/325MG 1 EACH TABLET PO PRN ×2 (09:13→20:27)
--- NOTE | 2016-12-21 09:35 | NUR ---
RN NOTES SEEN AND EXAMINED BY DR. RUTH ROCHE. AWARE OF LAB VALUES: WBC 31, POTASSIUM 3.2, PHOSPHORUS 2.3. ALSO AWARE OF ABDOMEN XRAY RELAYED BY DR. NAAYA FROM RADIOLOGY. PT ON LEVO, TITRATED ACCORDINGLY. ON IVF. MD ORDERED TO PUT ON NPO AND WILL CALL FOR SURGERY CONSULT. PT AWARE.
[2016-12-21] MEDS: HYDROGEL DRESSING 90 GM TUBE TP SCH (10:48)
[2016-12-21] MEDS ORDERED: DIATR MEGLU/DIATRIZOATE SODIUM 30 ML BOTTLE (GASTROGRAPHIN) ONE (12:58)
[2016-12-21] MEDS ORDERED: IV NS 0.9% 250 ML IV ONE (15:28)
[2016-12-21] MEDS ORDERED: IOHEXOL-300 100 ML VIAL IV ONE (15:28)
--- NOTE | 2016-12-21 16:00 | NUR ---
RN NOTES PT BACK FROM CT ABDOMEN/PELVIS WITH CONTRAST. PLACED COMFORTABLY BACK TO ROOM. ON 02 AT 4LPM VIA NC. NO RESPIRATORY DISTRESS NOTED. NO SOB NOTED. DENIES ANY PAIN. BACK IN STABLE CONDITION. CALL LIGHT WITHIN REACH.
--- NOTE | 2016-12-21 18:30 | NUR ---
RN NOTES SEEN AND EXAMINED BY SHAUN SOUSA WORKS UNDER DR. LOLY CHATTERJEE. AWARE OF ABDOMEN XRAY RESULT. CT ABDOMEN/PELVIS WITH CONTRAST RESULT. STILL PENDING. ORDERED INSERT NGT AND CONNECT TO LOW INTERMITTENT SUCTION. NOTED AND CARRIED OUT.
--- NOTE | 2016-12-21 18:46 | NUR ---
RN CLOSING NOTES PT REMAINS ON 02 AT 4LPM VIA NC. NO RESPIRATORY DISTRESS NOTED. NO SOB NOTED. DENIES ANY PAIN. NGT IN PLACE, CONNECTED TO LOW INTERMITTENT SUCTION. RIGHT SUBCLAVIAN IN PLACE. IVF INFUSING. FC IN PLACE. TX ORDERED. KEPT CLEAN AND DRY. REPOSITIONED Q2. BLE ELEVATED. CALL LIGHT WITHIN REACH. WILL ENDORSE FOR CONTINUITY OF CARE.
--- NOTE | 2016-12-21 19:39 | NUR ---
RELIGION PROFESSOR. INITIAL ASSESSMENT. RECEIVED THE PT REST ON THE BED. AWAKE, ALERT, FOLLOW COMMANDS. FIBERGLASS FINISHER SHOWING NSR. OXYGEN 4L VIA NASAL CANNULA. SAT 94%. NO ACUTE DISTRESS NOTED. FIBERGLASS FINISHER SHOWING NSR, IV RT SUBCLAVIAN TRIPLE LUMEN. IVF NS IN POTASSIUM 20MEQ 150ML/H. LT NARE NGT LOW INTERMITTENT SUCTION. NPO. HOB ELEVATED. ABDOMEN DISTENDED. TURN AND REPOSITION Q2H. WILL CONTINUE TO MONITOR VITALS.
[2016-12-21] MEDS: CEFTRIAXONE 1 G in IV D5W 50 ML IV SCH (20:15)
[2016-12-21] MEDS: DOCUSATE SODIUM 100 MG CAPSULE PO SCH (22:00)
[2016-12-22] VITALS (60 sets, daily range): BP systolic 73–168; BP diastolic 33–88
[2016-12-22] MEDS: NOREPINEPHRINE 16 MG in IV D5W 500 ML IV PRN (01:03)
[2016-12-22] MEDS: Potassium Chloride 20 MEQ in IV NS 0.9% 1,000 ML IV PRN ×2 (01:13→08:12)
--- NOTE | 2016-12-22 01:15 | NUR ---
ADVERTISING ASSISTANT MANAGER. BLOOD PRESSURE 74/45. MANUAL BP X3 TAKEN STILL BP LOW. LEVOPHED RESTARTED. 2MCG/MIN.
--- NOTE | 2016-12-22 03:28 | NUR ---
RUBBER MIXER. AM CARE, ORAL CARE, BED BATH GIVEN. LINEN CHANGED. REMAINING SAME OXYGEN TOLERATED WELL. SAT 94%.NO ACUTE DISTRESS NOTED. MANAGER CAR SHOWING NSR, IV RT SUBCLAVIAN TRIPLE LUMEN. IVF NS IN POTASSIUM 20MEQ @150ML/H. HOB ELEVATED. NPO. ABDOMEN DISTENDED. LT NARE NGT LOW INTERMITTENT SUCTION. LEVOPHED 4MCG/MIN. AFEBRILE. FC PATENT. URINE DRAINING. TURN AND REPOSITION Q2H. WILL CONTINUE TO MONITOR VITALS.
[2016-12-22 04:47] LABS: BASOPHILS % (AUTO) 0.1 % (0.0-2.0); HEMATOCRIT 29 % (39-51); HEMOGLOBIN 9.7 g/dL (13.5-17.5); LYMPHOCYTES # (AUTO) 1.1 /CMM (0.8-4.8); LYMPHOCYTES % (AUTO) 3.8 % (20.0-44.0); MEAN CORPUSCULAR HEMOGLOBIN 29 PG (26.0-33.0); MEAN CORPUSCULAR HGB CONC 33 g/dl (31.0-36.0); MEAN CORPUSCULAR VOLUME 88 fL (80-96); MONOCYTES % (AUTO) 0.1 % (2.0-12.0); NEUTROPHILS # (AUTO) 28.8 /CMM (1.8-8.9); PLATELET COUNT (AUTO) 108 /CMM (150-450); RDW COEFFICIENT OF VARIATION 14.9 (11.5-15.0); RED BLOOD CELL COUNT(AUTO) 3.35 MIL/uL (4.5-6.0)
[2016-12-22 04:53] LABS: CALCIUM, SERUM 7.9 mg/dL (8.5-10.1); CREATININE 1.1 mg/dL (0.6-1.3)
[2016-12-22] MEDS: GABAPENTIN 300 MG CAPSULE PO SCH ×4 (05:00→20:37)
[2016-12-22] MEDS: MIDODRINE HCL (5MG) 5 MG TABLET PO SCH ×3 (05:00→20:37)
--- NOTE | 2016-12-22 06:00 | NUR ---
agricultural agent. ngt 250ml. bile .
[2016-12-22 06:07] LABS: POTASSIUM 2.8 mmol/L (3.5-5.1)
[2016-12-22 06:09] LABS: BAND % (MANUAL) 5 % (0.0-5.0); LYMPHOCYTES % (MANUAL) 4 % (16-48); MONOCYTES % (MANUAL) 1 % (0-11.0); NEUTROPHILS % (MANUAL) 90 (42-76)
[2016-12-22] MEDS ORDERED: POTASSIUM CL. PREMIX PERIPHER. 50 ML ONE (06:45)
[2016-12-22] MEDS: POTASSIUM CL. PREMIX PERIPHER. 50 ML IV SCH ×10 (06:50→16:46)
--- NOTE | 2016-12-22 07:30 | NUR ---
PT AOX3, LEVO AT 4MICS, SBP MAINTAINED ABOVE 90, PT STATED TH HAS LEFT HAND PAIN 9/. PT NPO DUE TO NGT TO LOW INT SUCTION. 200 ML BRIGHT RED BLOOD NOTED IN THE SUCTION CONTAINER. DR ASHLEY HERE AT BEDSIDE. WILL ORDER HH, AND PROTONIX GTT.
[2016-12-22] MEDS: HYDROCORTISONE SOD SUCCINATE 100 MG/2 ML VIAL IV SCH ×3 (08:11→16:46)
[2016-12-22] MEDS: METRONIDAZOLE 500MG/ NS 100ML 500 MG in PREMIX 1 EA IV SCH ×2 (08:11→16:17)
[2016-12-22] MEDS: HYDROGEL DRESSING 90 GM TUBE TP SCH (08:14)
[2016-12-22] MEDS: MUPIROCIN OINT 2% 22 GM TUBE SCH ×2 (08:14→20:38)
[2016-12-22] MEDS: Z GUARD REMEDY 2 OZ OINT TP PRN (08:14)
[2016-12-22] MEDS ORDERED: PANTOPRAZOLE 80 MG in IV NS 0.9% 100 ML IV ONE (08:30)
[2016-12-22] MEDS ORDERED: MORPHINE SULFATE INJ 2 MG/ML DISP.SYRIN IV PRN (08:30)
[2016-12-22] MEDS ORDERED: PANTOPRAZOLE 80 MG in IV NS 0.9% 500 ML IV PRN (08:30)
--- NOTE | 2016-12-22 08:45 | NUR ---
DR OLIVARES UPDATED ON CT ABD. RESULTS AND BLOODY NGT OUTPUT NOW 250ML. NEW ORDERS FOR REGLAN IV, SANDOSTATIN GTT, AND PRBC TRANSFUSION PARAMETERS OBTAINED VIA THE PHONE.
[2016-12-22] MEDS: CHLORHEXIDINE GLUCONATE 15 ML UDC MM SCH ×2 (09:00→20:36)
[2016-12-22] MEDS: FINASTERIDE (5 MG) 5 MG TABLET PO SCH (09:00)
[2016-12-22] MEDS: FERROUS SULFATE (325 MG) 325 MG/TAB TABLET PO SCH ×3 (09:00→17:00)
[2016-12-22] MEDS: VANCOMYCIN HCL 125 MG/2.5 ML ORAL.SUSP PO SCH ×5 (09:00→20:36)
[2016-12-22] MEDS: TRAMADOL HCL 50 MG TABLET PO SCH ×3 (09:00→17:00)
[2016-12-22] MEDS: ACIDOPHILUS/BULGARICUS 1 EACH TAB.CHEW PO SCH ×3 (09:00→17:00)
[2016-12-22] MEDS: MULTIVITAMINS,THERAGRAN 1 UDTAB TABLET PO SCH (09:00)
[2016-12-22] MEDS: ASCORBIC ACID 500 MG TABLET PO SCH (09:00)
[2016-12-22] MEDS ORDERED: OCTREOTIDE 1,250 MCG in IV NS 0.9% 247.5 ML IV PRN (09:30)
[2016-12-22] MEDS: MORPHINE SULFATE INJ 10 MG/ML DISP.SYRIN IV PRN ×3 (10:00→21:58)
[2016-12-22] MEDS: PANTOPRAZOLE 40 MG VIAL IV SCH ×2 (10:00→20:36)
[2016-12-22 10:09] LABS: HEMOGLOBIN 9.8 g/dL (13.5-17.5)
[2016-12-22] MEDS ORDERED: METOCLOPRAMIDE HCL 10 MG/2 ML VIAL IV ONE (10:30)
[2016-12-22] MEDS ORDERED: OCTREOTIDE 50 MCG in IV NS 0.9% 50 ML IV ONE (10:30)
--- NOTE | 2016-12-22 12:00 | NUR ---
NGT OUTPUT NOW LIGHT BROWN COLOR, NO BLOOD NOTED VIA NGT.
[2016-12-22 14:51] LABS: INR 1.08 (0.87-1.13); PROTHROMBIN TIME 11.2 SECS (9.5-12.7)
[2016-12-22] MEDS: CEFTRIAXONE 1 G in IV D5W 50 ML IV SCH (16:13)
--- NOTE | 2016-12-22 18:00 | NUR ---
DR CHATTERJEE NOTIFIED ON CT RESULT, NO OUTPUT VIA NGT SINCE 1500. OK TO D/C NGT, OK PO MEDS, OK FULL LIQUID DIET.
[2016-12-22 18:18] LABS: HEMOGLOBIN 10.7 g/dL (13.5-17.5)
--- NOTE | 2016-12-22 19:00 | NUR ---
SHAUN SOUSA AT BEDSIDE. WILL DO DEBRIDEMENT OF SACRAL ST 4 ON 12/23.
[2016-12-22] MEDS: DOCUSATE SODIUM 100 MG CAPSULE PO SCH (20:37)
[2016-12-23] VITALS (26 sets, daily range): BP systolic 84–157; BP diastolic 33–103
[2016-12-23] MEDS: METRONIDAZOLE 500MG/ NS 100ML 500 MG in PREMIX 1 EA IV SCH ×4 (00:02→23:45)
[2016-12-23 01:46] LABS: HEMOGLOBIN 10.2 g/dL (13.5-17.5)
[2016-12-23 05:11] LABS: BASOPHILS % (AUTO) 0.1 % (0.0-2.0); HEMATOCRIT 31 % (39-51); HEMOGLOBIN 10.2 g/dL (13.5-17.5); LYMPHOCYTES # (AUTO) 1.6 /CMM (0.8-4.8); LYMPHOCYTES % (AUTO) 9.1 % (20.0-44.0); MEAN CORPUSCULAR HEMOGLOBIN 29 PG (26.0-33.0); MEAN CORPUSCULAR HGB CONC 34 g/dl (31.0-36.0); MEAN CORPUSCULAR VOLUME 87 fL (80-96); MONOCYTES # (AUTO) 0.1 /CMM (0.1-1.30); MONOCYTES % (AUTO) 0.5 % (2.0-12.0); NEUTROPHILS # (AUTO) 15.5 /CMM (1.8-8.9); NEUTROPHILS % (AUTO) 90.3 % (43.0-81.0); PLATELET COUNT (AUTO) 136 /CMM (150-450); RDW COEFFICIENT OF VARIATION 15.1 (11.5-15.0); RED BLOOD CELL COUNT(AUTO) 3.52 MIL/uL (4.5-6.0); WHITE BLOOD COUNT (AUTO) 17.1 K/uL (4.3-11.0)
[2016-12-23 05:24] LABS: CALCIUM, SERUM 7.9 mg/dL (8.5-10.1); CREATININE 1.1 mg/dL (0.6-1.3); MAGNESIUM 1.9 mg/dL (1.8-2.4); PHOSPHORUS 3.6 mg/dL (2.5-4.9); POTASSIUM 2.9 mmol/L (3.5-5.1)
[2016-12-23] MEDS: GABAPENTIN 300 MG CAPSULE PO SCH ×3 (05:24→21:01)
[2016-12-23] MEDS: MIDODRINE HCL (5MG) 5 MG TABLET PO SCH ×3 (05:24→21:02)
[2016-12-23 05:37] LABS: BAND % (MANUAL) 3 % (0.0-5.0); LYMPHOCYTES % (MANUAL) 10 % (16-48); MONOCYTES % (MANUAL) 3 % (0-11.0); NEUTROPHILS % (MANUAL) 84 (42-76)
[2016-12-23] MEDS ORDERED: POTASSIUM CL. PREMIX PERIPHER. 50 ML ONE (06:44)
--- NOTE | 2016-12-23 06:48 | NUR ---
SPOKE TO JAVID TSAI, AWARE OF CRITICAL LAB POTASSIUM 2.9, YESTERDAY 2.8, WITH NEW ORDER TO GIVE 10 MEQ POTASSIUM TIMES 10 BAGS OVER 10 HOURS. JAVID AWARE OF BUN AND CREAT RESULTS. CHARGE NURSE AWARE.
[2016-12-23] MEDS: POTASSIUM CL. PREMIX PERIPHER. 50 ML IV SCH ×14 (06:51→21:33)
--- NOTE | 2016-12-23 08:00 | NUR ---
ICU/RN PT IS IN THE BED.AWAKE,ALERT ,ORIENTED-4.V/S STABLE,AFEBRILE.NO PAIN REPORTED AT THIS TIME.PT HAS PT IS PARAPLEGIC.C-6 INJURY.POST TRAC.DECANNULATED.STOMA COVERED WITH DRY CLEAN DRESSING.
[2016-12-23] MEDS: ACIDOPHILUS/BULGARICUS 1 EACH TAB.CHEW PO SCH ×3 (08:52→16:14)
[2016-12-23] MEDS: ASCORBIC ACID 500 MG TABLET PO SCH (08:52)
[2016-12-23] MEDS: FERROUS SULFATE (325 MG) 325 MG/TAB TABLET PO SCH ×3 (08:52→16:14)
[2016-12-23] MEDS: HYDROCORTISONE SOD SUCCINATE 100 MG/2 ML VIAL IV SCH ×3 (08:52→16:14)
[2016-12-23] MEDS: FINASTERIDE (5 MG) 5 MG TABLET PO SCH (08:52)
[2016-12-23] MEDS: CHLORHEXIDINE GLUCONATE 15 ML UDC MM SCH ×2 (08:52→21:01)
[2016-12-23] MEDS: PANTOPRAZOLE 40 MG VIAL IV SCH ×2 (08:52→21:01)
[2016-12-23] MEDS: MULTIVITAMINS,THERAGRAN 1 UDTAB TABLET PO SCH ×2 (08:55→09:16)
[2016-12-23] MEDS: TRAMADOL HCL 50 MG TABLET PO SCH ×3 (08:55→16:13)
[2016-12-23 09:00] LABS: HEMOGLOBIN 10.1 g/dL (13.5-17.5)
[2016-12-23] MEDS: MUPIROCIN OINT 2% 22 GM TUBE SCH ×2 (09:32→21:01)
[2016-12-23] MEDS: HYDROGEL DRESSING 90 GM TUBE TP SCH (09:33)
[2016-12-23] MEDS: MORPHINE SULFATE INJ 10 MG/ML DISP.SYRIN IV PRN ×2 (11:23→23:50)
[2016-12-23] MEDS ORDERED: POTASSIUM CL. PREMIX PERIPHER. 50 ML IV SCH (15:00)
[2016-12-23] MEDS ORDERED: SILVER NITRATE APPLICATOR 1 EA BOX TP ONE (15:30)
[2016-12-23 16:41] LABS: HEMOGLOBIN 10.2 g/dL (13.5-17.5)
--- NOTE | 2016-12-23 17:00 | NUR ---
ICU/RN PM CARE PROVIDED.PT JUST HAVE SACRAL WOUND DEBARMENT .TOLERATED WELL.NO S/S OF BLEEDING NOTED AT THIS TIME.DUE MEDS ARE GIVEN ORDERED.DURING THE DAY PT RECEIVED 100 MEQ IV KCL. WILL REPEAT K LEVEL.PT IS EATING REGULAR DIET.TRACH STOMA COVERED WITH THE DRESSING.RIGHT SUBCLAVIAN TLC INFUSING WITH FLUIDS ORDERED.F/C DRAINING WITH YELLOW URINE .V/S STABLE,AFEBRILE.NO PAIN REPORTED AT THIS TIME.REPOSITION FOR COMFORT.
--- NOTE | 2016-12-23 18:00 | NUR ---
ICU/RN K-3.[address]DR ASHLEY NOTIFIED.40 MEQ KLC IV MORE ORDERED.PT EATS 100% FROM HIS MEAL TRAY.F/C DRAINED WITH 2L .REPOSITION FOR COMFORT.CONTINUE MONITORING.
--- NOTE | 2016-12-23 20:00 | NUR ---
Received patient A/O X 4.VS stable.Hemodynamically stable.SR no ectopies noted.Denies pain or sob. On RA saturation 96%.Tolerating po intake.Trach stoma with dressing C/D/I. K+ 3.1 patient receiving 2nd bag KCL IVPB to complete 40 meq per order.All iv's infusing via right subclavian TLC.Site intact. Paraplegic turned and repositioned to comfort.Maintained on KCI mattress.Contact isolation for MRSA Nares observed.Safety precaution maintained with call light at BS.POC explained to patient.Verbalized understanding. Addendum: 12/23/16 at 2232 by PRAFUL CARLISLE RN FC draining moderate clear yellow urine.
[2016-12-23] MEDS: CEFTRIAXONE 1 G in IV D5W 50 ML IV SCH (21:01)
[2016-12-23] MEDS: DOCUSATE SODIUM 100 MG CAPSULE PO SCH (21:02)
--- NOTE | 2016-12-23 23:50 | NUR ---
Patient resting complaints of pain to left hand.PRN morphine administered.Will reassess.Turned and repositioned.VS stable.
[2016-12-24] VITALS (23 sets, daily range): BP systolic 98–167; BP diastolic 61–105
[2016-12-24 00:46] LABS: HEMOGLOBIN 9.8 g/dL (13.5-17.5)
--- NOTE | 2016-12-24 02:50 | NUR ---
Patient resting desat to 79%-80%.Placed on 5L NC.HOB elevated.No acute respiratory distress noted. Continue monitoring.O2 sat up to 90%-94%.
--- NOTE | 2016-12-24 04:00 | NUR ---
Resting.VS stable.No pain.Turned and repositioned.
[2016-12-24 04:44] LABS: BASOPHILS % (AUTO) 0.2 % (0.0-2.0); EOSINOPHILS % (AUTO) 0.2 % (0.0-6.0); HEMATOCRIT 28 % (39-51); HEMOGLOBIN 9.4 g/dL (13.5-17.5); LYMPHOCYTES # (AUTO) 2.1 /CMM (0.8-4.8); LYMPHOCYTES % (AUTO) 15.6 % (20.0-44.0); MEAN CORPUSCULAR HEMOGLOBIN 29 PG (26.0-33.0); MEAN CORPUSCULAR HGB CONC 33 g/dl (31.0-36.0); MEAN CORPUSCULAR VOLUME 86 fL (80-96); MONOCYTES # (AUTO) 0.8 /CMM (0.1-1.30); MONOCYTES % (AUTO) 6.2 % (2.0-12.0); NEUTROPHILS # (AUTO) 10.6 /CMM (1.8-8.9); NEUTROPHILS % (AUTO) 77.8 % (43.0-81.0); PLATELET COUNT (AUTO) 156 /CMM (150-450); RDW COEFFICIENT OF VARIATION 14.8 (11.5-15.0); WHITE BLOOD COUNT (AUTO) 13.6 K/uL (4.3-11.0)
[2016-12-24 04:56] LABS: CALCIUM, SERUM 7.8 mg/dL (8.5-10.1); CREATININE 1.2 mg/dL (0.6-1.3); MAGNESIUM 1.5 mg/dL (1.8-2.4); PHOSPHORUS 2.4 mg/dL (2.5-4.9); POTASSIUM 2.9 mmol/L (3.5-5.1)
[2016-12-24] MEDS: GABAPENTIN 300 MG CAPSULE PO SCH ×3 (05:10→21:40)
[2016-12-24] MEDS: MIDODRINE HCL (5MG) 5 MG TABLET PO SCH ×3 (05:10→21:41)
--- NOTE | 2016-12-24 06:00 | NUR ---
Patient awake.VS stable.Bed bath rendered.Linens changed.Turned and repositioned.Denies pain or sob.
[2016-12-24] MEDS ORDERED: POTASSIUM CL. PREMIX PERIPHER. 50 ML ONE (06:03)
[2016-12-24] MEDS ORDERED: Magnesium 1GM/D5W 100ML PREMIX 100 ML IV ONE (06:04)
[2016-12-24] MEDS: POTASSIUM CL. PREMIX PERIPHER. 50 ML IV SCH ×12 (06:25→18:29)
[2016-12-24] MEDS: Magnesium 1GM/D5W 100ML PREMIX 100 ML IV SCH ×2 (06:29→08:18)
--- NOTE | 2016-12-24 06:30 | NUR ---
AM labs resulted.K+ 2.9,MG 1.5 called to GIOVANI DUNN with orders and carried out.To give 60 meq KCL IVPB and 2 GM Magnesium IVPB.
--- NOTE | 2016-12-24 07:00 | NUR ---
ICU INITIAL NOTE RECEIVED PT IN BED, SLEEPING BUT EASY TO AROUSE, ABLE FOLLOW COMMANDS, UNABLE TO MOVE LOWER EXTREMITIES, PT IS PARAPLEGIC, ABLE TO MOVE UPPER EXTREMITIES, PT HAS MULTIPLE SKIN ISSUES, WOUND TREATMENTS ACK AND WILL BE CARRIED OUT, PT IS ON 5L NC, SATING WELL, NO S/S OF RESP. DISTRESS OR SOB NOTED AT THIS TIME, PT HAS UNLABORED AND EVEN BREATHING, PT IS ON BEDSIDE MONITOR SHOWING SB @ 57 BPM, NO S/S NO CHEST PAIN OR DISCOMFORT AT THIS TIME, PT HAS F/C DRAINING YELLOW URINE TO GRAVITY, PT HAS R SUBCLAVIAN TLC ,C/D/I/PATENT, FLUSHING WELL, RUNNING 1/2 NS +20 MEQ @100ML/HR, 1 GM MAGNESIUM @ 100ML/HR, POTASSIUM 10 MEQ @ 50ML/HR, NO S/S OF INFECTION/ INFILTRATION NOTED AT THIS TIME, ISOLATION PRECAUTIONS OBSERVED AT ALL TIMES, ALL SAFETY MEASURES IN PLACE AT ALL TIMES, CALL LIGHT WITHIN EASY REACH, WILL MONITOR PT CLOSELY FOR CHANGES
--- NOTE | 2016-12-24 07:00 | NUR ---
ICU NOTE DR. CALDERA AT BEDSIDE, AWARE OF ALL NEW LABS AND RESULTS. ALL NEW ORDERS ACK AND WILL BE CARRIED OUT
--- NOTE | 2016-12-24 07:57 | NUR ---
icu note pink medications were non administered for pt safety
[2016-12-24] MEDS: METRONIDAZOLE 500MG/ NS 100ML 500 MG in PREMIX 1 EA IV SCH ×2 (08:19→16:18)
[2016-12-24] MEDS: ACIDOPHILUS/BULGARICUS 1 EACH TAB.CHEW PO SCH ×3 (08:27→16:23)
[2016-12-24] MEDS: CHLORHEXIDINE GLUCONATE 15 ML UDC MM SCH ×2 (08:27→21:39)
[2016-12-24] MEDS: HYDROCORTISONE SOD SUCCINATE 100 MG/2 ML VIAL IV SCH ×2 (08:27→16:24)
[2016-12-24] MEDS: PANTOPRAZOLE 40 MG VIAL IV SCH ×2 (08:27→21:41)
[2016-12-24] MEDS: MULTIVITAMINS,THERAGRAN 1 UDTAB TABLET PO SCH (08:27)
[2016-12-24] MEDS: ASCORBIC ACID 500 MG TABLET PO SCH (08:27)
[2016-12-24] MEDS: LISINOPRIL (10MG) 10 MG TABLET PO SCH (08:28)
[2016-12-24] MEDS: TRAMADOL HCL 50 MG TABLET PO SCH ×3 (08:28→16:24)
[2016-12-24] MEDS: FINASTERIDE (5 MG) 5 MG TABLET PO SCH (08:28)
[2016-12-24] MEDS: MUPIROCIN OINT 2% 22 GM TUBE SCH ×2 (08:29→21:40)
[2016-12-24] MEDS: Z GUARD REMEDY 2 OZ OINT TP PRN (08:29)
[2016-12-24] MEDS: HYDROGEL DRESSING 90 GM TUBE TP SCH (08:29)
--- NOTE | 2016-12-24 11:45 | NUR ---
ICU NOTE MADE ROUNDS, AWARE OF ALL LABS AND TEST RESULTS, ALL NEW ORDERS ACK AND WILL BE CARRIED OUT
[2016-12-24] MEDS ORDERED: SIMETHICONE 80 MG TAB.CHEW PO PRN (12:00)
[2016-12-24] MEDS: SPIRONOLACTONE 25 MG TABLET PO SCH (12:00)
--- NOTE | 2016-12-24 12:39 | NUR ---
ICU NOTE DR. OLIVARES'S LINE O SCRIBE OPERATOR, MADE ROUNDS, AWARE OF ALL LABS AND RESULTS, ALL NEW ORDERS ACK AND WILL BE CARRIED OUT
[2016-12-24] MEDS: ACETAMINOPHEN 325 MG TABLET PO PRN (14:58)
[2016-12-24] MEDS ORDERED: K PHOS NEUTRAL 250 MG TABLET PO ONE (16:30)
--- NOTE | 2016-12-24 18:37 | NUR ---
ICU NOTE PT HAS 1 XL GREEN MUCUS LOOSE STOOL, PT CLEANED AND WOUND TREATMENT PROVIDED. POTASSIUM 120MEQ (12 BAGS) REPLACED
--- NOTE | 2016-12-24 20:30 | NUR ---
TELERN RECEIVED VIA BED ACCPD BY RN, A 56 Y/O MALE ALERT/ORIENTED X4, ABLE TO SPEAK ESTONIAN. RIGHT SUB TLC, FLUSHED ALL PORTS, PATENT. OPEN WOUND AT BUTTOCKS, DRESSINGS CHANGED, RIGHT HEEL DTI COVERED WITH MEPILEX. PLEASANT NO SOB, 02 MAINTAINED. V/S STABLE.
--- NOTE | 2016-12-24 20:34 | NUR ---
BUSINESS INVESTOR NOTES REPORT GIVEN TO RETAIL ASSOCIATE. PT TRANSFERRED TO ROOM 103, TELE STATUS. TRANSPORTED WITH ACLS PROTOCOL AND TWO RNs.
[2016-12-24] MEDS: CEFTRIAXONE 1 G in IV D5W 50 ML IV SCH (21:39)
[2016-12-24] MEDS: DOCUSATE SODIUM 100 MG CAPSULE PO SCH (21:41)
--- NOTE | 2016-12-24 22:00 | NUR ---
TELERN DUE MEDS ADMINISTERED. NO DIFFICULTY SWALLOWING.
[2016-12-25] VITALS (9 sets, daily range): BP systolic 87–132; BP diastolic 55–89
[2016-12-25] MEDS: METRONIDAZOLE 500MG/ NS 100ML 500 MG in PREMIX 1 EA IV SCH ×4 (00:16→23:41)
--- NOTE | 2016-12-25 01:51 | NUR ---
TELE SLEEPING, APPEARS COMFORTABLE
[2016-12-25] MEDS: GABAPENTIN 300 MG CAPSULE PO SCH ×3 (05:46→20:03)
[2016-12-25] MEDS: MIDODRINE HCL (5MG) 5 MG TABLET PO SCH ×3 (05:47→21:04)
[2016-12-25] MEDS: ACETAMINOPHEN 325 MG TABLET PO PRN ×2 (06:05→21:26)
--- NOTE | 2016-12-25 06:28 | NUR ---
TELERN LEFT HAND PAIN, MEDICATED WITH 650MG PO TYLENOL.
[2016-12-25 06:40] LABS: BASOPHILS % (AUTO) 0.2 % (0.0-2.0); EOSINOPHILS # (AUTO) 0.2 /CMM (0.0-0.7); EOSINOPHILS % (AUTO) 1.4 % (0.0-6.0); HEMATOCRIT 31 % (39-51); HEMOGLOBIN 10.4 g/dL (13.5-17.5); LYMPHOCYTES # (AUTO) 3.2 /CMM (0.8-4.8); LYMPHOCYTES % (AUTO) 19.4 % (20.0-44.0); MEAN CORPUSCULAR HEMOGLOBIN 29 PG (26.0-33.0); MEAN CORPUSCULAR HGB CONC 34 g/dl (31.0-36.0); MEAN CORPUSCULAR VOLUME 86 fL (80-96); MONOCYTES # (AUTO) 0.2 /CMM (0.1-1.30); MONOCYTES % (AUTO) 0.9 % (2.0-12.0); NEUTROPHILS # (AUTO) 13.1 /CMM (1.8-8.9); NEUTROPHILS % (AUTO) 78.1 % (43.0-81.0); PLATELET COUNT (AUTO) 201 /CMM (150-450); RDW COEFFICIENT OF VARIATION 14.7 (11.5-15.0); RED BLOOD CELL COUNT(AUTO) 3.59 MIL/uL (4.5-6.0); WHITE BLOOD COUNT (AUTO) 16.7 K/uL (4.3-11.0)
[2016-12-25 06:51] LABS: BILIRUBIN,TOTAL 0.3 mg/dL (0.2-1.0); CALCIUM, SERUM 7.4 mg/dL (8.5-10.1); CREATININE 0.9 mg/dL (0.6-1.3); MAGNESIUM 1.4 mg/dL (1.8-2.4); PHOSPHORUS 2.6 mg/dL (2.5-4.9); TOTAL PROTEIN, SERUM 5.6 g/dL (6.4-8.2)
[2016-12-25 07:35] LABS: POTASSIUM 2.5 mmol/L (3.5-5.1)
[2016-12-25] MEDS: Magnesium 1GM/D5W 100ML PREMIX 100 ML IV SCH ×4 (08:33→11:49)
[2016-12-25] MEDS: POTASSIUM CL. PREMIX PERIPHER. 50 ML IV SCH ×12 (08:33→19:56)
[2016-12-25] MEDS: HYDROCORTISONE SOD SUCCINATE 100 MG/2 ML VIAL IV SCH (08:33)
[2016-12-25] MEDS: ASCORBIC ACID 500 MG TABLET PO SCH (08:34)
[2016-12-25] MEDS: PANTOPRAZOLE 40 MG VIAL IV SCH ×2 (08:34→20:04)
[2016-12-25] MEDS: CHLORHEXIDINE GLUCONATE 15 ML UDC MM SCH ×2 (08:34→20:04)
[2016-12-25] MEDS: ACIDOPHILUS/BULGARICUS 1 EACH TAB.CHEW PO SCH ×3 (08:34→16:18)
[2016-12-25] MEDS: FINASTERIDE (5 MG) 5 MG TABLET PO SCH (08:35)
[2016-12-25] MEDS: MULTIVITAMINS,THERAGRAN 1 UDTAB TABLET PO SCH (08:35)
[2016-12-25] MEDS: LISINOPRIL (10MG) 10 MG TABLET PO SCH (08:35)
[2016-12-25] MEDS: SPIRONOLACTONE 25 MG TABLET PO SCH (08:35)
[2016-12-25] MEDS: HYDROGEL DRESSING 90 GM TUBE TP SCH (08:39)
[2016-12-25] MEDS: TRAMADOL HCL 50 MG TABLET PO SCH ×3 (08:39→16:19)
[2016-12-25] MEDS: MUPIROCIN OINT 2% 22 GM TUBE SCH ×2 (08:39→20:06)
[2016-12-25] MEDS: CEFTRIAXONE 1 G in IV D5W 50 ML IV SCH (21:03)
[2016-12-25] MEDS: DOCUSATE SODIUM 100 MG CAPSULE PO SCH (21:04)
[2016-12-26 04:00] VITALS: BP 111/64
[2016-12-26] MEDS: HYDROCODONE/APAP 5/325MG 1 EACH TABLET PO PRN (04:50)
[2016-12-26] MEDS: GABAPENTIN 300 MG CAPSULE PO SCH ×3 (04:50→20:37)
[2016-12-26] MEDS: MIDODRINE HCL (5MG) 5 MG TABLET PO SCH ×3 (04:51→20:37)
[2016-12-26 06:19] LABS: BASOPHILS # (AUTO) 0.1 /CMM (0.0-0.2); BASOPHILS % (AUTO) 0.5 % (0.0-2.0); EOSINOPHILS # (AUTO) 0.3 /CMM (0.0-0.7); EOSINOPHILS % (AUTO) 1.9 % (0.0-6.0); HEMATOCRIT 30 % (39-51); HEMOGLOBIN 10.1 g/dL (13.5-17.5); LYMPHOCYTES # (AUTO) 3.4 /CMM (0.8-4.8); LYMPHOCYTES % (AUTO) 22.4 % (20.0-44.0); MEAN CORPUSCULAR HEMOGLOBIN 29 PG (26.0-33.0); MEAN CORPUSCULAR HGB CONC 34 g/dl (31.0-36.0); MEAN CORPUSCULAR VOLUME 87 fL (80-96); MONOCYTES # (AUTO) 2.7 /CMM (0.1-1.30); MONOCYTES % (AUTO) 17.3 % (2.0-12.0); NEUTROPHILS # (AUTO) 8.9 /CMM (1.8-8.9); NEUTROPHILS % (AUTO) 57.9 % (43.0-81.0); PLATELET COUNT (AUTO) 218 /CMM (150-450); RDW COEFFICIENT OF VARIATION 14.5 (11.5-15.0); RED BLOOD CELL COUNT(AUTO) 3.47 MIL/uL (4.5-6.0); WHITE BLOOD COUNT (AUTO) 15.4 K/uL (4.3-11.0)
[2016-12-26 06:32] LABS: BILIRUBIN,TOTAL 0.2 mg/dL (0.2-1.0); CALCIUM, SERUM 7.6 mg/dL (8.5-10.1); MAGNESIUM 1.6 mg/dL (1.8-2.4); PHOSPHORUS 2.7 mg/dL (2.5-4.9); TOTAL PROTEIN, SERUM 5.6 g/dL (6.4-8.2)
[2016-12-26 06:46] LABS: POTASSIUM 2.4 mmol/L (3.5-5.1)
--- NOTE | 2016-12-26 06:58 | NUR ---
nurses notes received call at 0640 for critical lab value of potassium at 2.4, relayed to Jamie Sales SECONDARY SOCIAL STUDIES TEACHER @ 3058, orders received.
[2016-12-26] MEDS: METRONIDAZOLE 500MG/ NS 100ML 500 MG in PREMIX 1 EA IV SCH ×3 (07:12→23:22)
--- NOTE | 2016-12-26 07:35 | NUR ---
COMMERCIAL LINES MANAGER OPENING RECEIVED PATIENT A./OX4 UZBEK AND IRISH SPEAKING. PATIENT STATES PAIN SOMEWHAT CONTROLLED ON PAIN MEDICATIONS. PATIENT DENIES SOB, DIFFICULTY BREATHING AT THIS TIME. PATIENT ON 5 LPM NC SATTING 97%. WILL TITRATE TOLERATED. PATIENT JOHNSON IN PLACE DRAINING WELL; ANGELO CARE COMPLETED. PATIENT TURNED AND HEELS AND ELBOWS OFFLOADED. PICC LINE IN PLACE WITH DRESSING CLEAN DRY AND INTACT. PATIENT BED LOWERED AND LOCKED, RAILS UPX3 FOR SAFETY AND WILL ROUND Q2H OR LESS PER NEEDS. BED ALARM ON Addendum: 12/26/16 at 0738 by MINDY MEYER RN TELE NSR
--- NOTE | 2016-12-26 07:48 | NUR ---
HOUSE BUILDER NOTES PATIENT HAS A FOUL MOUTH CUSSING OUT STAFF FOR REPOSITIONING HIM [WHEN HE IS ASKING FOR REPOSITIONING]. ALL NEEDS IN REACH. BREAKFAST SET UP PATIENT REQUESTED. WILL MONITOR
[2016-12-26 07:56] LABS: EOSINOPHILS % (MANUAL) 3 % (0-4); LYMPHOCYTES % (MANUAL) 27 % (16-48); MONOCYTES % (MANUAL) 9 % (0-11.0); NEUTROPHILS % (MANUAL) 61 (42-76)
[2016-12-26 08:00] VITALS: BP_SYST 85; BP_SYST 97; BP_DIAS 36; BP_DIAS 51
[2016-12-26] MEDS ORDERED: Magnesium 1GM/D5W 100ML PREMIX 100 ML IV SCH ×2 (08:00→09:30)
[2016-12-26] MEDS ORDERED: POTASSIUM CL. PREMIX PERIPHER. 50 ML IV SCH (08:00)
[2016-12-26] MEDS: POTASSIUM CL. PREMIX PERIPHER. 50 ML IV SCH ×12 (08:31→22:15)
[2016-12-26] MEDS: PROSOURCE / PROSTAT (PYXIS) 30 ML UDC GT SCH (08:32)
[2016-12-26] MEDS: LISINOPRIL (10MG) 10 MG TABLET PO SCH (08:32)
[2016-12-26] MEDS: TRAMADOL HCL 50 MG TABLET PO SCH ×3 (08:32→16:20)
[2016-12-26] MEDS: PANTOPRAZOLE 40 MG VIAL IV SCH ×2 (08:32→20:35)
[2016-12-26] MEDS: ACIDOPHILUS/BULGARICUS 1 EACH TAB.CHEW PO SCH ×3 (08:32→16:21)
[2016-12-26] MEDS: ASCORBIC ACID 500 MG TABLET PO SCH (08:32)
[2016-12-26] MEDS: CHLORHEXIDINE GLUCONATE 15 ML UDC MM SCH ×2 (08:32→20:35)
[2016-12-26] MEDS: ZINC SULFATE 220 MG CAPSULE PO SCH (08:32)
[2016-12-26] MEDS: FINASTERIDE (5 MG) 5 MG TABLET PO SCH (08:32)
[2016-12-26] MEDS: MULTIVITAMINS,THERAGRAN 1 UDTAB TABLET PO SCH (08:32)
[2016-12-26] MEDS: HYDROGEL DRESSING 90 GM TUBE TP SCH (08:33)
[2016-12-26] MEDS: Z GUARD REMEDY 2 OZ OINT TP PRN ×3 (08:33→16:32)
[2016-12-26] MEDS: SPIRONOLACTONE 25 MG TABLET PO SCH (08:44)
[2016-12-26] MEDS: MUPIROCIN OINT 2% 22 GM TUBE SCH ×2 (08:44→20:38)
--- NOTE | 2016-12-26 09:25 | NUR ---
GRANT WRITER NOTES PER DR CALDERA PATIENT IS TO HAVE A TOTAL OF 3G OF MAGNESIUM AND 120MEQ OF POTASSIUM. ORDERS ADDED PER MD
[2016-12-26] MEDS: Magnesium 1GM/D5W 100ML PREMIX 100 ML IV SCH ×2 (09:40→10:42)
--- NOTE | 2016-12-26 10:30 | NUR ---
MS RN NOTES DR ROCHE AT BEDSIDE. PER MD GIVE PATIENT MOM 30ML Q6H UNTIL PATIENT HAS A BM. NOTIFIED MD PATIENT LEFT HAND HURTING AND MD EVALUATING. PER MD NO IVP MEDICATIONS DUE TO PATIENT BP. ONLY TYLENOL AND WHEN TOLERATES NORCO.
[2016-12-26] MEDS: MAGNESIUM HYDROXIDE 30 ML UDC PO PRN ×2 (10:42→16:21)
[2016-12-26] MEDS: HYDROGEL DRESSING 90 GM TUBE TP PRN ×2 (12:01→16:32)
[2016-12-26 16:00] VITALS: BP 89/54
[2016-12-26 16:09] LABS: RENIN, PLASMA 0.374 ng/mL/hr (0.167-5.380)
[2016-12-26 16:10] VITALS: BP 94/57
--- NOTE | 2016-12-26 19:04 | NUR ---
MS RN CLOSING PATIENT STABLE RESTING WELL AT THIS TIME. ALL DUE MEDS GIVEN AND ALL NEEDS MET. PATIENT PAIN MANAGED WITH NON OPOID DUE TO PATIENT BP AND PATIENT STATES UNDERSTANDING. PATIENT REPOSITIONED FOR INCREASED COMFORT. BED LOWERED AND LOCKED, RAILS UPX3 FOR SAFETY AND BED ALARM ON WITH NEEDS IN REACH. CARE ENDORSED TO RN FOR RICKY
[2016-12-26 20:00] VITALS: BP 97/60
--- NOTE | 2016-12-26 20:00 | NUR ---
RN OPENING NOTES: RECEIVED PT ON BED AWAKE AND ORIENTED X4 ON ROOM AIR NOT IN APPARENT DISTRESS. WITH COMPLAINTS OF PAIN RATED 10/10 AND IS UPSET THAT HIS PAIN WAS NOT MANAGED AT ALL. EXPLAINED TO PATIENT WHAT HE CAN HAVE AND WILL ASSESS FOR PAIN. IV ACCESS INTACT ON RIGHT UPPER SUBCLAVIAN NS AT TKO. TO GIVE 2 MORE BAGS OF POTASSIUM. PRN PAIN MEDS ORDERED. SKIN PROTECTIVE MEASURES ENSURED. CONTINUOUSLY MONITORED PATIENT.
[2016-12-26] MEDS: MORPHINE SULFATE INJ 10 MG/ML DISP.SYRIN IV PRN (20:32)
[2016-12-26] MEDS: CEFTRIAXONE 1 G in IV D5W 50 ML IV SCH (20:35)
[2016-12-26] MEDS: DOCUSATE SODIUM 100 MG CAPSULE PO SCH (21:03)
--- NOTE | 2016-12-26 23:00 | NUR ---
RN NOTES: DR OLIVARES'S MALT HOUSE KILN OPERATOR JAYSON IN, SEEN AND EXAMINED PATIENT, ORDERED TO GIVE FLEET ENEMA NO PO MEDS WORKING FOR BM. ORDER NOTED AND CARRIED OUT. 9113 PATIENT HAD 1 VERY LARGE BOWEL MOVEMENT SOFT TO LIQUID. ALMOST FILLED UP THE WHOLE PAD. SKIN CARE RENDERED. AT THIS TIME PATIENT REFUSING REPOSITIONING DESPITE EXPLANATION OF RISKS. CONCEDED TO PATIENT'S REQUEST " I REFUSE IT!" PATIENT GETTING UPSET AT THIS TIME.
[2016-12-26] MEDS: NA PHOS,M-B/NA PHOS,DI-BA 1 EA ENEMA RC PRN (23:22)
--- NOTE | 2016-12-27 00:30 | NUR ---
RN NOTES: WITH COMPLAINTS OF HEADACHE. PRN PAIN MEDS RENDERED. TO MONITOR FOR RESPONSE TO PAIN MEDICATION.
[2016-12-27] MEDS: HYDROCODONE/APAP 5/325MG 1 EACH TABLET PO PRN (01:01)
[2016-12-27 04:00] VITALS: BP 101/63
[2016-12-27] MEDS: ACETAMINOPHEN 325 MG TABLET PO PRN (05:38)
[2016-12-27] MEDS: GABAPENTIN 300 MG CAPSULE PO SCH ×3 (05:38→20:35)
[2016-12-27] MEDS: MIDODRINE HCL (5MG) 5 MG TABLET PO SCH ×3 (05:38→20:36)
[2016-12-27 06:41] LABS: BASOPHILS % (AUTO) 0.2 % (0.0-2.0); EOSINOPHILS # (AUTO) 0.3 /CMM (0.0-0.7); EOSINOPHILS % (AUTO) 2.1 % (0.0-6.0); HEMATOCRIT 30 % (39-51); HEMOGLOBIN 10.1 g/dL (13.5-17.5); LYMPHOCYTES # (AUTO) 2.7 /CMM (0.8-4.8); LYMPHOCYTES % (AUTO) 19.6 % (20.0-44.0); MEAN CORPUSCULAR HEMOGLOBIN 29 PG (26.0-33.0); MEAN CORPUSCULAR HGB CONC 34 g/dl (31.0-36.0); MEAN CORPUSCULAR VOLUME 86 fL (80-96); MONOCYTES # (AUTO) 0.1 /CMM (0.1-1.30); NEUTROPHILS # (AUTO) 10.5 /CMM (1.8-8.9); NEUTROPHILS % (AUTO) 77.1 % (43.0-81.0); PLATELET COUNT (AUTO) 263 /CMM (150-450); RDW COEFFICIENT OF VARIATION 15.2 (11.5-15.0); RED BLOOD CELL COUNT(AUTO) 3.45 MIL/uL (4.5-6.0); WHITE BLOOD COUNT (AUTO) 13.6 K/uL (4.3-11.0)
[2016-12-27 06:57] LABS: CALCIUM, SERUM 7.8 mg/dL (8.5-10.1); CREATININE 0.8 mg/dL (0.6-1.3); POTASSIUM 3.6 mmol/L (3.5-5.1)
--- NOTE | 2016-12-27 07:00 | NUR ---
RN CLOSING NOTES; PATIENT IN BED NOT IN APPARENT DISTRESS. NO COMPLAINTS OF PAIN AT THIS TIME. NO FURTHER BM. FC REMAINED INTACT, UO DRAINED AND DOCUMENTED; WOUND PHOTOS TAKEN AND FILED. AM LABS TAKEN RESULTS PENDING; SAFETY MEASURES ENSURED; ENDORSED TO AM SHIFT RN
--- NOTE | 2016-12-27 07:18 | NUR ---
MS RN OPENING RECEIVED PATIENT A/OX4. PATIENT STATES PAIN SOMEWHAT CONTROLLED ON PAIN MEDICATIONS. PATIENT DENIES SOB, DIFFICULTY BREATHING AT THIS TIME. PATIENT STABLE ON ROOM AIR. WILL TITRATE TOLERATED. PATIENT JOHNSON IN PLACE DRAINING WELL; ANGELO CARE COMPLETED. PATIENT TURNED AND HEELS AND ELBOWS OFFLOADED. PICC LINE IN PLACE WITH DRESSING CLEAN DRY AND INTACT. PATIENT BED LOWERED AND LOCKED, RAILS UPX3 FOR SAFETY AND WILL ROUND Q2H OR LESS PER NEEDS. BED ALARM ON
[2016-12-27 08:00] VITALS: BP 88/49
[2016-12-27] MEDS: LISINOPRIL (10MG) 10 MG TABLET PO SCH (08:33)
[2016-12-27] MEDS: METRONIDAZOLE 500MG/ NS 100ML 500 MG in PREMIX 1 EA IV SCH ×3 (08:36→23:14)
[2016-12-27] MEDS: FINASTERIDE (5 MG) 5 MG TABLET PO SCH (08:36)
[2016-12-27] MEDS: ACIDOPHILUS/BULGARICUS 1 EACH TAB.CHEW PO SCH ×3 (08:36→16:01)
[2016-12-27] MEDS: PANTOPRAZOLE 40 MG VIAL IV SCH ×2 (08:36→20:34)
[2016-12-27] MEDS: ASCORBIC ACID 500 MG TABLET PO SCH (08:36)
[2016-12-27] MEDS: CHLORHEXIDINE GLUCONATE 15 ML UDC MM SCH ×2 (08:36→20:35)
[2016-12-27] MEDS: MULTIVITAMINS,THERAGRAN 1 UDTAB TABLET PO SCH (08:36)
[2016-12-27] MEDS: ZINC SULFATE 220 MG CAPSULE PO SCH (08:36)
[2016-12-27] MEDS: PROSOURCE / PROSTAT (PYXIS) 30 ML UDC GT SCH (08:36)
[2016-12-27] MEDS: TRAMADOL HCL 50 MG TABLET PO SCH ×3 (08:37→16:01)
[2016-12-27] MEDS: Z GUARD REMEDY 2 OZ OINT TP PRN ×2 (08:37→12:57)
[2016-12-27] MEDS: SPIRONOLACTONE 25 MG TABLET PO SCH (08:37)
[2016-12-27] MEDS: HYDROGEL DRESSING 90 GM TUBE TP SCH (08:37)
[2016-12-27 08:40] VITALS: BP 94/58
[2016-12-27] MEDS: MUPIROCIN OINT 2% 22 GM TUBE SCH ×2 (08:53→20:38)
--- NOTE | 2016-12-27 09:00 | NUR ---
MS RN NOTES DR CALDERA AT BEDSIDE
[2016-12-27] MEDS: POTASSIUM CL. PREMIX PERIPHER. 50 ML IV SCH ×6 (09:48→16:51)
[2016-12-27 10:45] VITALS: BP 97/49
--- NOTE | 2016-12-27 12:45 | NUR ---
MS RN NOTES CALLED PHARMACY SPOKE WITH JACOB WE ARE OUT OF K. THEY WILL SEND WHEN ABLE
--- NOTE | 2016-12-27 12:46 | NUR ---
WOUND CARE CONSULT: PT PRESENTS WITH INTACT DEEP TISSUE INJURY TO RIGHT HEEL. SOME PEELING SKIN NOTED TO FEET. RECOMMENDATIONS MADE FOR SKIN CARE AND PROTECTION AND DISCUSSED WITH NURSING STAFF. PT ON FIRST STEP MATTRESS. WILL SEE PRN. CAMARENA IN AGREEMENT WITH PLAN OF CARE. Addendum: 12/27/16 at 1248 by MARSHALL PENNINGTON WNDNU Amended: Links added.
--- NOTE | 2016-12-27 14:31 | NUR ---
Unique Id: [id number]
[2016-12-27 16:00] VITALS: BP 111/72
--- NOTE | 2016-12-27 18:37 | NUR ---
MS RN CLOSING PATIENT STABLE NO COMPLICATIONS NO CHANGES. ALL DUE MEDS GIVEN AND ALL NEEDS MET. PATIENT NEEDS IN REACH AND PATIENT STATES NO NEEDS AT THIS TIME. BILAT HEELS OFFLOADED AND PATIENT CARE WILL BE ENDORSED TO RN FOR RICKY
--- NOTE | 2016-12-27 19:30 | NUR ---
MS RN OPENING NOTE RECEIVED PATIENT A/OX4. PATIENT STATES PAIN IN LEFT HAND, EXPLAINED TO PT THAT BP HAS TO BE CLOSELY MONITORED. PATIENT DENIES SOB, DIFFICULTY BREATHING AT THIS TIME. PATIENT STABLE ON ROOM AIR. PATIENT JOHNSON IN PLACE DRAINING WELL. PICC LINE IN PLACE WITH DRESSING CLEAN DRY AND INTACT. PATIENT BED LOWERED AND LOCKED, RAILS UPX3 FOR SAFETY AND WILL ROUND Q2H OR LESS PER NEEDS. BED ALARM ON. WILL CONTINUE TO MONITOR PT
[2016-12-27 20:00] VITALS: BP 98/65
[2016-12-27] MEDS ORDERED: NA PHOS,M-B/NA PHOS,DI-BA 1 EA ENEMA RC PRN (20:00)
[2016-12-27] MEDS ORDERED: MAGNESIUM CITRATE 296 ML BOTTLE PO ONE (20:00)
[2016-12-27] MEDS ORDERED: MINERAL OIL 133 ML (PYXIS) 1 EA ENEMA RC ONE (20:00)
[2016-12-27] MEDS: CEFTRIAXONE 1 G in IV D5W 50 ML IV SCH (20:35)
[2016-12-27] MEDS: DOCUSATE SODIUM 100 MG CAPSULE PO SCH (21:00)
[2016-12-28 04:00] VITALS: BP 116/72
[2016-12-28] MEDS: GABAPENTIN 300 MG CAPSULE PO SCH ×3 (04:14→20:49)
[2016-12-28] MEDS: HYDROCODONE/APAP 5/325MG 1 EACH TABLET PO PRN (04:14)
[2016-12-28] MEDS: MIDODRINE HCL (5MG) 5 MG TABLET PO SCH ×3 (04:16→20:49)
--- NOTE | 2016-12-28 06:18 | NUR ---
MS RN CLOSING PATIENT STABLE NO COMPLICATIONS NO CHANGES. ALL DUE MEDS GIVEN AND ALL NEEDS MET. BILATERAL HEELS OFFLOADED, WOUND CARE RENDERED. NO BM DURING MY SHIFT DESPITE RECEIVING MAG CITRATE AND MINERAL ENEMA. ALL NEEDS WERE ANTICIPATED AND MET. WILL ENDORSE TO DAYSHIFT
[2016-12-28 06:45] LABS: BASOPHILS % (AUTO) 0.3 % (0.0-2.0); EOSINOPHILS # (AUTO) 0.3 /CMM (0.0-0.7); EOSINOPHILS % (AUTO) 2.3 % (0.0-6.0); HEMATOCRIT 30 % (39-51); HEMOGLOBIN 10.2 g/dL (13.5-17.5); LYMPHOCYTES # (AUTO) 2.5 /CMM (0.8-4.8); LYMPHOCYTES % (AUTO) 19.2 % (20.0-44.0); MEAN CORPUSCULAR HEMOGLOBIN 29 PG (26.0-33.0); MEAN CORPUSCULAR HGB CONC 34 g/dl (31.0-36.0); MEAN CORPUSCULAR VOLUME 86 fL (80-96); MONOCYTES # (AUTO) 0.4 /CMM (0.1-1.30); MONOCYTES % (AUTO) 3.4 % (2.0-12.0); NEUTROPHILS # (AUTO) 9.6 /CMM (1.8-8.9); NEUTROPHILS % (AUTO) 74.8 % (43.0-81.0); PLATELET COUNT (AUTO) 331 /CMM (150-450); RDW COEFFICIENT OF VARIATION 15.7 (11.5-15.0); RED BLOOD CELL COUNT(AUTO) 3.51 MIL/uL (4.5-6.0); WHITE BLOOD COUNT (AUTO) 12.9 K/uL (4.3-11.0)
[2016-12-28 07:20] LABS: ALBUMIN 2.3 g/dL (3.4-5.0); BILIRUBIN,TOTAL 0.2 mg/dL (0.2-1.0); CALCIUM, SERUM 8.4 mg/dL (8.5-10.1); CREATININE 0.9 mg/dL (0.6-1.3); MAGNESIUM 1.7 mg/dL (1.8-2.4); PHOSPHORUS 2.9 mg/dL (2.5-4.9); POTASSIUM 3.7 mmol/L (3.5-5.1); TOTAL PROTEIN, SERUM 6.5 g/dL (6.4-8.2)
--- NOTE | 2016-12-28 07:30 | NUR ---
MS RN OPENING RECEIVED PATIENT A/OX4. PATIENT STATES PAIN SOMEWHAT CONTROLLED ON PAIN MEDICATIONS. PATIENT DENIES SOB, DIFFICULTY BREATHING AT THIS TIME. PATIENT STABLE ON ROOM AIR. PATIENT JOHNSON IN PLACE DRAINING WELL; ANGELO CARE COMPLETED. PATIENT REQUESTING TO STAY SUPINE; PLACED PILLOWS BILATERALLY ON FLANKS TOLERATED TO HELP OFFLOAD WEIGHT. HEELS AND ELBOWS OFFLOADED. PICC LINE IN PLACE WITH DRESSING CLEAN DRY AND INTACT. PATIENT BED LOWERED AND LOCKED, RAILS UPX3 FOR SAFETY AND WILL ROUND Q2H OR LESS PER NEEDS. BED ALARM ON
[2016-12-28 08:00] VITALS: BP 132/80
[2016-12-28] MEDS: MUPIROCIN OINT 2% 22 GM TUBE SCH ×2 (08:40→20:52)
[2016-12-28] MEDS: Z GUARD REMEDY 2 OZ OINT TP PRN (08:40)
[2016-12-28] MEDS: ASCORBIC ACID 500 MG TABLET PO SCH (08:40)
[2016-12-28] MEDS: HYDROGEL DRESSING 90 GM TUBE TP SCH (08:40)
[2016-12-28] MEDS: ACIDOPHILUS/BULGARICUS 1 EACH TAB.CHEW PO SCH ×3 (08:41→16:39)
[2016-12-28] MEDS: MULTIVITAMINS,THERAGRAN 1 UDTAB TABLET PO SCH (08:41)
[2016-12-28] MEDS: ZINC SULFATE 220 MG CAPSULE PO SCH (08:41)
[2016-12-28] MEDS: TRAMADOL HCL 50 MG TABLET PO SCH ×3 (08:41→16:39)
[2016-12-28] MEDS: FINASTERIDE (5 MG) 5 MG TABLET PO SCH (08:41)
[2016-12-28] MEDS: CHLORHEXIDINE GLUCONATE 15 ML UDC MM SCH ×2 (08:41→20:49)
[2016-12-28] MEDS: PANTOPRAZOLE 40 MG VIAL IV SCH ×2 (08:41→20:49)
[2016-12-28] MEDS: METRONIDAZOLE 500MG/ NS 100ML 500 MG in PREMIX 1 EA IV SCH ×3 (08:45→23:55)
[2016-12-28] MEDS ORDERED: POTASSIUM CL. PREMIX PERIPHER. 50 ML IV SCH (11:00)
[2016-12-28] MEDS: PROSOURCE / PROSTAT (PYXIS) 30 ML UDC GT SCH (11:17)
[2016-12-28] MEDS: POTASSIUM CHLORIDE 20 MEQ TAB.PRT.SR PO SCH ×2 (11:17→12:32)
[2016-12-28] MEDS: Magnesium 1GM/D5W 100ML PREMIX 100 ML IV SCH ×2 (11:17→12:31)
[2016-12-28] MEDS ORDERED: Zinc Sulfate PO (14:25)
[2016-12-28] MEDS ORDERED: Prosource GT (14:25)
[2016-12-28] MEDS ORDERED: Hydrogel Dressing TP (14:25)
[2016-12-28] MEDS ORDERED: SIME80TA15 PO (14:25)
--- NOTE | 2016-12-28 14:30 | NUR ---
MS RN NOTES MESSAGE TO CASE MANAGEMENT THAT PATIENT REFUSING TO GO TO [facility] AND WOULD LIKE TO DISCUSS OTHER PLACEMENTS
[2016-12-28] MEDS ORDERED: CEFT1FRO2 IV (15:34)
[2016-12-28] MEDS ORDERED: METR500T PO (15:34)
[2016-12-28 16:00] VITALS: BP 90/52
[2016-12-28] MEDS: LACTOBACILLUS RHAMNOSUS GG 1 EACH CAP.SPRINK PO SCH (16:39)
--- NOTE | 2016-12-28 19:20 | NUR ---
MS RN CLOSING PATIENT STABLE NO COMPLICATIONS NO CHANGES. ALL DUE MEDS GIVEN AND ALL NEEDS MET. PATIENT NEEDS IN REACH AND PATIENT STATES NO NEEDS AT THIS TIME. PATIENT REFUSING RIGHT OR LEFT LATERAL POSITIONING. CONTINUED TO WEDGE PILLOWS PATIENT ALLOWED FOR OFFLOADING SACRUM. BILAT HEELS AND ELBOWS OFFLOADED AND PATIENT CARE WILL BE ENDORSED TO RN FOR RICKY
[2016-12-28 20:00] VITALS: BP 97/61
--- NOTE | 2016-12-28 20:00 | NUR ---
JUNIOR DESIGNER - NOTES - RECEIVED PATIENT A/OX4. PATIENT STATES PAIN IN LEFT HAND, EXPLAINED TO PT THAT BP HAS TO BE CLOSELY MONITORED. PATIENT DENIES SOB. PATIENT STABLE ON ROOM AIR. PATIENT JOHNSON IN PLACE DRAINING WELL. PICC LINE IN PLACE WITH DRESSING CLEAN DRY AND INTACT. PATIENT BED LOWERED AND LOCKED, RAILS UPX3 FOR SAFETY AND WILL ROUND Q2H OR LESS PER NEEDS. BED ALARM ON. WILL CONTINUE TO MONITOR PT
[2016-12-28] MEDS: CEFTRIAXONE 1 G in IV D5W 50 ML IV SCH (20:51)
[2016-12-28] MEDS: DOCUSATE SODIUM 100 MG CAPSULE PO SCH (21:44)
[2016-12-29 04:00] VITALS: BP 115/80
[2016-12-29] MEDS: MIDODRINE HCL (5MG) 5 MG TABLET PO SCH ×2 (04:47→12:18)
[2016-12-29] MEDS: GABAPENTIN 300 MG CAPSULE PO SCH ×2 (04:47→12:11)
[2016-12-29] MEDS: HYDROCODONE/APAP 5/325MG 1 EACH TABLET PO PRN (05:49)
[2016-12-29 06:23] LABS: BASOPHILS # (AUTO) 0.1 /CMM (0.0-0.2); BASOPHILS % (AUTO) 0.5 % (0.0-2.0); EOSINOPHILS # (AUTO) 0.2 /CMM (0.0-0.7); EOSINOPHILS % (AUTO) 1.9 % (0.0-6.0); HEMATOCRIT 32 % (39-51); HEMOGLOBIN 10.6 g/dL (13.5-17.5); LYMPHOCYTES # (AUTO) 2.1 /CMM (0.8-4.8); LYMPHOCYTES % (AUTO) 17.2 % (20.0-44.0); MEAN CORPUSCULAR HEMOGLOBIN 29 PG (26.0-33.0); MEAN CORPUSCULAR HGB CONC 34 g/dl (31.0-36.0); MEAN CORPUSCULAR VOLUME 87 fL (80-96); MONOCYTES # (AUTO) 0.6 /CMM (0.1-1.30); MONOCYTES % (AUTO) 4.6 % (2.0-12.0); NEUTROPHILS # (AUTO) 9.1 /CMM (1.8-8.9); NEUTROPHILS % (AUTO) 75.8 % (43.0-81.0); PLATELET COUNT (AUTO) 389 /CMM (150-450); RDW COEFFICIENT OF VARIATION 15.5 (11.5-15.0); RED BLOOD CELL COUNT(AUTO) 3.63 MIL/uL (4.5-6.0); WHITE BLOOD COUNT (AUTO) 12.1 K/uL (4.3-11.0)
[2016-12-29 08:00] VITALS: BP 136/88
[2016-12-29 08:02] VITALS: BP 136/88
[2016-12-29] MEDS: PANTOPRAZOLE 40 MG VIAL IV SCH (08:43)
[2016-12-29] MEDS: METRONIDAZOLE 500MG/ NS 100ML 500 MG in PREMIX 1 EA IV SCH (08:43)
[2016-12-29] MEDS: LACTOBACILLUS RHAMNOSUS GG 1 EACH CAP.SPRINK PO SCH ×2 (08:44→17:23)
[2016-12-29] MEDS: CHLORHEXIDINE GLUCONATE 15 ML UDC MM SCH (08:44)
[2016-12-29] MEDS: TRAMADOL HCL 50 MG TABLET PO SCH ×3 (08:44→17:24)
[2016-12-29] MEDS: ZINC SULFATE 220 MG CAPSULE PO SCH (08:44)
[2016-12-29] MEDS: MULTIVITAMINS,THERAGRAN 1 UDTAB TABLET PO SCH (08:44)
[2016-12-29] MEDS: LACTULOSE 10 G/15 ML UDC (PYXIS) PO PRN (08:44)
[2016-12-29] MEDS: ACIDOPHILUS/BULGARICUS 1 EACH TAB.CHEW PO SCH ×3 (08:44→17:23)
[2016-12-29] MEDS: ASCORBIC ACID 500 MG TABLET PO SCH (08:44)
[2016-12-29] MEDS: FINASTERIDE (5 MG) 5 MG TABLET PO SCH (08:44)
[2016-12-29] MEDS: PROSOURCE / PROSTAT (PYXIS) 30 ML UDC GT SCH (08:45)
[2016-12-29] MEDS: HYDROGEL DRESSING 90 GM TUBE TP SCH (08:46)
[2016-12-29] MEDS: Z GUARD REMEDY 2 OZ OINT TP PRN ×2 (08:46→14:45)
[2016-12-29] MEDS: MUPIROCIN OINT 2% 22 GM TUBE SCH (08:46)
[2016-12-29] MEDS: MAGNESIUM HYDROXIDE 30 ML UDC PO PRN (11:18)
[2016-12-29 14:00] VITALS: BP 94/54
[2016-12-29] MEDS: NA PHOS,M-B/NA PHOS,DI-BA 1 EA ENEMA RC PRN (14:44)
[2016-12-29] MEDS: HYDROGEL DRESSING 90 GM TUBE TP PRN (14:45)
--- NOTE | 2016-12-29 15:00 | NUR ---
MS RN NOTES PER ORDER ENEMA GIVEN PATIENT HAVING DIFFICULTY HAVING A BOWEL MOVEMENT. AFTER ENEMA PATIENT HAD A VERY LARGE BOWEL MOVEMENT AND STOMACH AT THIS TIME IS LESS DISTENDED AND MORE SOFT AFTER BOWEL MOVEMENT. WOUND CARE COMPLETED AND MEASURED. PATIENT REQUESTING ONLY BILATERAL PILLOWS ON FLANKS AND LEGS.
--- NOTE | 2016-12-29 15:30 | NUR ---
MS RN NOTES NOTIFIED Dominga GLENN PATIENT HAS RED BUMPS/ PIMPLE LOOKING BUMPS POPPING UP UNDER RIGHT ARM AND LEFT ELBOW. PER PATIENT THESE COME AND GO. PER MD OK TO GIVE BENADRYL PO 25MG Q6H FOR COMFORT/ITCHING
[2016-12-29 16:00] VITALS: BP 101/58
[2016-12-29] MEDS ORDERED: diphenhydrAMINE HCL 25 MG CAPSULE PO PRN (16:30)
[2016-12-29] MEDS ORDERED: METRONIDAZOLE 500 MG TABLET PO SCH (17:18)
--- NOTE | 2016-12-29 18:34 | NUR ---
MS COMMERCIAL REPORTER PATIENT LEFT IN STABLE CONDITION NO COMPLICATIONS NOTED. ALL DUE MEDS GIVEN AND ALL NEEDS MET. PATIENT REPORT GIVEN TO SAY CENTENO FOR RICKY. ALL QUESTIONS ANSWERED AND UPDATED. PATIENT LEFT IN STABLE CONDITION. PICC LINE IN PLACE DRESSING INTACT AND CLEAN. PATIENT CAME WITH JOHNSON CATH IN; DISCHARGED WITH JOHNSON CATH. ANGELO CARE COMPLETED FOR PATIENT. PATIENT ABLE TO SIGN OWN DC PAPERWORK AND DISCHARGE PAPERWORK GIVEN TO EMT. PATIENT LEFT IN STABLE CONDITION
== END 2016-12-29 18:39 | DRG 710 ==
LOC: ER 17:16 → ICU 20:21 → CSC1 12-24 20:26 → TELE1 12-24 20:53 → MEDSG1 12-26 09:54
PROVIDERS: ADMIT Family Medicine; ATTEND Family Medicine
DX: A41.9 Sepsis, unspecified organism (principal); I21.4 Non-ST elevation (NSTEMI) myocardial infarction; N17.0 Acute kidney failure with tubular necrosis; K72.00 Acute and subacute hepatic failure without coma; R65.21 Severe sepsis with septic shock; J96.10 Chronic respiratory failure, unspecified whether with hypoxia or hypercapnia; E43 Unspecified severe protein-calorie malnutrition; J15.9 Unspecified bacterial pneumonia; R18.8 Other ascites; L89.154 Pressure ulcer of sacral region, stage 4; Z93.0 Tracheostomy status; E87.2 Acidosis; D68.59 Other primary thrombophilia; K51.30 Ulcerative (chronic) rectosigmoiditis without complications; G82.20 Paraplegia, unspecified; R13.10 Dysphagia, unspecified; N31.9 Neuromuscular dysfunction of bladder, unspecified; Z93.1 Gastrostomy status; Z87.891 Personal history of nicotine dependence; Z86.19 Personal history of other infectious and parasitic diseases; Z80.3 Family history of malignant neoplasm of breast; Z79.899 Other long term (current) drug therapy; Z88.8 Allergy status to other drugs, medicaments and biological substances; K21.9 Gastro-esophageal reflux disease without esophagitis; I70.0 Atherosclerosis of aorta; E78.5 Hyperlipidemia, unspecified; E87.70 Fluid overload, unspecified; E87.6 Hypokalemia; E86.9 Volume depletion, unspecified; D63.8 Anemia in other chronic diseases classified elsewhere; I12.9 Hypertensive chronic kidney disease with stage 1 through stage 4 chronic kidney disease, or unspecified chronic kidney disease; N18.9 Chronic kidney disease, unspecified; G81.94 Hemiplegia, unspecified affecting left nondominant side; H54.62 Unqualified visual loss, left eye, normal vision right eye; L89.619 Pressure ulcer of right heel, unspecified stage; F11.21 Opioid dependence, in remission; Z79.01 Long term (current) use of anticoagulants; K80.20 Calculus of gallbladder without cholecystitis without obstruction; K62.4 Stenosis of anus and rectum; A09 Infectious gastroenteritis and colitis, unspecified; Z87.820 Personal history of traumatic brain injury; N13.8 Other obstructive and reflux uropathy; Y95 Nosocomial condition; Z22.322 Carrier or suspected carrier of Methicillin resistant Staphylococcus aureus; N39.0 Urinary tract infection, site not specified; K59.00 Constipation, unspecified; B96.1 Klebsiella pneumoniae [K. pneumoniae] as the cause of diseases classified elsewhere
CPT/HCPCS: 36415; 71010-TC; 74000-TC; 80048-TC; 80053-TC; 80061-TC; 80076-TC; 80202-TC; 81000-TC; 82088; 82140-TC; 82306; 82378; 82570-TC; 82728-TC; 82746; 83540-TC; 83605-TC; 83615-TC; 83735-TC; 83935-TC; 84100-TC; 84132-TC; 84133-TC; 84244; 84439-TC; 84443-TC; 84484-TC; 84550-TC; 85025-TC; 85027-TC; 85045-TC; 85652-TC; 85730-TC; 86301; 87040-TC; 87081-TC; 87086-TC; 87186-TC; A4216; A4606; A6248; A6253; A6402; A6403; C1751; C9113; J0696; J1644; J1720; J2270; J2354; J2370; J2405; J2543; J2765; J3370; J3475; J3480; J3490; J7030; J7050; J7060; Q0163; Q9963; Q9967; Z7610